=== PATIENT | female | born 1935 | race Caucasian/White ===

== ENCOUNTER 2016-07-30 04:28 | Inpatient (IN) | payer MEDICARE ==
[~2016-07-30] VITALS: Ht 154.9 cm; Wt 104.3 kg
[2016-07-30] VITALS (12 sets, daily range): BP systolic 95–149; BP diastolic 56–92; PULSE 100–133; RESP 18–22; O2SAT 91–99
[~2016-07-30 04:28] MED LIST: AMLO-39 PO; Aspirin PO; CITA40TA PO; CLOP75TA3 PO; COMBIVENTA INH; DOCU100C PO; FERR325C PO; FLUT1DIS5 IH; FURO80TA83 PO; Isosorbide Mononitrate PO; LEVO112T4 PO; LOSA50TA37 PO; NAPR220C11 PO; NITR0.4T SL; PRAV40TA PO; TRAM50TA2 PO; TRAZ-118 PO; VITA1TAB26 PO; ZAFI20TA13 PO
--- NOTE | 2016-07-30 04:48 | ED.REPORT ---
HPI-General Illness Date of Service Jul 30, 2016 ED Provider: Pipe Tony MD An 80 year old female with a medical history including hypertension, sciatica, CHF, RI, chronic anemia, asthma, and renal cancer s/p right nephrectomy presents to the ED via EMS with bilateral buttocks pain (R>L) onset just prior to arrival, upon awakening. The pain radiates down her legs bilaterally, to her knees. The patient also reports recent cough. She denies other symptoms or injury/trauma to the area. Two days ago the patient was diagnosed with atrial fibrillation and placed on Coumadin and Cardizem. EMS found the patient with a BP of 113 systolic, in atrial fibrillation with RVR rate 110-140. Nursing Notes Stated Complaint: BUTTOCK PAIN Chief Complaint: Dysrhythmia/Cardiac Nursing Notes Reviewed: Yes Allergies: Coded Allergies: morphine (Verified Allergy, Severe, hallucinations/parinoid, 10/23/12) iodine (Verified Allergy, Mild, swelling and redness, 10/23/12) neomycin (Verified Allergy, Unknown, 01/16/14) Uncoded Allergies: TAPE (Allergy, Severe, BLISTERS, 10/23/12) Scheduled ([Isosorbide Mononitrate]) 30 MG TABLET.ER 30 MG PO HS ([Aspirin]) 81 MG TAB.CHEW 81 MG PO DAILY Amlodipine (Norvasc) 5 Mg Tablet 10 MG PO DAILY Citalopram Hydrobromide (Celexa) 40 Mg Tablet 40 MG PO DAILY Clopidogrel Bisulfate (Plavix) 75 Mg Tablet 75 MG PO DAILY Docusate Sodium (Stool Softener) 100 Mg Capsule 100 MG PO DAILY Ferrous Sulfate (Iron) 325 Mg Capsule.er 325 MG PO BID Fluticasone/Salmeterol (Advair 500-50 Diskus) 1 Each Disk.w.dev 1 PUFF IH BID Furosemide (Lasix) 80 Mg Tablet 80 MG PO DAILY Levothyroxine (Levothyroxine) 112 Mcg Tablet 112 MCG PO DAILY Losartan Potassium (Losartan Potassium) 50 Mg Tablet 50 MG PO DAILY Pravastatin (Pravastatin) 40 Mg Tablet 40 MG PO DAILY Trazodone (Trazodone) 100 Mg Tablet 100 MG PO HS Vitamin B Complex (Stress B) 1 Each Tablet 1 EACH PO DAILY Zafirlukast (Accolate) 20 Mg Tablet 20 MG PO BID Scheduled PRN Albuterol/Ipratropium (Combivent Inhaler) 14.7 Gm Aero 2 PUFFS INH PRN For Shortness of Breath Naproxen Sodium (Aleve) 220 Mg Capsule 220 MG PO PRN For Pain Nitroglycerin SL (Nitrostat) 0.4 Mg Tab.subl 0.4 MG SL Q5MIN PRN PRN For Chest Pain Tramadol (Tramadol) 50 Mg Tablet 100 MG PO BID PRN PRN For Pain General Time Seen by MD: 04:41 Chief Complaint Other (Bilateral Buttocks Pain) Hx Obtained From: Patient, EMS Arrived By: Ambulance Sudden in Onset?: Yes Onset Occurred: 1 day ago Symptom Duration: Since onset Location: : Back (Bilateral buttocks): Leg left: Leg right Quality: Painful Severity: Current: Moderate Severity: Maximum: Moderate Associated with: Reports: Cough, Denies: Fever Pertinent Negative: Relieved by nothing Context Related History: Reports Asthma, Reports Cancer, Reports GERD Recent Healthcare: Recent doctor visit Past Medical History Past Medical History RI Hypertension Renal cancer Sciatica CHF Asthma Chronic normocytic anemia GERD Reports: Thyroid disease Past Surgical History Right nephrectomy Hand x5 Reports: Appendectomy, , Hysterectomy Reports: Knee replacement Smoking History Former Smoker Ambulatory Status Independent Review of Systems + Bilateral buttocks pain (R>L) Full Review of Systems Constitutional: Denies: Fever Respiratory: Reports: Non-productive cough, Denies: Shortness of breath GI: Denies: Constipation, Diarrhea, Vomiting Musculoskeletal: Reports: Extremity pain (Bilateral upper legs) Complete sys rev & neg: except as marked. Physical Exam Vital Signs Vital Signs Date Time Temp Pulse Resp B/P Pulse Ox O2 Delivery O2 Flow Rate FiO2 07/30/16 04:36 37.8 128 18 149/92 91 Nasal Cannula 2 Initial VS: Reviewed Head / Eyes: Atraumatic, Normocephalic ENT: Conjunctiva normal, No scleral icterus Neck: Supple, Full range of motion Respiratory: Breath sounds normal, Clear to auscultation, No respiratory distress Skin: Warm, Dry, No cyanosis Psychiatric: Mood/affect normal, Behavior normal, Normal thought content General/Constitutional: Awake, Alert Cardiovascular: Heart sounds NL, No gallop, No murmurs Heart Rate / Rhythm: Positive: Irreg irregular rhythm, Tachycardia Back: Atraumatic, Straight leg raise neg Flank / Spine / Paraspinal: Positive: Lumbar spine tender... Lower Extremity / Pelvis / MS: Inspection NL, Neurologic intact, Vascular intact Neurologic: Oriented X3, Speech NL, No motor deficits, No sensory deficits Interpretation & Diagnostics CT LUMBAR SPINE: CONCLUSION: No acute findings in the lumbar spine. DJD of the spine. Lower lobe consolidations. Report transmitted to ED by Radiologist Tin Howell M.D. at 07/30/2016 - 5:36: 50 AM PST Lab Results Interpretation Result Diagram: 07/30/16 0510 07/30/16 0510 Test 07/30/16 05:10 White Blood Count 7.7th/mm3 (3.8-10.1) Red Blood Count 4.04mil/mm3 (3.90-5.20) Hemoglobin 11.2g/dL (12.0-15.6) Hematocrit 36.6% (35.0-46.0) Mean Corpuscular Volume 90.6fL (81-100) Mean Corpuscular Hemoglobin 27.7pg (27.0-35.0) Mean Corpuscular Hemoglobin Concent 30.6% (32.0-37.0) Red Cell Distribution Width 14.4% (12.3-15.4) Platelet Count 234bil/L (150-400) Neutrophils (%) (Auto) 91.4% (40-74) Lymphocytes (%) (Auto) 4.3% (14-46) Monocytes (%) (Auto) 3.0% (4-12) Eosinophils (%) (Auto) 0.9% (0-5) Basophils (%) (Auto) 0.3% (0-3) Prothrombin Time 15.0sec (8.1-12.5) Prothromb Time International Ratio 1.39ratio Activated Partial Thromboplast Time 31.9sec (22.8-33.0) Sodium Level 140mEq/L (134-144) Potassium Level 3.5mEq/L (3.5-5.2) Chloride Level 101mEq/L (97-108) Carbon Dioxide Level 25mmol/L (18-29) Blood Urea Nitrogen 24mg/dL (8-27) Creatinine 1.41mg/dL (0.57-1.00) Estimat Glomerular Filtration Rate 51mL/min (>59) Glucose Level 122mg/dL (60-99) Calcium Level 8.4mg/dL (8.5-10.1) Magnesium Level 1.8mg/dL (1.6-2.6) Total Bilirubin 0.5mg/dL (0.0-1.2) Aspartate Amino Transf (AST/SGOT) 28U/L (0-50) Alanine Aminotransferase (ALT/SGPT) 9U/L (0-32) Alkaline Phosphatase 69U/L (25-165) Troponin T 0.010ug/L (0.0-0.011) Pro-B-Type Natriuretic Peptide 714.4pg/mL (0-738) Total Protein 7.2g/dL (6.4-8.4) Albumin 3.8g/dL (3.4-5.0) Hold Smith Top Tube Received (Received) ECG Interpretation ECG Interpretation: Atrial fibrillation rate 130 Repolarization abnormality, prob rate related Prolonged QT interval Time: 16:41 Interpreted by: ED physician X-Ray Chest Interpretation Chest Xray Interpretation: Patchy consolidation in bilateral bases View: Portable, 1 view Interpretation / Wet Read by: Wet read ED physician Re-Eval/Medical Decision Med Decision/Clinical Course 80-year-old female presents with sciatic pain, with recent history of rapid A. fib started on Coumadin just two days ago. She has additional background of asthma, coronary artery disease, status post RI, prior back pain, but no recent evaluation, and history of remote renal cell carcinoma, post nephrectomy. She proves to be in continued rapid A. fib with rates between 110 140 initially. She has responded to diltiazem IV and small repetitive doses. We obtained a CT of her lumbar spine given her recent coumadinize and her relative immobility and find no evidence of hematoma or metastatic disease or other immediate issue. She is much improved after a small dose of Toradol. However incidental to her lumbar CT, consolidations of lower lobes of both lungs are seen. Review of her x-ray shows some small patchy densities bilaterally, more than low-grade atelectasis. She is coughing, but does so chronically. Begun with Rocephin and azithromycin for presumptive pneumonia. Source of Hx: Old records Counseled Regarding: Diagnosis, Lab results, Need for admission Discharge & Departure Primary Impression: Rapid atrial fibrillation Additional Impressions: Pneumonia Pneumonia type: due to unspecified organism Laterality: bilateral Lung location: lower lobe of lung Qualified Code: J18.9 - Pneumonia, unspecified organism Asthma Asthma severity: moderate persistent Asthma complication type: uncomplicated Qualified Code: J45.40 - Moderate persistent asthma, uncomplicated Sciatica Laterality: unspecified laterality Qualified Code: M54.30 - Sciatica, unspecified side Disposition: ADMITTED TO HOSPITAL Discharge Condition All VS Reviewed: Yes Condition: Improved Referrals: Hill Lucio MD (PCP) Scribjuan alberto Attestation Portions of this note were transcribed by Pia Mayfield. I, Dr. Tony, personally performed the history, physical exam, and medical decision-making; I reviewed and confirmed the accuracy of the information in the transcribed note. Signed by: Hiram Allen, 07/30/2016, 06:10 copies to: Hill Lucio MD, Christopher W MD Jul 30, 2016 04:48 PIA MAYFIELD Jul 30, 2016 05:10
[2016-07-30] MEDS ORDERED: Ketorolac 15 mg/mL Inj IVPUSH ONE (05:00)
[2016-07-30 05:22] LABS: BASOPHILS % (AUTO) 0.3 % (0-3); EOSINOPHILS % (AUTO) 0.9 % (0-5); Mean Corpuscular Hemoglobin 27.7 pg (27.0-35.0); Mean Corpuscular Volume 90.6 fL (81-100); NEUTROPHILS % (AUTO) 91.4 % (40-74); Platelet Count 234 bil/L (150-400)
[2016-07-30] MEDS: Diltiazem 5 mg/mL 5 mL Inj IVPUSH PRN ×7 (05:33→15:07)
[2016-07-30 05:43] LABS: INR 1.39 ratio
[2016-07-30 05:50] LABS: TROPONIN T 0.01 ug/L (0.0-0.011)
[2016-07-30 06:02] LABS: Magnesium 1.8 mg/dL (1.6-2.6)
[2016-07-30] MEDS ORDERED: Polyethylene Glycol (PEG) 17 Gm Powder PO PRN ×2 (06:30→10:35)
[2016-07-30] MEDS ORDERED: Alum-Mag Hydrox-Simeth 30 mL Suspension PO PRN ×3 (06:30→10:35)
[2016-07-30] MEDS ORDERED: Ondansetron 2 mg/mL 2 mL Inj IVPUSH PRN ×2 (06:30→07:00)
[2016-07-30] MEDS ORDERED: Albuterol HFA 60 Puff 8 Gm Inhaler INHALATION PRN (07:00)
[2016-07-30] MEDS ORDERED: Azithromycin Inj 500 MG in Dextrose 5% w/Vial Mate 250 ML IV ONE (07:10)
[2016-07-30] MEDS ORDERED: cefTRIAXone Inj 2,000 MG in Dextrose 5% Minibag Plus 50 ML IV ONE (07:10)
--- NOTE | 2016-07-30 07:50 | DRSVH ---
PROCEDURE: X-RAY CHEST ONE VIEW, PORTABLE ([id number]) INDICATIONS: afib TECHNIQUE: One view of the chest was acquired. COMPARISON: [facility], CR, CHEST 1 VIEW, 07/27/2016, 14:51. [facility], CR, XR CHAY ST 1VW (PORTABLE), 01/12/2016, 16:07. [facility], CR, CHEST 1VW (PORTABLE), 01/16/2014, 10 :20. FINDINGS: Surgical changes and devices: None. Lungs and pleura: No pleural effusions or pneumothorax. Mild patchy opacity at the right lung base. Mediastinum: Mediastinal contours appear normal. Heart size is enlarged. Bones and chest wall: No suspicious bony lesions. Overlying soft tissues appear unremarkable. IMPRESSION: 1. Mild right lung base atelectasis versus pneumonia. 2. Cardiomegaly. Dictated by: Rosenda Black M.D. on 07/30/2016 at 7:43 Approved by: Rosenda Black M.D. on 07/30/2016 at 7:44
--- NOTE | 2016-07-30 08:45 | DRSVH ---
PROCEDURE: CT LUMBAR SPINE WITHOUT CONTRAST ([id number]) INDICATIONS: sciatica after recent fall TECHNIQUE: Noncontrast 3 mm thick sections acquired from the T12 level to the sacrum. Sagittal and coronal refo rmats were constructed. For radiation dose reduction, the following was used: automated exposure co ntrol. COMPARISON: None. FINDINGS: Image quality: Excellent. Bones: Diffuse osteopenia, which limits evaluation. Multilevel endplate osteophytes and disc space n arrowing, indicating degenerative disc disease. There is mild grade 1 retrolisthesis of L1 on L2. The re is otherwise normal bony alignment. Moderate chronic L4 compression fracture. Multilevel facet hy pertrophy, worst at L4-L5 and L5-S1, indicating facet osteoarthritis. No acute vertebral body yecenia sue fractures. No suspicious lytic or blastic bony lesions. Central spinal caliber is of normal ov erall caliber. No pars defects. Soft tissues: There is moderate left and mild right patchy posterior basilar pulmonary airspace opac ity. No retroperitoneal masses or hematomas. Visualized aorta is normal in caliber. IMPRESSION: 1. Multilevel degenerative disc and facet disease, which could be further assessed with MRI, if clini froy indicated. 2. No fracture. 3. Bilateral lower lobe pneumonia. Dictated by: Rosenda Black M.D. on 07/30/2016 at 8:37 Approved by: Rosenda Black M.D. on 07/30/2016 at 8:39
--- NOTE | 2016-07-30 09:03 | NUR ---
Admission Patient arrived to floor from ED at approx 0900 with family member at bedside. Oriented to room and hospital policies. Admit RN at bedside to do admit.
[2016-07-30] MEDS ORDERED: ATOR80TA77 PO (09:19)
[2016-07-30] MEDS ORDERED: DILT240C89 PO (09:26)
[2016-07-30] MEDS ORDERED: WARF5TAB7 PO (09:26)
[2016-07-30] MEDS ORDERED: Albuterol 2.5 mg/3 mL Inhalation Solution NEB PRN ×2 (10:35→15:05)
[2016-07-30] MEDS: ZAFIRLUKAST 20 MG PO SCH ×2 (11:38→20:30)
--- NOTE | 2016-07-30 11:59 | PCM.PHAPRO ---
Progress Warfarin Management by Pharmacy: -Indication: afib -Inr Goal: 2-3 -[id number] Score: 5 -concurrent anticoagulation: none -H/H 11.2/36.6, Plt 234 -Inr on admit today: 1.39 -Plan: pt was started on warfarin therapy 2 days ago. external med rec indicates 5mg tablets were dispensed. will continue with warfarin 5mg this evening and monitor. serial inr's have been ordered. Anita Diaz [facility] Jul 30, 2016 11:59
--- NOTE | 2016-07-30 12:56 | PCM.HPMED ---
Subjective Date of Service Jul 30, 2016 Primary Provider: Admitting Physician: Marie Barker DO Primary Care Physician: Hill Lucio MD Attending Physician: Marie Barker DO Admit Status: From the Emergency Department Chief Complaint: B/L back and posterior leg pain to her knees History of Present Illness: An 80 year-old female with a medical history including hypertension, sciatica, CHF, AL, chronic anemia, asthma, and renal cancer s/p right nephrectomy who presented to the ED via EMS with bilateral buttocks pain (R>L) onset just prior to arrival, upon awakening. The pain radiates down the back of her legs bilaterally to her knees. The patient also reports a recent cough. She denies other symptoms or injury/trauma to the area. Two days ago the patient was diagnosed with atrial fibrillation and placed on Coumadin and Cardizem at [facility]. EMS found the patient with a BP of 113 systolic, in atrial fibrillation with RVR rate 110-140. In the ED, X-ray revealed small patchy densities B/L. Lumbar spine CT found no evidence of hematoma or metastatic disease but did find consolidations of both lower lobes of her lungs. She was given IV ceftriaxone and Azithromycin. Review of Systems: Positive per HPI, otherwise negative. Allergies Coded Allergies: morphine (Verified Allergy, Severe, hallucinations/parinoid, 10/23/12) iodine (Verified Allergy, Mild, swelling and redness, 10/23/12) neomycin (Verified Allergy, Unknown, 01/16/14) Uncoded Allergies: TAPE (Allergy, Severe, BLISTERS, 10/23/12) Home Medications From medication reconciliation: Citalopram 40mg daily Clopidogrel 75 mg daily Diltiazem ER 240mg daily Levothyroxine 112 mcg daily Warfarin Aspirin 81mg daily Ferrous sulfate 325 mg BID Advair 500-50 BID Naproxen 220mg PRN Zafirlukast 20mg PO BID Tramadol 100mg BID pRN trazodone 100mg PO HS vitamin B complex syed Combivent inhaler PRN Docusate 100mg daily PMH Afib with RVR AL Hypertension Renal cancer Sciatica CHF Asthma Chronic normocytic anemia GERD Thyroid disease Surgical History Right nephrectomy Hand x5 Appendectomy, , Hysterectomy Knee replacement Family History Non-contributory Social History Hx Alcohol Use: No Hx Substance Use: No Hx Tobacco Use: Yes Smoking Status: Former Smoker Living Arrangement: with Family (son lives in apartment above hers) Exam Vital Signs Vital Sign - Last Date Time Temp Pulse Resp B/P Pulse Ox O2 Delivery O2 Flow Rate FiO2 07/30/16 12:05 109 20 95 Nasal Cannula 1.00 07/30/16 09:00 38.3 123/67 Exam General/Constitutional: Awake, Alert x3 Head / Eyes: Atraumatic, Normocephalic ENT: Conjunctiva normal, No scleral icterus Neck: Supple, Full range of motion Respiratory: Crackles in B/L bases, no respiratory distress. Upon recheck 3 hours later and after her lasix, her lungs had improved to only a mild expiratory wheezing Cardiovascular: Irregularly irregular, tachycardic, No gallop, No murmurs Skin: Warm, Dry, No cyanosis Psychiatric: Mood/affect normal, Behavior normal, Normal thought content Neuro: speech normal, CN II-XII normal Lab and Diagnostics Result Diagram: 07/30/16 0510 07/30/16 0510 X-Rays, CTs and MRIs 07/30/16 X-RAY CHEST ONE VIEW, PORTABLE INDICATIONS: afib TECHNIQUE: One view of the chest was acquired. COMPARISON: [facility], , CHEST 1 VIEW, 07/27/2016, 14:51. [facility], , XR CHEST 1VW (PORTABLE), 01/12/2016, 16:07. [facility], , CHEST 1VW (PORTABLE), 01/16/2014, 10:20. FINDINGS: Surgical changes and devices: None. Lungs and pleura: No pleural effusions or pneumothorax. Mild patchy opacity at the right lung base. Mediastinum: Mediastinal contours appear normal. Heart size is enlarged. Bones and chest wall: No suspicious bony lesions. Overlying soft tissues appear unremarkable. IMPRESSION: 1. Mild right lung base atelectasis versus pneumonia. 2. Cardiomegaly. Dictated by: Rosenda Black M.D. on 07/30/2016 at 7:43 Approved by: Rosenda Black M.D. on 07/30/2016 at 7:44 07/30/16 CT LUMBAR SPINE WITHOUT CONTRAST INDICATIONS: sciatica after recent fall TECHNIQUE: Noncontrast 3 mm thick sections acquired from the T12 level to the sacrum. Sagittal and coronal reformats were constructed. For radiation dose reduction, the following was used: automated exposure control. COMPARISON: None. FINDINGS: Image quality: Excellent. Bones: Diffuse osteopenia, which limits evaluation. Multilevel endplate osteophytes and disc space narrowing, indicating degenerative disc disease. There is mild grade 1 retrolisthesis of L1 on L2. There is otherwise normal bony alignment. Moderate chronic L4 compression fracture. Multilevel facet hypertrophy, worst at L4-L5 and L5-S1, indicating facet osteoarthritis. No acute vertebral body compression fractures. No suspicious lytic or blastic bony lesions. Central spinal caliber is of normal overall caliber. No pars defects. Soft tissues: There is moderate left and mild right patchy posterior basilar pulmonary airspace opacity. No retroperitoneal masses or hematomas. Visualized aorta is normal in caliber. IMPRESSION: 1. Multilevel degenerative disc and facet disease, which could be further assessed with MRI, if clinically indicated. 2. No fracture. 3. Bilateral lower lobe pneumonia. Dictated by: Rosenda Black M.D. on 07/30/2016 at 8:37 Approved by: Rosenda Black M.D. on 07/30/2016 at 8:39 . 12-lead ECG ECG Interpretation: Atrial fibrillation rate 130 Repolarization abnormality, prob rate related Prolonged QT interval Time: 16:41 Interpreted by: ED physician Reviewed, Resident Mathew Assessment & Plan Patient is an 80 year-old female with a medical history that includes hypertension, sciatica, CHF, AL, atrial fibrillation, chronic anemia, asthma, and renal cancer s/p right nephrectomy who presented to the ED via EMS with bilateral buttocks pain (R>L) that radiated down her legs to her knees. 1. Community acquired pneumonia, present on admission, acute - Seen on x-ray and CT - Is not septic - blood cultures, legionella, strep pneumo, viral PCR, MRSA pending - Ceftriaxone and azithromycin stared in the ED, will continue but will consider prolonged QTc. Azithromycin: possibly reduce dosage to 250 depending upon repeat EKG 2. Atrial fibrillation with RVR, present on admission, just began warfarin for anticoagulation 2 days ago and subtherapeutic - newly diagnosed 07/27/16 in [place] - HR 130s when came in. - Diltiazem injections given for a total of 25mg. Started her on oral diltiazem 120mg daily with parameters for diltiazem 5mg injections. She reportedly was started on 240mg two days ago. Will monitor and discharge on appropriate dose. - Telemetry - Continue Clopidogrel 75 mg daily - warfarin per pharmacy - Consult cardiology 3. Heart failure with preserved ejection fraction, present on admission, chronic last echo: december/2013. LV size upper limits of normal. LV systolic function is normal. EF 60-65%. Apical septal wall mild hypokinesis. Diastolic parameters suggests a pseudonormalization pattern, consistent with elevated filling pressures. RV normal size and function. L atrium is severely dilated. No significant valvular heart disease and aortic root is normal size. 4. Hypothyroid, present on admission, chronic - Continue Levothyroxine 112 mcg daily - TSH pending 5. Chronic anemia, present on admission - Continue Ferrous sulfate 325 mg BID 6. Chronic kidney failure, present on admission, chronic - Unknown if BINU because last creatinine was 1.2, two years ago - Careful with nephrotoxic medications - labs again tomorrow 7. Hypertension, present on admission, chronic - continue Amlodipine 10mg daily, Losartan 50mg daily, Isosorbide mononitrate 30mg HS 8. Dyslipidemia, present on admission, chronic - continue Atorvastatin 80 mg daily 9. COPD, present on admission, chronic - DuoNebs Q6hrs; albuterol inhalers Q4hrs PRN 10. Depression, present on admission, chronic - Continue Citalopram 40mg daily 11. CAD with history of AL, present on admission - Note that QTc was 555 on admission 12. Allergies, present on admission, chronic - continued Zafirlukast 13. Acute on chronic pain, present on admission - continued home tramadol PRN - consider another ketorolac injection (patient states worked well in the ED) - osteopathic manipulative treatment PRN - Acetaminophen as needed for mild pain/fever/headache - Bowel regimen as needed & continued home dose of docusate - Antiemetic as needed Patient admitted under inpatient status with expected length of stay > 2 midnights for severity of present symptoms, complexities of treatment plan and risk for adverse events CODE STATUS: DNR/DNI confirmed with patient 07/30/16 VTE Prophylaxis: Other (on warfarin) VTE Mechanical Devices: Intermittant Pneumatic CD Resuscitation Status: DNR/DNI:Do Not Resuscitate/Intubate Attending Statement The patient was seen and examined together with Dr. Carmona on 07/30/16 and I agree with the history, exam and plan as outlined in the note above. Kaylyn Carmona DO Jul 30, 2016 12:55 Ruth Gold DO Aug 01, 2016 13:24
[2016-07-30] MEDS: Fluticasone-Salmeterol 500-50 Inhaler INHALATION SCH ×2 (13:02→20:36)
[2016-07-30] MEDS ORDERED: Glucose 40% Oral Gel 15 Gm Tube PO PRN (13:25)
[2016-07-30] MEDS: Diltiazem CD 120 mg ER24 Capsule PO SCH (13:43)
[2016-07-30] MEDS ORDERED: Diltiazem CD 120 mg ER24 Capsule PO ONE (15:30)
--- NOTE | 2016-07-30 16:19 | NUR ---
Social Work: Initial Assessment Data: Pt is an 80 y/o female admitted for rapid AFIB, sciatia. Pt's PCP is Dr Lucio, pt's insurance is Medicare with [employer] opt supp. EMR reviewed. [employer] AGENT met with pt at bedside, role explained. Pt states that she lives in a single story home with her family where she uses a walker when out and about. Pt drives, has no hx of HH or SNF, no LTC or VA benefits and is not a caregiver. No d/c planning needs identified at this time. [employer] AGENT will continue to follow if needs arise. Assessment: Pt who is independent at baseline. Plan: Pt will d/c home via POV when medically stable. No d/c planning needs identified at this time. [employer] AGENT will continue to follow if needs arise. BRE Jackson Addendum: 07/30/16 at 1621 by SACHI LIVINGSTON Amended: Links added.
[2016-07-30] MEDS ORDERED: Insulin LISPRO 300 Unit/3 mL Inj SUBQ SCH (17:30)
--- NOTE | 2016-07-30 17:34 | NUR ---
Cardiac Patient continues to have HR A-fib 120-130's. C/o "pressure" in sternum. C/o of nausea with no emesis. Slightly diaphoretic. Denies dizziness or numbness/tingling in arms. MD notified. Due to BP no nitro given. EKG initiated. Orders to bolus. Continue frequent monitoring.
[2016-07-30] MEDS ORDERED: 0.9% Sodium Chloride 500 ML IV ONE (17:45)
[2016-07-30] MEDS: Albuterol-Ipratropium 3 mL Inhalation Solution NEB SCH ×2 (19:49→19:50)
[2016-07-30] MEDS: Isosorbide Mononitrate 30 mg ER24 Tablet PO SCH (20:35)
[2016-07-31] VITALS (12 sets, daily range): BP systolic 104–136; BP diastolic 55–82; PULSE 83–129; RESP 16–20; O2SAT 91–98
[2016-07-31] MEDS: Diltiazem 5 mg/mL 5 mL Inj IVPUSH PRN (01:10)
--- NOTE | 2016-07-31 05:59 | NUR ---
Cardizem Administered Cardizem 5mg IV push during the night x 1. For sustained HR greater than 110. Pt HR continues to jump unsustained from 90's - 130's. No complaints of chest pain or discomfort at this time. Denies n/v. Pt reports, "feeling better." Call light within reach, using appropriately. Pleasant and cooperative with care.
--- NOTE | 2016-07-31 06:03 | NUR ---
Temp Pt temp 38.0. Administered Tylenol PO, effective. Fever resolved. Will continue to monitor. Bed locked, low position. Call light within reach, using appropriately.
[2016-07-31 06:24] LABS: INR 2.76 ratio
[2016-07-31] MEDS: Albuterol-Ipratropium 3 mL Inhalation Solution NEB SCH ×4 (07:41→19:26)
[2016-07-31 07:59] LABS: INR 2.85 ratio
--- NOTE | 2016-07-31 08:23 | PCM.PHAPRO ---
Progress Warfarin Management by Pharmacy: -Indication: afib -Inr Goal: 2-3 -[id number] Score: 5 -concurrent anticoagulation: none -Coagulation Trends: -Jul 31-Jul 1.39 2.76 1.37 5MG HOLD -Plan: significant rise in Inr overnight. will hold dose this evening and follow Anita Diaz rock Jul 31, 2016 08:23
[2016-07-31] MEDS: ZAFIRLUKAST 20 MG PO SCH ×2 (08:30→20:30)
[2016-07-31] MEDS ORDERED: Magnesium Sulf 2 Gm/50mL Water 2 GM in IV Premix 1 EACH IV ONE (08:30)
[2016-07-31 08:50] LABS: BASOPHILS % (AUTO) 0.2 % (0-3); EOSINOPHILS % (AUTO) 0.5 % (0-5); MONOCYTES % (AUTO) 6.8 % (4-12); Mean Corpuscular Hemoglobin 27.5 pg (27.0-35.0); Mean Corpuscular Volume 91.9 fL (81-100); NEUTROPHILS % (AUTO) 83.7 % (40-74); Platelet Count 173 bil/L (150-400)
[2016-07-31] MEDS: Diltiazem CD 120 mg ER24 Capsule PO SCH (09:12)
[2016-07-31] MEDS: Fluticasone-Salmeterol 500-50 Inhaler INHALATION SCH ×2 (09:13→21:07)
[2016-07-31] MEDS: cefTRIAXone Inj 2,000 MG in Dextrose 5% Minibag Plus 50 ML IV SCH (09:14)
[2016-07-31] MEDS ORDERED: Diltiazem CD 240 mg ER24 Capsule PO ONE (10:00)
[2016-07-31] MEDS ORDERED: Potassium Chloride 20 mEq SR Tablet PO ONE (11:00)
--- NOTE | 2016-07-31 11:13 | NUR ---
Evaluation completed. Please go to "Notes" then click on "Assessments and Notes" (bottom left corner of screen). Then select appropriate discipline tab on top of screen.
--- NOTE | 2016-07-31 16:32 | CONS ---
[address] [address] CONSULTATION REPORT PATIENT: DANITZA PUTNAM : 1935 MR#: [id number] ADMIT: 07/30/2016 JOB ID: [id number] DATE OF SERVICE: 07/31/2016 CHIEF COMPLAINT: Atrial fibrillation with rapid ventricular response. HISTORY OF PRESENT ILLNESS: The patient is an 80-year-old woman with history of hypertension, sciatica, history of non-ST- elevation MN and asthma. She says that she was just recently treated at [facility] for atrial fibrillation with rapid ventricular response. 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, she went to have her blood pressure checked. There was concern about her heart rate and she was admitted for treatment of atrial fibrillation with rapid ventricular response. She was placed on an oral diltiazem dose. She was also placed on Coumadin. She said she felt quite well upon discharge from [facility], but on the day of admission, she woke up and felt just awful, just very nauseated and with some vomiting. She went to the ED and was found to have atrial fibrillation with rapid ventricular response. She had a chest x-ray that showed mild right lung base atelectasis versus pneumonia. Since she has been admitted, she has now been put on her correct doses of her oral diltiazem. Her heart rates yesterday and through the night were in the one-teens to 120s but they have come down after she just recently got an increased dose of diltiazem. She is also being treated with warfarin. She has also had findings consistent with a pneumonia with an elevated procalcitonin. She has been started on antibiotics for this. She said she feels fairly well. She denies any chest pressure, chest heaviness. She denies palpitations but reports some coughing some of which has been productive. Sputum is being sent for microbiology. She does not report orthopnea, PND. She has some chronic swelling of her legs which may related to venous issues. She has tried to use compression stockings but they have been too uncomfortable and too difficult to put on. Currently, she says she is doing fairly well. PAST MEDICAL HISTORY/PROBLEM LIST: 1. History of hypertension. 2. Recent diagnosis of atrial fibrillation at [facility]. 3. Asthma. 4. History of non-STEMI. HOME MEDICATIONS: Include: 1. Citalopram. 2. Plavix 75. 3. Diltiazem maybe 200 or 300 mg daily. 4. Levothyroxine 112 mcg daily. 5. Warfarin. 6. Aspirin. 7. Ferrous sulfate. 8. Advair. 9. Tramadol. 10. Trazodone. 11. Combivent inhaler. SOCIAL HISTORY: No tobacco. No significant alcohol. FAMILY HISTORY: No early coronary disease. REVIEW OF SYSTEMS: Overall health: No fevers, chills, or night sweats. GI: She had some nausea and vomiting preceding her admission, none at this time. : No dysuria, no hematuria. Pulmonary: Increased cough. No profound increase of shortness of breath. Cardiac: No chest pressure, chest heaviness. Some tightness with breathing likely related to pneumonia. She is in atrial fibrillation but is not aware of significant palpitations. ENT: No sore throat, difficulty swallowing. Derm: No rash or skin breakdown. Heme: No easy bruising or bleeding. Endocrine: She is treated for hypothyroid. Her free T4 is within normal limits, although the TSH is somewhat low. No heat or cold intolerance. Musculoskeletal: She actually had some sciatica type pain that also brought her to the ED. Psych: No acute issues. Neuro: No headache, no history of stroke. All other review of systems on a 12 point review of systems are negative. PHYSICAL EXAMINATION: Blood pressure is in the range of 104-120/55-74. Heart rate is in the range of 90s to low 100s. General: In no acute distress. Speaking in full sentences without apparent shortness of breath. Head and neck exam: Normocephalic, atraumatic. Neck: Do not appreciate obvious JV distention. Heart exam: Tachycardic, irregular without obvious murmurs, gallops, rubs appreciated. Lungs with crackles at the bases. Abdomen: Soft nondistended, nontender. Extremities: Mild edema (chronic). One to 2+ DP pulses appreciated. Skin without breakdown appreciated. Neurologic: Alert, oriented x3. Gait is not tested. Psych: Appropriate mood and affect. ENT: Mucous membranes moist. No oropharyngeal erythema. Ophtho: Vision is grossly intact. CURRENT MEDICATIONS: Include: 1. Ceftriaxone. 2. Ferrous sulfate. 3. Advair inhaler. 4. Plavix 75. 5. Amlodipine 10 daily. 6. Celexa. 7. Levothyroxine. 8. Diltiazem is now 300 daily just recently adjusted up. 9. Tramadol. LABORATORIES: Show a sodium 139, potassium 2.5, chloride and bicarb 101 and 19 respectively. BUN and creatinine 21 and 1.33. Troponins not elevated. Hematology shows white count 10.2, H and H 9.5, 31.8, platelets 173,000. She also had lumbar spine imaging performed which showed multilevel degenerative disease and facet disease with no fractures. Evidence for bilateral lower lobe pneumonia. IMPRESSION: The patient has no history of atrial fibrillation but was recently diagnosed at [facility]. This may have been the preceding symptom prior to the development of her pneumonia. She felt very, very ill with some nausea and vomiting prior to admission. Also reported some back pain. She does report a productive cough, but no chest heaviness or pressure. Her troponins have been negative and her rates are getting better controlled with adjustments of her diltiazem dose. PLAN/RECOMMENDATIONS: 1. I would continue with diltiazem and warfarin as I doubt she would go out of atrial fibrillation while she is being treated for an infection. 2. Will keep an eye on her. I have checked her heart rates on telemetry. They are still averaging in the low 100s and goal would be to get her average heart rates below 100 if possible, so we will check on her and adjust her medications as tolerated. 3. Since she is being treated with amlodipine, if we need blood pressure to work with, which we may need, I would stop the amlodipine and go to one calcium channel ludin, that being diltiazem. I spent 40 minutes speaking with the patient, reviewing her chart, and examining the patient. REYNA
--- NOTE | 2016-07-31 17:11 | PCM.PNMED ---
Subjective Date of Service Jul 31, 2016 Remedios Han is an 80-year-old with a past medical history significant for hypertension, sciatica, CHF, IA, atrial fibrillation, chronic anemia, asthma, and renal cancer s/p right nephrectomy who presented to the ED via EMS with bilateral buttocks pain (R>L) that radiated down her legs to her knees before community acquired pneumonia and atrial fibrillation with RVR. Hospital day #2. Overnight: There were no acute events. Telemetry overnight was atrial fibrillation, heart rate 100-120's, with runs up to 140's and no other ectopy. The patient is resting in bed comfortably and in no acute distress. She denies headache, palpitations, chest pain, shortness of breath, abdominal pain, nausea , vomiting, fever, chills, dysuria, diarrhea or constipation. She endorses productive cough. She is voiding and eliminating without difficulty. She is up ambulating with assistance. . Exam Vital Signs Vital Sign - Last Date Time Temp Pulse Resp B/P Pulse Ox O2 Delivery O2 Flow Rate FiO2 07/31/16 13:36 36.8 86 16 110/62 95 Room Air 07/31/16 05:04 2.00 Intake and Output 07/30/16 07/30/16 07/31/16 Cumulative From/Thru 15:00 23:00 07:00 07/30/16 04:36 - 07/31/16 06:37 Intake Total 800 ml 870 ml 1670 ml Output Total 450 ml 1000 ml 1450 ml Balance 350 ml -130 ml 220 ml Intake Oral 800 ml 350 ml 1150 ml IV Total 520 ml 520 ml Output Urine Total 450 ml 1000 ml 1450 ml # Bowel Movements 1 1 Exam General: Elderly female lying in bed and in no acute distress, well-developed, well-nourished, appropriately interactive HEENT: Normocephalic, atraumatic. External ears without defect. Pupils equal, round, and reactive to light. Anicteric sclerae, moist conjunctivae, and no lid lag. Mild blepharitis of the left eye. Oropharynx free of erythema and cobble stoning with moist mucosa. Neck: Supple with full range of motion. No jugular venous distension. No bruits. No lymphadenopathy or thyromegaly. Cardiovascular: Irregularly irregular rhythm without murmurs, rubs, or gallops appreciated Pulmonary: Clear to auscultation bilaterally with no crackles, wheezes, or rhonchi. Normal respiratory effort with no use of accessory muscles. Abdomen: Bowel tones present. Soft, nontender, nondistended. No hepatosplenomegaly or masses appreciated. Extremities: No clubbing, cyanosis, or edema. Skin: Normal temperature, turgor, and texture; no rash, ulcers, or subcutaneous nodules appreciated. Neurological: Cranial nerves grossly intact. Normal muscle strength, tone, and bulk. Reflexes, coordination, and sensory function within normal limits. No known gait impairment. Psychiatric: Normal mood and affect. Alert and oriented to person, place, and time. . IVs and Medications Medications Reviewed: Medications were reviewed in detail Lab and Diagnostics Item Value Date Time Magnesium Level 2.0 mg/dL 07/31/16 0736 Procalcitonin 1.82 ng/mL H 07/31/16 0540 Thyroid Stimulating Hormone (TSH) 0.381 uIU/mL L 07/31/16 0540 Free Thyroxine 1.56 ng/dL 07/31/16 0736 Result Diagram: 07/31/16 0500 07/31/16 0736 Microbiology Respiratory viral PCR negative. Blood culture 2 shows no growth after 24 hours. MRSA screen pending. Sputum culture pending. Strep pneumoniae and legionella urine antigens negative. . X-Rays, CTs and MRIs X-RAY CHEST ONE VIEW, PORTABLE IMPRESSION: 1. Mild right lung base atelectasis versus pneumonia. 2. Cardiomegaly. Dictated by: Rosenda Black M.D. on 07/30/2016 at 7:43 Approved by: Rosenda Black M.D. on 07/30/2016 at 7:44 CT LUMBAR SPINE WITHOUT CONTRAST IMPRESSION: 1. Multilevel degenerative disc and facet disease, which could be further assessed with MRI, if clinically indicated. 2. No fracture. 3. Bilateral lower lobe pneumonia. Dictated by: Rosenda Black M.D. on 07/30/2016 at 8:37 Approved by: Rosenda Black M.D. on 07/30/2016 at 8:39 . Assessment & Plan Mayi Han is an 80-year-old with a past medical history significant for hypertension, sciatica, CHF, IA, atrial fibrillation, chronic anemia, asthma, and renal cancer s/p right nephrectomy who presented to the ED via EMS with bilateral buttocks pain (R>L) that radiated down her legs to her knees before community acquired pneumonia and atrial fibrillation with RVR. Hospital day #2. 1. Acute community-acquired pneumonia, present on admission. Active. - Chest x-ray shows right lung base consolidation, as above. - Respiratory viral PCR negative, as above. - Blood culture 2 shows no growth after 24 hours, as above. - MRSA screen and sputum culture pending. - Strep pneumoniae and legionella urine antigens negative, as above. - Continue ceftriaxone and azithromycin, day #2. 2. Acute on chronic kidney disease, present on admission. Resolving. - Unclear baseline creatinine. Last creatinine on file 1.2 in 2013. - Avoid nephrotoxic agents. - Continue to monitor renal function and urine output daily. - Received gentle IV fluid hydration now discontinued. Encourage PO intake. 3. Atrial fibrillation with RVR, present on admission, just began warfarin for anticoagulation 2 days ago and subtherapeutic - Newly diagnosed 07/27/[address] [facility] HR 130s on admission. - Patient reportedly was started on diltiazem CD 240 mg two days ago. Continue diltiazem CD 300 mg daily. - Continue to monitor on telemetry. - Continue warfarin with dosing per pharmacy. 4. Heart failure with preserved ejection fraction, chronic. Presumed stable. last echo: december/2013. LV size upper limits of normal. LV systolic function is normal. EF 60-65%. Apical septal wall mild hypokinesis. Diastolic parameters suggests a pseudonormalization pattern, consistent with elevated filling pressures. RV normal size and function. L atrium is severely dilated. No significant valvular heart disease and aortic root is normal size. 5. Hypothyroid, present on admission, chronic - TSH borderline low but normal T4, therefore, lowered levothyroxine 100 g daily. 6. Chronic anemia, present on admission - Continue Ferrous sulfate 325 mg BID. 8. Hypertension, chronic. Presumed stable. - Discontinued amlodipine 10 mg daily per cardiology's recommendations. - Continue Losartan 50mg daily and Isosorbide mononitrate 30mg HS. 9. Hyperlipidemia,chronic. Presumed stable. - Continue Atorvastatin 80 mg daily 10. COPD, present on admission, chronic - DuoNebs Q6hrs; albuterol inhalers Q4hrs PRN. 11. Depression, chronic. Presumed stable. - Continue Citalopram 40mg daily. 12. CAD with history of IA, chronic. Presumed stable. - Continue clopidogrel 75 mg daily atorvastatin 80 mg daily at bedtime. 13. Allergies, chronic. Presumed stable. - Continue Zafirlukast. 14. Chronic pain. Presumed stable. - Continue home tramadol PRN. - Osteopathic manipulative treatment PRN. PRN antiemetics: Zofran and Maalox. PRN bowel regimen: Senna and MiraLAX. PRN analgesics: Tylenol. Patient admitted under inpatient status with expected length of stay > 2 midnights for severity of present symptoms, complexities of treatment plan and risk for adverse events . VTE Prophylaxis: Other (on warfarin) VTE Mechanical Devices: Intermittant Pneumatic CD Resuscitation Status: DNR/DNI:Do Not Resuscitate/Intubate Attending Statement The patient was seen and examined together with Dr. Hester on 07/31/16 and I agree with the history, exam and plan as outlined in the note above. Magda Hester DO Jul 31, 2016 17:11 Ruth Gold DO Aug 01, 2016 13:21
--- NOTE | 2016-07-31 18:21 | NUR ---
BP/HR Pt's BP 104/55 this am prior to medication administration, Pt on multiple BP lower agents including lasix, spoke with MD, am lasix and losartan doses withheld. Pt's BP 110/62 when checked later in the shift. Pt in a fib with rates in the 100s-120s this am, spoke with MD and Pt's cardizem dose increased from 120mg daily to 300mg daily and a one time dose of 240mg cardizem given in addition to this am's 240mg dose. Pt's HR upper 90s - 110s by end of shift.
[2016-07-31] MEDS: Isosorbide Mononitrate 30 mg ER24 Tablet PO SCH (21:08)
[2016-07-31] MEDS: Fluticasone 0.05% 15 Spray/2 Gm 16 Gm Nasal Spray NASAL SCH (22:40)
[2016-08-01] VITALS (11 sets, daily range): BP systolic 105–130; BP diastolic 43–73; PULSE 72–121; RESP 18–20; O2SAT 92–94
--- NOTE | 2016-08-01 05:57 | NUR ---
Pain/NOC shift: Pt c/o back pain, medication administered; effective. C/o GRACE, stated that she's used to drinking a pot of coffee daily and hadn't had any, and c/o sinus pain/pressure; RN provided caffeine and a new order for Flonase; effective. Continues to have a productive cough, febrile during the night. HR low 100's while in bed, 140-150 with activity. Pt slept on/off throughout the night, pleasant and cooperative with care.
[2016-08-01] MEDS: Albuterol-Ipratropium 3 mL Inhalation Solution NEB SCH ×4 (07:18→20:03)
[2016-08-01 07:24] LABS: BASOPHILS % (AUTO) 0.2 % (0-3); EOSINOPHILS % (AUTO) 0.6 % (0-5); MONOCYTES % (AUTO) 8.5 % (4-12); Mean Corpuscular Hemoglobin 27.5 pg (27.0-35.0); Mean Corpuscular Volume 90.1 fL (81-100); NEUTROPHILS % (AUTO) 82.7 % (40-74); Platelet Count 163 bil/L (150-400)
[2016-08-01 07:37] LABS: INR 3.07 ratio
[2016-08-01] MEDS: cefTRIAXone Inj 2,000 MG in Dextrose 5% Minibag Plus 50 ML IV SCH (07:37)
[2016-08-01] MEDS ORDERED: 0.9% Sodium Chloride 250 ML ONE (07:42)
[2016-08-01] MEDS ORDERED: Azithromycin Inj 500 MG in Dextrose 5% w/Vial Mate 250 ML IV SCH (08:30)
[2016-08-01] MEDS ORDERED: Diltiazem CD 300 mg ER24 Capsule PO SCH (08:30)
[2016-08-01] MEDS: ZAFIRLUKAST 20 MG PO SCH ×2 (08:30→20:30)
[2016-08-01] MEDS: Fluticasone-Salmeterol 500-50 Inhaler INHALATION SCH ×2 (08:38→21:35)
[2016-08-01] MEDS: Fluticasone 0.05% 15 Spray/2 Gm 16 Gm Nasal Spray NASAL SCH ×2 (08:39→21:35)
--- NOTE | 2016-08-01 11:08 | PROG NOTE ---
[address] [address] PROGRESS NOTE PATIENT: DANITZA PUTNAM : 1935 MR#: [id number] ADMIT: 07/30/2016 JOB ID: [id number] DATE: 08/01/2016 SUBJECTIVE: The patient came in with pneumonia and atrial fibrillation with rapid ventricular response. She has had her diltiazem dose increased. She is on warfarin. She feels much better in regards to her breathing. She has had some problems with back pain overnight which may need to be dealt with pain medications. PHYSICAL EXAMINATION: Blood pressure is 130/60. Heart rate in the low 100s-110s. Sats are 92% on room air. General: In no acute distress. Speaking in full sentences without apparent shortness of breath. Head and neck exam: Normocephalic, atraumatic. Neck: I do not appreciate obvious JV distention. Heart exam: Somewhat distant sounds. Irregular. Lungs have improved aeration on exam today. Abdomen is soft. Extremities with a similar degree of edema. No increase. CURRENT MEDICATIONS: Include: 1. Colace. 2. Diltiazem 300 daily. 3. Furosemide 80 mg daily. 4. Celexa. 5. Losartan 50 daily. 6. Plavix 75 daily. 7. Levothyroxine. 8. Ceftriaxone. 9. Isosorbide mononitrate. LABORATORIES: Show white count 8.7, H and H 9.2 and 30.2, platelets 163,000. Chemistry shows sodium 138, potassium 3.6, chloride and bicarb 102 and 21, respectively. BUN and creatinine 18 and 1.12. This is improved. Procalcitonin is still elevated, but has decreased. INR is in the therapeutic range. IMPRESSION: The patient has being treated for pneumonia. Heart rates have improved with the increase of diltiazem. Per my note yesterday, amlodipine was discontinued, and this will give us some room to increase her diltiazem dose. She is at 300 mg daily of long-acting diltiazem. Options are to try to go up to the next dose, which would be 360 mg daily, or to add another dose in the evening of a lower value to get better control. I will leave that to the hospital team. The patient says she is awaiting results of the swallowing study to see if she is able to take oral meds and normal food intake. She has not heard much about that. Ultimately, when we get her reasonably rate controlled, I will be happy to see her in follow up with Cardiology. REYNA
--- NOTE | 2016-08-01 11:55 | NUR ---
Evaluation completed. Please go to "Notes" then click on "Assessments and Notes" (bottom left corner of screen). Then select appropriate discipline tab on top of screen.
--- NOTE | 2016-08-01 13:21 | NUR ---
Social Work-readiness for discharge: Data:EMR reviewed. Pt is on day 2 of hospitalization for rapid afib per H&P. Per MD, pt is not medically stable today anticipate 1-2 days. PT worked with pt today and pt ambulated 250 ft recommending home no needs. ST continues to be involved. Pt to have barium swallow today. SW followed up with pt at bedside to confirm discharge plan. Pt confirms that she will be returning home. Pt declining the need for HH services. Pt states her son will be providing transport home at discharge. SW will continue to follow. Assessment:Pt who is independent at baseline. Plan:Pt to discharge home when medically stable via POV. Pt declining HH services at this time. PT has cleared pt for home no needs. ST remains involved. SW will continue to follow. BRE Pena
--- NOTE | 2016-08-01 14:29 | PCM.PHAPRO ---
Progress Date of Service: Aug 01, 2016 INR = 3.07, hgb/hct = 9.2/30.2. Pt continues on warfarin therapy for rapid afib. Goal INR 2-3. INR today is supratherapeutic at 3.07. Last warfarin dose on 07/30 was 5mg. Possible drug interactions with azithromycin and levothyroxine. Patient has a barium swallow pending; therefore, PO intake is questionable. Will hold warfarin one more day. INR ordered. Pharmacy will follow this patient's warfarin therapy. Phylicia Montes S PharmD Aug 01, 2016 14:29
--- NOTE | 2016-08-01 14:43 | DRSVH ---
PROCEDURE: X-RAY BARIUM SWALLOW WITH FOOD & VIDEOGRAPHY ([id number]) INDICATIONS: swallowing difficulties TECHNIQUE: Examination was conducted in conjunction with speech pathology per standard protocol. In the lateral projection, filming was performed of the patient swallowing. AP projection filming may also be performed with patient swallowing. COMPARISON: None. FINDINGS: Function: The oral preparatory phase appears normal, with proper containment. The subsequent oral pr opulsive phase, pharyngeal phase, and esophageal phase of swallowing also appear normal with all prof fered substances. Silent tracheobronchial aspiration. No pathologic vallecular pooling. The attend ing physician was personally present in the room during the examination. Morphology: No cricopharyngeal bar is identified. No cervical esophageal webs. No Zenker's diverti culum. No strictures. IMPRESSION: Silent tracheobronchial aspiration. Dictated by: Quincy Cantor [facility] Interpreted: Caity Bingham MD on 08/01/2016 at 14:42 Transcribed by: STEPHAN on 08/01/2016 at 14:42 Approved by: Caity Bingham MD, PhD on 08/01/2016 at 16:37
--- NOTE | 2016-08-01 14:56 | PCM.PNMED ---
Subjective Date of Service Aug 01, 2016 Remedios Han is an 80-year-old with a past medical history significant for hypertension, sciatica, CHF, [place], atrial fibrillation, chronic anemia, asthma, and renal cancer s/p right nephrectomy who presented to the ED via EMS with bilateral buttocks pain (R>L) that radiated down her legs to her knees before community acquired pneumonia and atrial fibrillation with RVR. Overnight: There were no acute events. Telemetry overnight was atrial fibrillation, heart rate 100's, with runs up to 150's during activity. This morning, she reports that she continues to feel pieces of food, mostly bread, get stuck in her throat on the right side. She has noticed a lump on her right side underneath her chin. She will cough and the pieces of food will come up. She does not have chest pain, dyspnea, fever, chills, abdominal pain, or diarrhea. Exam Vital Signs Vital Sign - Last Date Time Temp Pulse Resp B/P Pulse Ox O2 Delivery O2 Flow Rate FiO2 08/01/16 12:35 76 20 94 Room Air 08/01/16 09:56 37.5 121/ 07/31/16 05:04 2.00 Intake and Output 07/31/16 07/31/16 08/01/16 Cumulative From/Thru 15:00 23:00 07:00 07/30/16 04:36 - 08/01/16 05:29 Intake Total 900 ml 2570 ml Output Total 1450 ml Balance 900 ml 1120 ml Intake Oral 900 ml 2050 ml IV Total 520 ml Output Urine Total 1450 ml # Voids 3 3 # Bowel Movements 1 Exam General: Elderly female lying in bed and in no acute distress, well-developed, well-nourished, appropriately interactive HEENT: Normocephalic, atraumatic. External ears without defect. Pupils equal, round, and reactive to light. Anicteric sclerae, moist conjunctivae, and no lid lag. Mild blepharitis of the left eye. Oropharynx free of erythema and cobble stoning with moist mucosa. Neck: Palpable submandibular mass 3-4 cm in length. Supple with full range of motion. No jugular venous distension. No bruits. No lymphadenopathy or thyromegaly. Cardiovascular: Irregularly irregular rhythm without murmurs, rubs, or gallops appreciated Pulmonary: Clear to auscultation bilaterally with no crackles, wheezes, or rhonchi. Normal respiratory effort with no use of accessory muscles. Abdomen: Bowel tones present. Soft, nontender, nondistended. No hepatosplenomegaly or masses appreciated. Extremities: No clubbing, cyanosis, or edema. Skin: Normal temperature, turgor, and texture; no rash, ulcers, or subcutaneous nodules appreciated. Neurological: Cranial nerves grossly intact. Normal muscle strength, tone, and bulk. Reflexes, coordination, and sensory function within normal limits. No known gait impairment. Psychiatric: Normal mood and affect. Alert and oriented to person, place, and time. IVs and Medications Medications Reviewed: Medications were reviewed in detail Lab and Diagnostics Result Diagram: 08/01/1670408/01/16704 Microbiology Respiratory viral PCR negative. Blood culture 2 shows no growth after 24 hours. MRSA screen pending. Sputum culture pending. Strep pneumoniae and legionella urine antigens negative. . X-Rays, CTs and MRIs X-RAY CHEST ONE VIEW, PORTABLE IMPRESSION: 1. Mild right lung base atelectasis versus pneumonia. 2. Cardiomegaly. Dictated by: Rosenda Black M.D. on 07/30/2016 at 7:43 Approved by: Rosenda Black M.D. on 07/30/2016 at 7:44 CT LUMBAR SPINE WITHOUT CONTRAST IMPRESSION: 1. Multilevel degenerative disc and facet disease, which could be further assessed with MRI, if clinically indicated. 2. No fracture. 3. Bilateral lower lobe pneumonia. Dictated by: Rosenda Black M.D. on 07/30/2016 at 8:37 Approved by: Rosenda Black M.D. on 07/30/2016 at 8:39 . Assessment & Plan Patient is an 80 year-old female with a medical history that includes hypertension, sciatica, CHF, OH, atrial fibrillation, chronic anemia, asthma, and renal cancer s/p right nephrectomy who presented to the ED via EMS with bilateral buttocks pain (R>L) that radiated down her legs to her knees. 1. Community acquired pneumonia possible aspiration pneumonia, present on admission, acute - Seen on x-ray and CT - Is not septic - blood cultures, legionella, strep pneumo, viral PCR, MRSA pending - Ceftriaxone and azithromycin stopped and switched to Zosyn for aspiration pneumonia coverage - Barium swallow today shows trace aspiration 2. Dysphagia, chronic, present on admission. Active - Patient reports difficultly swallowing solids and has a palpable submandibular neck mass - Prior modified barium swallow imaging showed severe spontaneous gastroesophageal reflux - US neck tomorrow and consider further esophageal evaluation with esophageal manometry to repeat esophagram 3. Atrial fibrillation with RVR, present on admission, just began warfarin for anticoagulation 2 days ago and subtherapeutic - newly diagnosed 07/27/16 in [place] - HR 130s when came in. - Diltiazem injections given for a total of 25mg. Started her on oral diltiazem 120mg daily with parameters for diltiazem 5mg injections. She reportedly was started on 240mg two days ago. Will monitor and discharge on appropriate dose. - Telemetry - Continue Clopidogrel 75 mg daily - warfarin per pharmacy - Consulted cardiology. Their time and recommendations are appreciated. - Increased diltiazem to 360 mg once daily in the morning. Patient given an additional diltiazem 60 mg today to give her a total of 360 mg for the day. 4. Heart failure with preserved ejection fraction, present on admission, chronic last echo: december/2013. LV size upper limits of normal. LV systolic function is normal. EF 60-65%. Apical septal wall mild hypokinesis. Diastolic parameters suggests a pseudonormalization pattern, consistent with elevated filling pressures. RV normal size and function. L atrium is severely dilated. No significant valvular heart disease and aortic root is normal size. 5. Hypothyroid, present on admission, chronic - Continue Levothyroxine 112 mcg daily - TSH 0.381, mildly low and consider increasing levothyroxine tomorrow 6. Chronic anemia, present on admission - Continue Ferrous sulfate 325 mg BID 7. Chronic kidney failure, present on admission, chronic - Unknown if BINU because last creatinine was 1.2, two years ago - Careful with nephrotoxic medications - labs again tomorrow 8. Hypertension, present on admission, chronic - continue Amlodipine 10mg daily, Losartan 50mg daily, Isosorbide mononitrate 30mg HS 9. Dyslipidemia, present on admission, chronic - continue Atorvastatin 80 mg daily 10. COPD, present on admission, chronic - DuoNebs Q6hrs; albuterol inhalers Q4hrs PRN 11. Depression, present on admission, chronic - Continue Citalopram 40mg daily 12. CAD with history of [place], present on admission - Note that QTc was 555 on admission 13. Allergies, present on admission, chronic - continued Zafirlukast 14. Acute on chronic pain, present on admission - continued home tramadol PRN - consider another ketorolac injection (patient states worked well in the ED) - osteopathic manipulative treatment PRN - Acetaminophen as needed for mild pain/fever/headache - Bowel regimen as needed & continued home dose of docusate - Antiemetic as needed Patient admitted under inpatient status with expected length of stay > 2 midnights for severity of present symptoms, complexities of treatment plan and risk for adverse events CODE STATUS: DNR/DNI confirmed with patient 07/30/16 VTE Prophylaxis: Other (on warfarin) VTE Mechanical Devices: Intermittant Pneumatic CD Resuscitation Status: DNR/DNI:Do Not Resuscitate/Intubate Time spent 30 minutes Attending Statement I have seen and evaluated patient at bedside in addition to directly supervising care provided by resident physician. I agree with above documentation. Luz Stockton DO Aug 01, 2016 14:56 Valdo Lee DO Aug 02, 2016 08:41
--- NOTE | 2016-08-01 18:41 | ST BAR ---
[address] [address] SPEECH BARIUM SWALLOW STUDY PATIENT: DANITZA PUTNAM : 1935 MR#: [id number] ADMIT: 07/30/2016 JOB ID: [id number] DATE OF SERVICE: 08/01/2016 THERAPIST: Mary Duarte MA CCC-CENTRIFUGAL SCREEN TENDER. REFERRING PHYSICIAN: Dr. Gold. PRIMARY CARE PHYSICIAN: Hill Lucio MD. [id number] G CODES AND MODIFIERS: 8996 CI, 8997 CI, 8998 CI. PRIMARY DIAGNOSIS: Pneumonia. TREATMENT DIAGNOSIS: Dysphagia. VISITS FROM START OF CARE: One. Further treatment is recommended to continue at 1-2 times a week while the patient is admitted at [facility]. One to four followup visits are recommended on an outpatient basis once the patient is discharged from [facility]. SHORT-TERM GOALS: 1. The patient will demonstrate mastery of compensatory strategy of swallow/cough/swallow in order to clear laryngeal vestibule of residue. 2. The patient will independently complete a laryngeal strengthening program to increase the strength and timing of her swallowing mechanism. LONG-TERM GOAL: Least restrictive diet at time of discharge. CURRENT RELEVANT HISTORY: This is a very pleasant, 80-year-old female with a past medical history significant for hypertension, , CHF, RI, AFib, chronic anemia, asthma, and renal cancer, status post right nephrectomy, who presents with bilateral radiating pain, pneumonia, and AFib with RVR. The patient was evaluated by Speech Therapy at bedside and there was concern for silent aspiration at the time of that evaluation. Chest x-ray shows right lung base consolidation and has been labeled as acute community-acquired pneumonia. The current study is being completed today to fully assess the swallowing mechanism and determine if silent aspiration is contributing to this patient's medical problems at this time. MEDICAL NECESSITY: Aspiration risk. CURRENT LEVEL OF FUNCTION: Independent. 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 PREVIOUS TREATMENT: None. RELEVANT HOSPITALIZATIONS: None. BASELINE TEST MEASURES: The patient stood for the modified barium swallow study and was viewed laterally. P.o. trials of barium in the following consistencies were given: Thin liquid, nectar thick liquid, puree, dysphagia mechanical, mechanical soft, general, and a barium tablet. Oral [facility] evaluation indicated a question of pharyngitis with red spots on the soft palate and posterior pharyngeal wall. Palatal elevation was symmetrical. All other structures were within functional limits for evaluation. ORAL PHASE: Labial seal was complete. Mastication was complete. Bolus prep and AP transit was all within functional limits. PHARYNGEAL PHASE: Premature spillage of liquids occurred to the level of the vallecula. Swallow reflex was mildly delayed and laryngeal excursion appeared to be within functional limits. Laryngeal penetration occurred on both thin and nectar thick trials. Laryngeal penetration occurred to the level of the vocal folds and remained at the level of the vocal folds following each swallow. Silent tracheobronchial aspiration occurred after the swallow on one of the trials of thin liquids. Aspiration was silent and minimal in volume. ESOPHAGEAL PHASE: Cricopharyngeal relaxation appeared to be within functional limits. Barium tablet passed through the oral cavity, pharynx, and esophagus without difficulty. There was mild hesitation of the barium tablet in the distal esophagus. However, two followup swallows cleared that area. COMPENSATORY STRATEGIES: The patient demonstrated a cough that was adequate in clearing penetrated material from the laryngeal vestibule. EVALUATION RESULTS: This is a very pleasant, 80-year-old female who was seen for an initial inpatient modified barium swallow study due to concerns for silent aspiration. The patient is currently admitted for community-acquired pneumonia with a right lung base consolidation acute on chronic kidney disease, and AFib with RVR. The patient presented today with mild moderate pharyngeal dysphagia characterized by penetration on both thin and thickened liquid trials and silent tracheobronchial aspiration of some of that laryngeal residue after the swallow. Compensatory strategies appeared to be successful to decrease patient's aspiration risk and remove residue from the laryngeal vestibule. These strategies were discussed with the patient in great detail, and Speech Pathology will continue to follow this patient to discuss those recommendations and to complete laryngeal strengthening program. Of note, the patient demonstrated signs of GERD during and after the evaluation, and medical record review indicated that a barium esophagram completed in 2015 indicated severe spontaneous GERD, as well as a small hiatal hernia. The patient began coughing after eructation at the conclusion of the evaluation. Severe spontaneous GERD may explain her decreased sensation in the laryngeal vestibule as well as the possibility for aspiration, given that aspiration of liquid during the study was very minimal and cleared quickly with a cough. The results and the additional recommendation of possibility of a barium esophagram were discussed with the physician and the RN at the conclusion of the study. Thank you very much for this consult. REYNA
[2016-08-01] MEDS: Isosorbide Mononitrate 30 mg ER24 Tablet PO SCH (21:35)
[2016-08-02] VITALS (8 sets, daily range): BP systolic 109–121; BP diastolic 53–66; PULSE 68–126; RESP 16–18; O2SAT 91–95
--- NOTE | 2016-08-02 05:22 | NUR ---
Febrile: Pt febrile x1 during the night, Tylenol administered for back pain; effective for pain and fever. Pt HR low 100's, with bump into 140's with activity. Pt slept most of the night, pleasant and cooperative with care.
[2016-08-02 07:14] LABS: BASOPHILS % (AUTO) 0.3 % (0-3); EOSINOPHILS % (AUTO) 1.8 % (0-5); Mean Corpuscular Hemoglobin 27.3 pg (27.0-35.0); Mean Corpuscular Volume 90.6 fL (81-100); NEUTROPHILS % (AUTO) 78.7 % (40-74); Platelet Count 184 bil/L (150-400)
[2016-08-02] MEDS: Albuterol-Ipratropium 3 mL Inhalation Solution NEB SCH (07:27)
[2016-08-02 07:29] LABS: INR 2.46 ratio
[2016-08-02] MEDS: Fluticasone 0.05% 15 Spray/2 Gm 16 Gm Nasal Spray NASAL SCH ×2 (08:10→20:34)
[2016-08-02] MEDS: Fluticasone-Salmeterol 500-50 Inhaler INHALATION SCH ×2 (08:10→20:34)
[2016-08-02] MEDS: ZAFIRLUKAST 20 MG PO SCH ×2 (08:13→20:30)
[2016-08-02] MEDS ORDERED: Diltiazem CD 300 mg ER24 Capsule PO SCH ×2 (08:30)
[2016-08-02] MEDS: Piperacillin-Tazo 3.375 Gm Inj 3.375 GM in Dextrose 5% Minibag Plus 50 ML IV SCH ×2 (09:57→16:40)
--- NOTE | 2016-08-02 14:14 | PCM.PHAPRO ---
Progress Date of Service: Aug 02, 2016 INR = 2.46, hgb/hct = 9.3/30.9. Pt continues on warfarin therapy for afib. INR therapeutic today. Warfarin was held the past 2 days for rapid increase in INR. Will give warfarin 2.5 mg PO today. INR ordered. Pharmacy will continue to follow patient for warfarin therapy. Date -Jul 31-Aug 01-Aug 02-Jul INR 1.39 2.76 3.07 2.46 INR change 1.37 0.31 -0.61 Warf Dose 5MG HOLD HOLD 2.5 MG Phylicia Montes S PharmD Aug 02, 2016 14:13
--- NOTE | 2016-08-02 14:49 | NUR ---
NUTRITION ASSESSMENT: ASSESS: 80 YO female admitted for rapid a-fib and sciatica pain. Pt with modified barium swallow yesterday which showed some silent aspiration per MD. Pt with po intake of 25-50%. PMHx: A-fib with RVR, bilateral leg pain, SC, rectal cancer, HTN, sciatica, asthma, CHF, GERD, anemia. LABS: Reviewed. K+ 3.3, C 1.09, Glu 135, Alb 2.8. MEDS: Reviewed. GI: BM x 1 (08/01) CURRENT WT: 102.8 kg. Adj BW: 61.5 kg. DIET: Soft. PO 25-50% of meals. EST. NEEDS: 2598-4716 kcals (25-30 kcals/kg Adj BW), 75-95 g protein (1.2-1.5 g/kg Adj BW) NUTRITION DIAGNOSIS: 1.) Inadequate oral intake related to chewing / swallowing difficulties as evidenced by PO intake of 25-50% of meals x 3 days. NUTRITION INTERVENTION: 1.) Will add ensure supplements BID. 2.) Continue to advance diet as able per ST recommendations. MONITOR / EVAL: PO intake, labs, nutritional status. Follow per moderate nutritional risk guidelines.
--- NOTE | 2016-08-02 15:58 | PCM.PNMED ---
Subjective Date of Service Aug 02, 2016 Subjective Mayi Han is an 80-year-old with a past medical history significant for hypertension, sciatica, CHF, [place], atrial fibrillation, chronic anemia, asthma, and renal cancer s/p right nephrectomy who presented to the ED via EMS with bilateral buttocks pain (R>L) that radiated down her legs to her knees before community acquired pneumonia and atrial fibrillation with RVR. This morning, her cough is now productive of a clear sputum. She does not have chest pain, dyspnea, fever, chills, or issues with bowel or bladder function. Exam Vital Signs Vital Sign - Last Date Time Temp Pulse Resp B/P Pulse Ox O2 Delivery O2 Flow Rate FiO2 08/02/16 13:28 37.2 126 16 121/66 91 Room Air 07/31/16 05:04 2.00 Intake and Output 08/01/16 08/01/16 08/02/16 Cumulative From/Thru 15:00 23:00 07:00 07/30/16 04:36 - 08/02/16 04:37 Intake Total 825 ml 1500 ml 4895 ml Output Total 250 ml 1400 ml 3100 ml Balance 575 ml 100 ml 1795 ml Intake Oral 500 ml 1500 ml 4050 ml IV Total 325 ml 845 ml Output Urine Total 250 ml 1400 ml 3100 ml # Voids 3 # Bowel Movements 1 2 Exam General: Elderly female lying in bed and in no acute distress, well-developed, well-nourished, appropriately interactive HEENT: Normocephalic, atraumatic. External ears without defect. Pupils equal, round, and reactive to light. Anicteric sclerae, moist conjunctivae, and no lid lag. Mild blepharitis of the left eye. Oropharynx free of erythema and cobble stoning with moist mucosa. Neck: Palpable right submandibular mass 3-4 cm in length. Supple with full range of motion. No jugular venous distension. No bruits. No lymphadenopathy or thyromegaly. Cardiovascular: Irregularly irregular rhythm without murmurs, rubs, or gallops appreciated Pulmonary: Clear to auscultation bilaterally with no crackles, wheezes, or rhonchi. Normal respiratory effort with no use of accessory muscles. Abdomen: Bowel tones present. Soft, nontender, nondistended. No hepatosplenomegaly or masses appreciated. Extremities: No clubbing, cyanosis, or edema. Skin: Normal temperature, turgor, and texture; no rash, ulcers, or subcutaneous nodules appreciated. Neurological: Cranial nerves grossly intact. Normal muscle strength, tone, and bulk. Reflexes, coordination, and sensory function within normal limits. No known gait impairment. Psychiatric: Normal mood and affect. Alert and oriented to person, place, and time. IVs and Medications Medications Reviewed: Medications were reviewed in detail Lab and Diagnostics Result Diagram: 08/02/16 0700 08/02/16 0700 Microbiology Respiratory viral PCR negative. Blood culture 2 shows no growth after 24 hours. MRSA screen pending. Sputum culture pending. Strep pneumoniae and legionella urine antigens negative. . X-Rays, CTs and MRIs X-RAY CHEST ONE VIEW, PORTABLE IMPRESSION: 1. Mild right lung base atelectasis versus pneumonia. 2. Cardiomegaly. Dictated by: Rosenda Black M.D. on 07/30/2016 at 7:43 Approved by: Rosenda Black M.D. on 07/30/2016 at 7:44 CT LUMBAR SPINE WITHOUT CONTRAST IMPRESSION: 1. Multilevel degenerative disc and facet disease, which could be further assessed with MRI, if clinically indicated. 2. No fracture. 3. Bilateral lower lobe pneumonia. Dictated by: Rosenda Black M.D. on 07/30/2016 at 8:37 Approved by: Rosenda Black M.D. on 07/30/2016 at 8:39 . Assessment & Plan Patient is an 80 year-old female with a medical history that includes hypertension, sciatica, CHF, IL, atrial fibrillation, chronic anemia, asthma, and renal cancer s/p right nephrectomy who presented to the ED via EMS with bilateral buttocks pain (R>L) that radiated down her legs to her knees. 1. Community acquired pneumonia possible aspiration pneumonia, present on admission, acute - Seen on x-ray and CT - Is not septic - blood cultures, legionella, strep pneumo, viral PCR, MRSA pending - Ceftriaxone and azithromycin stopped and switched to Zosyn for aspiration pneumonia coverage on 08/01/16 - Barium swallow showed trace aspiration 2. Dysphagia, chronic, present on admission. Active - Patient reports difficultly swallowing solids and has a palpable submandibular neck mass - Prior modified barium swallow imaging showed severe spontaneous gastroesophageal reflux - US neck today and results pending 3. Atrial fibrillation with RVR, present on admission, just began warfarin for anticoagulation 2 days ago and subtherapeutic - newly diagnosed 07/27/16 in [place] - HR 130s when came in. - Diltiazem injections given for a total of 25mg. Started her on oral diltiazem 120mg daily with parameters for diltiazem 5mg injections. She reportedly was started on 240mg two days ago. Will monitor and discharge on appropriate dose. - Telemetry - Continue Clopidogrel 75 mg daily - warfarin per pharmacy - Consulted cardiology. Their time and recommendations are appreciated. - Increased diltiazem to 360 mg once daily in the morning. - Decreased nebulizer treatments to as needed rather than scheduled. 4. Heart failure with preserved ejection fraction, present on admission, chronic last echo: december/2013. LV size upper limits of normal. LV systolic function is normal. EF 60-65%. Apical septal wall mild hypokinesis. Diastolic parameters suggests a pseudonormalization pattern, consistent with elevated filling pressures. RV normal size and function. L atrium is severely dilated. No significant valvular heart disease and aortic root is normal size. 5. Hypothyroid, present on admission, chronic - Continue Levothyroxine 112 mcg daily - TSH 0.381, mildly low and consider decreasing levothyroxine 6. Chronic anemia, present on admission - Continue Ferrous sulfate 325 mg BID 7. Chronic kidney failure, present on admission, chronic - Unknown if BINU because last creatinine was 1.2, two years ago - Careful with nephrotoxic medications - labs again tomorrow 8. Hypertension, present on admission, chronic - continue Amlodipine 10mg daily, Losartan 50mg daily, Isosorbide mononitrate 30mg HS 9. Dyslipidemia, present on admission, chronic - continue Atorvastatin 80 mg daily 10. COPD, present on admission, chronic - DuoNebs Q6hrs PRN; albuterol inhalers Q4hrs PRN 11. Depression, present on admission, chronic - Continue Citalopram 40mg daily 12. CAD with history of [place], present on admission - Note that QTc was 555 on admission 13. Allergies, present on admission, chronic - continued Zafirlukast 14. Acute on chronic pain, present on admission - continued home tramadol PRN - consider another ketorolac injection (patient states worked well in the ED) - osteopathic manipulative treatment PRN - Acetaminophen as needed for mild pain/fever/headache - Bowel regimen as needed & continued home dose of docusate - Antiemetic as needed Patient admitted under inpatient status with expected length of stay > 2 midnights for severity of present symptoms, complexities of treatment plan and risk for adverse events CODE STATUS: DNR/DNI confirmed with patient 07/30/16 VTE Prophylaxis: Other (on warfarin) VTE Mechanical Devices: Intermittant Pneumatic CD Resuscitation Status: DNR/DNI:Do Not Resuscitate/Intubate Time spent 30 minutes Attending Statement I have seen and evaluated patient at bedside in addition to directly supervising care provided by resident physician. I agree with above documentation. Luz Stockton DO Aug 02, 2016 15:58 Valdo Lee DO Aug 03, 2016 08:25
[2016-08-02] MEDS ORDERED: Potassium Chloride 20 mEq SR Tablet PO ONE (19:50)
[2016-08-02] MEDS: Isosorbide Mononitrate 30 mg ER24 Tablet PO SCH (20:35)
[2016-08-03] VITALS (11 sets, daily range): BP systolic 106–124; BP diastolic 56–75; PULSE 96–127; RESP 16–22; O2SAT 91–95
[2016-08-03] MEDS: Piperacillin-Tazo 3.375 Gm Inj 3.375 GM in Dextrose 5% Minibag Plus 50 ML IV SCH ×3 (00:36→21:37)
[2016-08-03] MEDS: Albuterol-Ipratropium 3 mL Inhalation Solution NEB PRN (06:13)
--- NOTE | 2016-08-03 06:30 | NUR ---
pain/sob: Pt c/o generalized/back pain at HS, medication administered; effective. Pt requested NEB treatment this am for SOB; effective. Pt slept off/on throughout the night, pleasant and cooperative with care.
[2016-08-03 07:13] LABS: BASOPHILS % (AUTO) 0.6 % (0-3); EOSINOPHILS % (AUTO) 3.6 % (0-5); MONOCYTES % (AUTO) 10.3 % (4-12); Mean Corpuscular Hemoglobin 27.3 pg (27.0-35.0); Mean Corpuscular Volume 90.1 fL (81-100); NEUTROPHILS % (AUTO) 69.9 % (40-74); Platelet Count 226 bil/L (150-400)
[2016-08-03 07:18] LABS: INR 2.09 ratio
[2016-08-03] MEDS: Fluticasone-Salmeterol 500-50 Inhaler INHALATION SCH ×2 (07:55→21:37)
[2016-08-03] MEDS: Fluticasone 0.05% 15 Spray/2 Gm 16 Gm Nasal Spray NASAL SCH ×2 (07:55→21:37)
[2016-08-03] MEDS: ZAFIRLUKAST 20 MG PO SCH ×2 (08:17→20:30)
--- NOTE | 2016-08-03 10:02 | DRSVH ---
PROCEDURE: US SOFT TISSUE OF HEAD OR NECK SONOGRAM INDICATIONS: palpable right submandibular mass, dysphagia TECHNIQUE: Real-time scanning was performed of the neck region of interest, with image documentation. COMPARISON: None. FINDINGS: Solid, heterogeneous and ill-defined soft tissue mass present within the right neck corresp onding to the palpable abnormality measuring roughly 8 mm. IMPRESSION: Nonspecific soft tissue heterogeneous solid mass with mild vascularity. Findings are non specific and neoplasm cannot be excluded. Recommend clinical correlation and if indicated sonographi fryo directed fine needle aspiration could be performed for pathologic diagnosis. Dictated by: Quincy CALLOWAY Interpreted: Linda Seth MD on 08/03/2016 at 10:01 Transcribed by: MARC on 08/03/2016 at 10:02 Approved by: Linda Seth M.D. on 08/03/2016 at 11:49
--- NOTE | 2016-08-03 11:00 | NUR ---
HR Call recd from tele re pts HR in 150s. RN rounded on pt, pt was in the bathroom, ambulating back to the chair. Pt did c/o feeling winded and a GRACE after sitting down. RN reported findings to Dr Stockton. Pt is SBA d/t tachycardia. steady gait observed. Now sitting in chair waiting for lunch to arrive, call light in reach. Will continue with frequent rounding.
--- NOTE | 2016-08-03 15:26 | PCM.PNMED ---
Subjective Date of Service Aug 03, 2016 Remedios Han is an 80-year-old with a past medical history significant for hypertension, sciatica, CHF, NV, atrial fibrillation, chronic anemia, asthma, and renal cancer s/p right nephrectomy who presented to the ED via EMS with bilateral buttocks pain (R>L) that radiated down her legs to her knees before community acquired pneumonia and atrial fibrillation with RVR. Overnight: Telemetry showed continued atrial fibrillation with her heart rate in the 120s and up to the 140s with activity. Today, she reports that her cough has resolved. She does not have fever, chills , chest pain, or dyspnea. Exam Vital Signs Vital Sign - Last Date Time Temp Pulse Resp B/P Pulse Ox O2 Delivery O2 Flow Rate FiO2 08/03/16 12:46 125 08/03/16 10:00 37.6 18 124/64 93 Room Air 07/31/16 05:04 2.00 Intake and Output 08/02/16 08/02/16 08/03/16 Cumulative From/Thru 15:00 23:00 07:00 07/30/16 04:36 - 08/03/16 07:00 Intake Total 560 ml 1000 ml 350 ml 6805 ml Output Total 525 ml 850 ml 800 ml 5275 ml Balance 35 ml 150 ml -450 ml 1530 ml Intake Oral 500 ml 1000 ml 350 ml 5900 ml IV Total 60 ml 905 ml Output Urine Total 525 ml 850 ml 800 ml 5275 ml # Voids 3 # Bowel Movements 2 Exam General: Elderly female sitting in bedside chair and in no acute distress, well- developed, well-nourished, appropriately interactive HEENT: Normocephalic, atraumatic. External ears without defect. Pupils equal, round, and reactive to light. Anicteric sclerae, moist conjunctivae, and no lid lag. Mild blepharitis of the left eye. Oropharynx free of erythema and cobble stoning with moist mucosa. Neck: Palpable right submandibular mass 3-4 cm in length. Supple with full range of motion. No jugular venous distension. No bruits. No lymphadenopathy or thyromegaly. Cardiovascular: Irregularly irregular rhythm without murmurs, rubs, or gallops appreciated Pulmonary: Clear to auscultation bilaterally with no crackles, wheezes, or rhonchi. Normal respiratory effort with no use of accessory muscles. Abdomen: Bowel tones present. Soft, nontender, nondistended. No hepatosplenomegaly or masses appreciated. Extremities: No clubbing, cyanosis, or edema. Skin: Normal temperature, turgor, and texture; no rash, ulcers, or subcutaneous nodules appreciated. Neurological: Cranial nerves grossly intact. Normal muscle strength, tone, and bulk Psychiatric: Normal mood and affect. Alert and oriented to person, place, and time. IVs and Medications Medications Reviewed: Medications were reviewed in detail Lab and Diagnostics Result Diagram: 08/03/1664408/03/16644 Microbiology Respiratory viral PCR negative. Blood culture 2 shows no growth after 24 hours. MRSA screen negative. Sputum culture light normal krista. Strep pneumoniae and legionella urine antigens negative. . X-Rays, CTs and MRIs X-RAY CHEST ONE VIEW, PORTABLE IMPRESSION: 1. Mild right lung base atelectasis versus pneumonia. 2. Cardiomegaly. Dictated by: Rosenda Black M.D. on 07/30/2016 at 7:43 Approved by: Rosenda Black M.D. on 07/30/2016 at 7:44 CT LUMBAR SPINE WITHOUT CONTRAST IMPRESSION: 1. Multilevel degenerative disc and facet disease, which could be further assessed with MRI, if clinically indicated. 2. No fracture. 3. Bilateral lower lobe pneumonia. Dictated by: Rosenda Black M.D. on 07/30/2016 at 8:37 Approved by: Rosenda Black M.D. on 07/30/2016 at 8:39 PROCEDURE: US SOFT TISSUE OF HEAD OR NECK SONOGRAM IMPRESSION: Nonspecific soft tissue heterogeneous solid mass with mild vascularity. Findings are nonspecific and neoplasm cannot be excluded. Recommend clinical correlation and if indicated sonographically directed fine needle aspiration could be performed for pathologic diagnosis. Approved by: Linda Seth M.D. on 08/03/2016 at 11:49 Assessment & Plan Patient is an 80 year-old female with a medical history that includes hypertension, sciatica, CHF, NV, atrial fibrillation, chronic anemia, asthma, and renal cancer s/p right nephrectomy who presented to the ED via EMS with bilateral buttocks pain (R>L) that radiated down her legs to her knees. 1. Community acquired pneumonia possible aspiration pneumonia, present on admission, acute - Seen on x-ray and CT - Is not septic - blood cultures, legionella, strep pneumo, viral PCR, MRSA pending - Ceftriaxone and azithromycin stopped and switched to Zosyn for aspiration pneumonia coverage on 08/01/16 - Barium swallow showed trace aspiration 2. Dysphagia, chronic, present on admission. Active - Patient reports difficultly swallowing solids and has a palpable submandibular neck mass - Prior modified barium swallow imaging showed severe spontaneous gastroesophageal reflux - US neck showed heterogeneous solid mass with mild vascularity - Recommend follow up as an outpatient with fine needle biopsy of the mass 3. Atrial fibrillation with RVR, present on admission, just began warfarin for anticoagulation 2 days prior to admission - newly diagnosed 07/27/16 in [place] - HR 130s when came in. - Diltiazem injections given for a total of 25mg. Started her on oral diltiazem 120mg daily with parameters for diltiazem 5mg injections. She reportedly was started on 240mg two days ago. Will monitor and discharge on appropriate dose. - Telemetry - Continue Clopidogrel 75 mg daily - warfarin per pharmacy - Consulted cardiology. Their time and recommendations are appreciated. - Increased diltiazem extended release to 360 mg once daily in the morning. - Decreased nebulizer treatments to as needed rather than scheduled. - Added metoprolol tartrate 12.5 mg twice per day 4. Heart failure with preserved ejection fraction, present on admission, chronic last echo: december/2013. LV size upper limits of normal. LV systolic function is normal. EF 60-65%. Apical septal wall mild hypokinesis. Diastolic parameters suggests a pseudonormalization pattern, consistent with elevated filling pressures. RV normal size and function. L atrium is severely dilated. No significant valvular heart disease and aortic root is normal size. 5. Hypothyroid, present on admission, chronic - Continue Levothyroxine 100 mcg daily - TSH 0.381, mildly low but free T4 within normal limits 6. Chronic anemia, present on admission - Continue Ferrous sulfate 325 mg BID 7. Chronic kidney failure, present on admission, chronic - Unknown if BINU because last creatinine was 1.2, two years ago - Careful with nephrotoxic medications - labs again tomorrow 8. Hypertension, present on admission, chronic - continue Amlodipine 10mg daily, Losartan 50mg daily, Isosorbide mononitrate 30mg HS 9. Dyslipidemia, present on admission, chronic - continue Atorvastatin 80 mg daily 10. COPD, present on admission, chronic - DuoNebs Q6hrs PRN; albuterol inhalers Q4hrs PRN 11. Depression, present on admission, chronic - Continue Citalopram 40mg daily 12. CAD with history of NV, present on admission - Note that QTc was 555 on admission 13. Allergies, present on admission, chronic - continued Zafirlukast 14. Acute on chronic pain, present on admission - continued home tramadol PRN - consider another ketorolac injection (patient states worked well in the ED) - osteopathic manipulative treatment PRN - Acetaminophen as needed for mild pain/fever/headache - Bowel regimen as needed & continued home dose of docusate - Antiemetic as needed Patient admitted under inpatient status with expected length of stay > 2 midnights for severity of present symptoms, complexities of treatment plan and risk for adverse events CODE STATUS: DNR/DNI confirmed with patient 07/30/16 VTE Prophylaxis: Other (on warfarin) VTE Mechanical Devices: Intermittant Pneumatic CD Resuscitation Status: DNR/DNI:Do Not Resuscitate/Intubate Time spent 30 minutes Attending Statement I have seen and evaluated patient at bedside in addition to directly supervising care provided by resident physician. I agree with above documentation. Luz Stockton DO Aug 03, 2016 15:26 Valdo Lee DO Aug 04, 2016 07:57
[2016-08-03 20:53] LABS: APPEARANCE,URINE HAZY (CLEAR,HAZY); COLOR,URINE YELLOW (YELLOW); OCCULT BLOOD,URINE SMALL (NEGATIVE); UROBILINOGEN,URINE NORMAL (NORMAL)
[2016-08-03] MEDS: Isosorbide Mononitrate 30 mg ER24 Tablet PO SCH (21:38)
[2016-08-04] VITALS (12 sets, daily range): BP systolic 101–137; BP diastolic 68–79; PULSE 89–142; RESP 18–27; O2SAT 94–99
--- NOTE | 2016-08-04 06:05 | NUR ---
HR/fever Pt's HR afib in 120s-130s in the beginning of shift while sitting up one a chair. noted SBO with little activity. Dr. Yan was notified and ordered to given HS Metoprolol now and monitor HR. HR down to 100s-120s after Metoprolol Pt had a temp of 38.3; went down to 37.5 after tylenol administration.
[2016-08-04 06:40] LABS: BASOPHILS % (AUTO) 0.6 % (0-3); EOSINOPHILS % (AUTO) 2.7 % (0-5); MONOCYTES % (AUTO) 9.7 % (4-12); Mean Corpuscular Hemoglobin 27.1 pg (27.0-35.0); Mean Corpuscular Volume 89.7 fL (81-100); NEUTROPHILS % (AUTO) 72.5 % (40-74); Platelet Count 256 bil/L (150-400)
[2016-08-04 07:03] LABS: INR 2.56 ratio
[2016-08-04] MEDS: Fluticasone 0.05% 15 Spray/2 Gm 16 Gm Nasal Spray NASAL SCH ×2 (07:52→22:02)
[2016-08-04] MEDS: Fluticasone-Salmeterol 500-50 Inhaler INHALATION SCH ×2 (07:52→21:59)
[2016-08-04] MEDS: Piperacillin-Tazo 3.375 Gm Inj 3.375 GM in Dextrose 5% Minibag Plus 50 ML IV SCH ×2 (07:53→22:01)
[2016-08-04] MEDS: Diltiazem CD 180 mg ER24 Capsule PO SCH (07:56)
[2016-08-04] MEDS: ZAFIRLUKAST 20 MG PO SCH ×2 (07:58→20:30)
--- NOTE | 2016-08-04 09:14 | PCM.PHAPRO ---
Progress Date of Service: Aug 04, 2016 Pt continues on warfarin therapy for rapid afib. Goal INR 2-3. 6-Jul 7-Jul 8-Aug 04-Jul 3.07 2.46 2.09 2.56 0.31 -0.61 -0.37 0.47 HOLD 2.5 MG 5 MG 3 Will give a ot dose tonight of 3 mg to keep patient in goal range Pharmacy will continue to follow daily. Thank you for consulting pharmacy in the care of this patient. Melida Truong PharmD Aug 04, 2016 09:14
[2016-08-04] MEDS: Albuterol-Ipratropium 3 mL Inhalation Solution NEB PRN (09:25)
[2016-08-04] MEDS ORDERED: Amiodarone 150 mg/100 mL D5W 150 MG in IV Premix 1 EACH IV ONE ×2 (13:20→16:40)
--- NOTE | 2016-08-04 15:36 | PCM.PNCARD ---
Subjective Date of service Aug 04, 2016 Chief Complaint Atrial fibrillation with RVR History of Present Illness Mrs Han is an 80 yr old with hx of Nontransmural ME / 2014, CHF, HTN, CKD ( stageIII), hypothyroidism, anemia, sleep apnea and more recently atrial fibrillation. Past medical history is also significant for asthma and renal cell carcinoma. Patient apparently volunteers at [facility] and went for a blood pressure check and was noted to have an elevated heart rate. There are centered to the emergency room where she was subsequently diagnosed with atrial fibrillation. She was anticoagulated with Coumadin and started on diltiazem for rate control. Patient woke the morning of July 30 feeling ill with significant nausea and vomited while in bed. She went emergency room was found to be in rapid atrial fibrillation. Chest x-ray admission suggested possible pneumonia or atelectasis in the right lower lung base. Calcitonin was elevated mildly elevated white count. Patient treated with antibiotics for infection with improving labs. Dr. Gilmore initially consulted on the patient and adjusted diltiazem upwards to improve rate control. She does state she has been feeling a little more depressed and a lower energy state/fatigue over the last month or 2. She has had occasional bouts of feeling suddenly wobbly or unstable. She denies specific palpitations. She has not been having chest pains. Since her weight has been relatively stable and she is not noticed any significant edema. She had not noticed any significant cold symptoms, sore throat and nasal congestion cough over the last week or two. He does have a history of asthma that bothers her off and on. She admits she has had some dyspnea when laying on her left side that she generally sleeps flat bed. She uses a CPAP for many years claims she is very compliant. Subjective: Review of systems is negative other than listed above. Exam Vital Signs Vital Sign - Last Date Time Temp Pulse Resp B/P Pulse Ox O2 Delivery O2 Flow Rate FiO2 08/04/16 12:13 36.9 109 21 126/68 95 Room Air 07/31/16 05:04 2.00 Intake and Output 08/03/16 08/03/16 08/04/16 Cumulative From/Thru 15:00 23:00 07:00 07/30/16 04:36 - 08/04/16 06:22 Intake Total 308 ml 800 ml 7913 ml Output Total 620 ml 5895 ml Balance 308 ml 180 ml 2018 ml Intake Oral 800 ml 6700 ml IV Total 308 ml 1213 ml Output Urine Total 620 ml 5895 ml # Voids 3 # Bowel Movements 0 2 Additional Information: # GEN-no apparent distress sitting up in bed # HEENT- minor postnasal drip, pharynx moist and otherwise benign, eyes clear and pearly # NECK-supple without adenopathy or significant thyromegaly. #CHEST-get it slight wheeze, mild basilar crackles. #CV-irregularly irregular heart rate, no significant murmur. No carotid bruits , no abdominal bruits. No peripheral edema. JVP difficult to assess secondary to body habitus. #GI-soft nontender #INT-nonfocal, benign #NEURO- nonfocal, alert and oriented 4. Lab and Diagnostics Result Diagram: 08/04/1661408/04/1615 X-Rays, CTs and MRIs Echocardiogram 08/04/2016 A cardiogram 2014 he had 6065%, no focal wall motion abnormalities. Stage II diastolic dysfunction. No significant valvular disease. Severe left atrial enlargement. Apical hypokinesis previously noted has resolved. Cardiac cath 2013 50-60% first OM, LAD was tortuous. Possible distal infarct. Diagonal with 50% plaquing RCA- ectatic disease proximally 30-40%. Diffuse mid vessel disease no greater than moderate. 12-lead ECG Laboratory overnight patient with persistent elevated rates in the @120. Assessment & Plan Assessment Pt was recently diagnosed atrial fibrillation and started on warfarin for anticoagulation and diltiazem for rate control which is thus far suboptimal. Past medical history significant for hypertension, nontransmural ME, CHF, hypothyroidism, anemia, chronic kidney disease. Rates over night have generally been in the 110-120 b/m range. She is still feeling fatigued. Currently denies any significant orthopnea or significant chest pain. #Atrial fibrillation with RVR-diltiazem is not controlling her rate to goal ideally should be below 100 bpm. Need to continue with anticoagulation and diltiazem. Amiodarone was initiated and metoprolol was uptitrated. #Hypertension- continue with increased dose metoprolol and diltiazem. #CAD with history of non-STEMI- troponins have been negative, echocardiogram not reviewed for new wall motion abnormalities prior to this dictation. Imdur is stopped #Pneumonia being treated per service Please refer to Dr Quarles's note for plan specifics . Problems: VTE Prophylaxis: Other (on warfarin) VTE Mechanical Devices: Intermittant Pneumatic CD Resuscitation Status: DNR/DNI:Do Not Resuscitate/Intubate Patel Olmstead PA-C Aug 04, 2016 15:36
--- NOTE | 2016-08-04 16:19 | PCM.PNMED ---
Subjective Date of Service Aug 04, 2016 Remedios Han is an 80-year-old with a past medical history significant for hypertension, sciatica, CHF, CO, atrial fibrillation, chronic anemia, asthma, and renal cancer s/p right nephrectomy who presented to the ED via EMS with bilateral buttocks pain (R>L) that radiated down her legs to her knees before community acquired pneumonia and atrial fibrillation with RVR. This morning, Ms. Han reports that she feels worse than yesterday. Her cough has returned and she has chills. She had dark stools this morning. She does not have chest pain or abdominal pain. She does not have a history of GI bleeds and she has had routine colonoscopies. Exam Vital Signs Vital Sign - Last Date Time Temp Pulse Resp B/P Pulse Ox O2 Delivery O2 Flow Rate FiO2 08/04/16 12:13 36.9 109 21 126/68 95 Room Air 07/31/16 05:04 2.00 Intake and Output 08/03/16 08/03/16 08/04/16 Cumulative From/Thru 15:00 23:00 07:00 07/30/16 04:36 - 08/04/16 06:22 Intake Total 308 ml 800 ml 7913 ml Output Total 620 ml 5895 ml Balance 308 ml 180 ml 2018 ml Intake Oral 800 ml 6700 ml IV Total 308 ml 1213 ml Output Urine Total 620 ml 5895 ml # Voids 3 # Bowel Movements 0 2 Exam General: Elderly female sitting in bedside chair and in no acute distress, well- developed, well-nourished, appropriately interactive HEENT: Normocephalic, atraumatic. External ears without defect. Pupils equal, round, and reactive to light. Anicteric sclerae, moist conjunctivae, and no lid lag. Mild blepharitis of the left eye. Oropharynx free of erythema and cobble stoning with moist mucosa. Neck: Palpable right submandibular mass 3-4 cm in length. Supple with full range of motion. No lymphadenopathy or thyromegaly. Cardiovascular: Irregularly irregular rhythm without murmurs, rubs, or gallops appreciated Pulmonary: Clear to auscultation bilaterally with no crackles, wheezes, or rhonchi. Normal respiratory effort with no use of accessory muscles. Abdomen: Bowel tones present. Soft, nontender, nondistended. No hepatosplenomegaly or masses appreciated. Extremities: No clubbing, cyanosis, or edema. Skin: Normal temperature, turgor, and texture; no rash, ulcers, or subcutaneous nodules appreciated. Neurological: Cranial nerves grossly intact. Normal muscle strength, tone, and bulk Psychiatric: Normal mood and affect. Alert and oriented to person, place, and time. IVs and Medications Medications Reviewed: Medications were reviewed in detail Lab and Diagnostics Result Diagram: 08/04/1661408/04/16614 Microbiology Respiratory viral PCR negative. Blood culture 2 shows no growth after 24 hours. MRSA screen negative. Sputum culture light normal krista. Strep pneumoniae and legionella urine antigens negative. . X-Rays, CTs and MRIs X-RAY CHEST ONE VIEW, PORTABLE IMPRESSION: 1. Mild right lung base atelectasis versus pneumonia. 2. Cardiomegaly. Dictated by: Rosenda Black M.D. on 07/30/2016 at 7:43 Approved by: Rosenda Black M.D. on 07/30/2016 at 7:44 CT LUMBAR SPINE WITHOUT CONTRAST IMPRESSION: 1. Multilevel degenerative disc and facet disease, which could be further assessed with MRI, if clinically indicated. 2. No fracture. 3. Bilateral lower lobe pneumonia. Dictated by: Rosenda Black M.D. on 07/30/2016 at 8:37 Approved by: Rosenda Black M.D. on 07/30/2016 at 8:39 PROCEDURE: US SOFT TISSUE OF HEAD OR NECK SONOGRAM IMPRESSION: Nonspecific soft tissue heterogeneous solid mass with mild vascularity. Findings are nonspecific and neoplasm cannot be excluded. Recommend clinical correlation and if indicated sonographically directed fine needle aspiration could be performed for pathologic diagnosis. Approved by: Linda Seth M.D. on 08/03/2016 at 11:49 Assessment & Plan Patient is an 80 year-old female with a medical history that includes hypertension, sciatica, CHF, CO, atrial fibrillation, chronic anemia, asthma, and renal cancer s/p right nephrectomy who presented to the ED via EMS with bilateral buttocks pain (R>L) that radiated down her legs to her knees. 1. Community acquired pneumonia possible aspiration pneumonia, present on admission, acute - Seen on x-ray and CT - Is not septic - blood cultures, legionella, strep pneumo, viral PCR, MRSA pending - Ceftriaxone and azithromycin stopped and switched to Zosyn for aspiration pneumonia coverage on 08/01/16 - Barium swallow showed trace aspiration 2. Dysphagia, chronic, present on admission. Active - Patient reports difficultly swallowing solids and has a palpable submandibular neck mass - Prior modified barium swallow imaging showed severe spontaneous gastroesophageal reflux - US neck showed heterogeneous solid mass with mild vascularity - Recommend follow up as an outpatient with fine needle biopsy of the mass 3. Atrial fibrillation with RVR, present on admission, just began warfarin for anticoagulation 2 days prior to admission - newly diagnosed 07/27/16 in [place] - HR 130s when came in. - Diltiazem injections given for a total of 25mg. Started her on oral diltiazem 120mg daily with parameters for diltiazem 5mg injections. She reportedly was started on 240mg two days prior to admission. Will monitor and discharge on appropriate dose. - Telemetry - Continue Clopidogrel 75 mg daily - warfarin per pharmacy - Consulted cardiology. Their time and recommendations are appreciated. - Increased diltiazem extended release to 360 mg once daily in the morning. - Decreased nebulizer treatments to as needed rather than scheduled. - Added metoprolol tartrate 12.5 mg twice per day - Consulted cardiology again for recommendations. Their time and recommendations are appreciated. - Echocardiogram repeated today 4. Heart failure with preserved ejection fraction, present on admission, chronic last echo: december/2013. LV size upper limits of normal. LV systolic function is normal. EF 60-65%. Apical septal wall mild hypokinesis. Diastolic parameters suggests a pseudonormalization pattern, consistent with elevated filling pressures. RV normal size and function. L atrium is severely dilated. No significant valvular heart disease and aortic root is normal size. -Echocardiogram ordered for today 5. Hypothyroid, present on admission, chronic - Continue Levothyroxine 100 mcg daily - TSH 0.381, mildly low but free T4 within normal limits 6. Chronic anemia, present on admission - Continue Ferrous sulfate 325 mg BID 7. Chronic kidney failure, present on admission, chronic - Unknown if BINU because last creatinine was 1.2, two years ago - Careful with nephrotoxic medications - labs again tomorrow 8. Hypertension, present on admission, chronic - continue Losartan 50mg daily, Isosorbide mononitrate 30mg HS -Held morning furosemide and losartan as patient's blood pressure was 107 systolic -Resume losartan and furosemide if blood pressure stable tomorrow morning 9. Dyslipidemia, present on admission, chronic - continue Atorvastatin 80 mg daily 10. COPD, present on admission, chronic - DuoNebs Q6hrs PRN; albuterol inhalers Q4hrs PRN 11. Depression, present on admission, chronic - Continue Citalopram 40mg daily 12. CAD with history of CO, present on admission - Note that QTc was 555 on admission 13. Allergies, present on admission, chronic - continued Zafirlukast 14. Acute on chronic pain, present on admission - continued home tramadol PRN - consider another ketorolac injection (patient states worked well in the ED) - osteopathic manipulative treatment PRN - Acetaminophen as needed for mild pain/fever/headache - Bowel regimen as needed & continued home dose of docusate - Antiemetic as needed Patient admitted under inpatient status with expected length of stay > 2 midnights for severity of present symptoms, complexities of treatment plan and risk for adverse events CODE STATUS: DNR/DNI confirmed with patient 07/30/16 VTE Prophylaxis: Other (on warfarin) VTE Mechanical Devices: Intermittant Pneumatic CD Resuscitation Status: DNR/DNI:Do Not Resuscitate/Intubate Time spent 25 minutes Attending Statement I have seen and evaluated patient at bedside in addition to directly supervising care provided by resident physician. I agree with above documentation. Based on recommendation of cardiology regarding her persistent tachycardia refractory to intial medication intervention, pt was initiated on Amiodarone requiring transfer to higher level of care. Luz Stockton DO Aug 04, 2016 16:19 Valdo Lee DO Aug 05, 2016 08:02
[2016-08-04] MEDS ORDERED: Amiodarone 360 mg/200 mL D5W 360 MG, Filter, Taxol 14256-28 1 EACH in IV Premix 1 EACH IV SCH (16:45)
--- NOTE | 2016-08-04 17:19 | DRSVH ---
[facility] [address] [place] [address] Echocardiogram Report Name: DANITZA PUTNAM Date: 08/04/2016 Height: 61 in Hospital Exam Location: [facility] Weight: 225 lb Gender: Female BSA: 2.0 m2 : 1935 Age: 80 yrs BP: 105/71 mmHg Reason For Study: TACHYCARDIA Ordering Physician: HOSPITALIST NAELerformed By: Ye Varela Referring Physician: Gissel VICTOR Interpretation Summary The left ventricle is normal in size. There is normal left ventricular wall thickness. The ejection fraction is estimated to be 35-40%. There are no focal wall motion abnormalities. The right ventricle is normal in size and function. There is mild mitral annular calcification. There is mild mitral regurgitation. The aortic valve is normal in structure and function. The left atrium is severely dilated. The right ventricular systolic pressure is estimated at 34 mmHg assuming a right atrial pressure of 3 mm Hg. There is no pericardial effusion. Compared to the previous study, the patient is now in atrial fibrillation and LV systolic function is worse. Procedure: A two-dimensional transthoracic echocardiogram with color flow and Doppler was performed. The study quality was technically adequate. Comparison is made with the echocardiogram of 10/15/14. A contrast injection of Definity was performed to improve assessment of LV function. The patient was in atrial fibrillation with rapid ventricular response during the exam with a heart rate exceeding 100 bpm. The patient had a heart rate of 100-135 beats per minute. Left Ventricle: The left ventricle is normal in size. There is normal left ventricular wall thickness. The ejection fraction is estimated to be 35-40%. There are no focal wall motion abnormalities. Right Ventricle: The right ventricle is normal in size and function. Atria: The left atrium is severely dilated. The right atrium is mildly dilated. The interatrial septum is intact with no evidence for an atrial septal defect. Mitral Valve: The mitral valve is normal in structure and function. There is mild mitral annular calcification. There is mild mitral regurgitation. Aortic Valve: The aortic valve is normal in structure and function. The aortic valve is trileaflet. The aortic valve opens well. No aortic regurgitation is present. Tricuspid Valve: The tricuspid valve is normal in structure and function. There is mild tricuspid regurgitation. The right ventricular systolic pressure is estimated at 34 mmHg assuming a right atrial pressure of 3 mm Hg. Pulmonic Valve: The pulmonic valve is normal in structure and function. There is trace pulmonic regurgitation. Great Vessels: The aortic root is normal size. The dimensions of the ascending aorta are normal. The pulmonary artery is normal size. The IVC is of normal diameter and collapses greater than 50% with a sniff. This suggests a low right atrial pressure of 3 mm Hg. Pericardium/ Pleura There is no pericardial effusion. There is no pleural effusion. MMode/2D Measurements & Calculations LVIDd: 5.4 cm LA dimension: 4.8 cm RA long axis: 5.9 cm AoV Opening LVIDs: 3.2 cm FS: 41.3 % LA A2 area: 31.3 cm RA area: 23.3 cm Ao root diam EPSS: 0.29 cm LA A4 area: 29.6 cm RA vol: 77.9 ml IVSd: 0.93 cm LA length (vol): 6.6 cm RA : 39.2 ml/m2 Aortic Jxn LVPWd: 0.90 cmLA vol: 119.7 ml asc Aorta Diam LA vol index: 60.3 ml/m IVC diam: 2.1 cm EDV(MOD-sp2) LV talamantes. diameter/BSA LV sys. diameter/BSA RVD1 (basal) (cm/m^2): 2.7 (cm/m^2): 1.6 : 3.8 cm RVD2 (mid) : 3.5 cm Doppler Measurements & Calculations Ao V2 max MV E max deon MV E/A: 97.0 TR max deon : 154.3 cm/sec : 125.6 cm/sec Med Peak E' Deon : 277.3 cm/sec Ao max PG MV A max deon TR max PG : 9.6 mmHg : 1.3 cm/sec E/E' med: 15.8 : 30.8 mmHg Ao mean PG Lat Peak E' Deon PA V2 max : 5.3 mmHg : 97.2 cm/sec E/E' lat: 12.9 PA mean PG E/e' average: 14.3 PA Accel Time : 0.10 sec MV dec time Ao V2 mean PA V2 mean : 0.11 sec : 108.7 cm/sec : 66.7 cm/sec Ao V2 VTI: 26.6 cm PA pr(Accel) : 34.1 mmHg Reading Physician:05:13 PM
[2016-08-04] MEDS ORDERED: Amiodarone 360 mg/200 mL D5W Premix IV ONE ×2 (17:55)
[2016-08-04] MEDS ORDERED: IV Premix 1 EACH IV ONE ×2 (17:55)
--- NOTE | 2016-08-04 17:57 | NUR ---
Cardiac HR continues to run 100-110 bpm. HR does increase as high as 150's with activity and sustain. Patient reports increased SOB when episodes occur. Denies chest pain. Orders received for Amiodarone gtt. Report given to Jeimy Marcos RN. Transferred to 2nd floor.
--- NOTE | 2016-08-04 19:19 | NUR ---
Transfer MPC/Amiodarone gtt Patient transferred to 2006 with belongings via wheelchair. Resp paged to set up c pap. Patient VSS, tele A fib 100-140's. Amiodarone bolus given and gtt started at 33.3 ml/hr. Cardiology in to assess patient. Report given to Hollie WERNER. [facility] called regarding 1700 meds and no meds available. Noc RN will follow up with pharmacy.
--- NOTE | 2016-08-04 20:15 | PROG NOTE ---
[address] [address] PROGRESS NOTE PATIENT: DANITZA PUTNAM : 1935 MR#: [id number] ADMIT: 07/30/2016 JOB ID: [id number] DATE: 08/04/2016 HISTORY OF PRESENT ILLNESS: I saw and examined the patient. Please see the notes by Patel Olmstead PA-C for details. IMPRESSION: 1. Atrial fibrillation with rapid ventricular response of unknown duration. 2. Nonischemic cardiomyopathy with ejection fraction 35%-40%. 3. Aspiration pneumonia. 4. Obstructive sleep apnea on CPAP. 5. Status post right nephrectomy. 6. Hypothyroidism on levothyroxine 100 mcg daily. PLAN: Her atrial fibrillation rate has not been controlled for the past five days since admission. I suspect that this could be multifactorial. I would like to decrease her levothyroxine supplement from 100 mcg daily to 88 mcg once daily as her TSH level is only 0.381. Her target TSH range should be between 0.5-3.0 milliinternational units per L. She is currently receiving diltiazem 360 mg p.o. daily, metoprolol 12.5 mg p.o. b.i.d., and intravenous amiodarone. I will increase metoprolol from 12.5 to 25 mg b.i.d. for rate control. Isosorbide mononitrate will be discontinued, as she does not have ischemic heart disease by cardiac catheterization on January 18, 2014. She does not have any fever or hypovolemia that could explain uncontrolled atrial fibrillation. I will order a venous ultrasound to rule out deep venous thrombosis.
[2016-08-04] MEDS ORDERED: 0.9% Sodium Chloride 250 ML ONE (21:54)
[2016-08-05] VITALS (8 sets, daily range): BP systolic 100–141; BP diastolic 63–98; PULSE 94–120; RESP 16–22; O2SAT 96–99
[2016-08-05] MEDS ORDERED: IV Premix 1 EACH IV ONE ×2 (01:01→13:32)
[2016-08-05] MEDS ORDERED: Amiodarone 360 mg/200 mL D5W Premix IV ONE ×2 (01:01→13:32)
[2016-08-05 03:05] LABS: BASOPHILS % (AUTO) 0.8 % (0-3); EOSINOPHILS % (AUTO) 2.4 % (0-5); MONOCYTES % (AUTO) 9.8 % (4-12); Mean Corpuscular Volume 88.5 fL (81-100); NEUTROPHILS % (AUTO) 70.4 % (40-74); Platelet Count 232 bil/L (150-400)
[2016-08-05 03:19] LABS: INR 3.65 ratio
--- NOTE | 2016-08-05 04:49 | NUR ---
Telemetry/Amiodarone Pt denies any chest pain/discomfort or palpitations. Telemetry Afib HR 80s-low 100s. Dsypnea with exertion noted. HR up to 120s with activity. Pt c/o mild sob at rest. 02sat in mid 90s on 2-3L. Pt wearing CPAP last night but 02sat noted 90-91%. Desat to high 80s while pt sleeping and wearing CPAP. RT not able to bleed 02 through pt's machine. RT switched pt back to 3L at this time. Addendum: 08/05/16 at 0712 by ERICA STEWART RN made aware of am lab value 3.3.
[2016-08-05] MEDS ORDERED: Potassium Chloride 20 mEq SR Tablet PO ONE (07:50)
--- NOTE | 2016-08-05 08:10 | NUR ---
NUTRITION ASSESSMENT: ASSESS: 80 YO female admitted for recently diagnosed rapid a-fib, aspiration pneumonia, and sciatica pain. Modified barium swallow 08/01 showing trace silent aspiration. Atrial fibrillation rate has not been controlled for the past five days since admission. Cardiology suspects this could be multifactorial; Synthroid dose decreased. Pt. reporting dark stools. Code status: DNR / DNI. PMHx: A-fib with RVR, bilateral leg pain, TN, renal cancer status post nephrectomy, HTN, sciatica, asthma, CHF, GERD, anemia. LABS: K+ 3.3, Cr 1.01, Glu 123, Ca 7.7, Alb 2.6. MEDS: Reviewed. Synthroid, Coumadin, Lopressor, MVI. GI: BM x 1 today. WT: 102.0 kg, BMI 42.0 kg/mg2. Admit weight: 102.8 kg. Adj BW: 61.5 kg. DIET: General. PO intake 50% - 100% trays, significantly improved. EST. NEEDS: 2891-8748 kcals (25-30 kcals/kg Adj BW), 75-95 g protein (1.2-1.5 g/kg Adj BW) NUTRITION DIAGNOSIS: 1) Inadequate oral intake related to chewing / swallowing difficulties as evidenced by PO intake of 25-50% of meals x 3 days - IMPROVED. NUTRITION INTERVENTION: 1) Will discontinue supplements BID. MONITOR / EVAL: PO intake, labs, nutritional status. Follow up per moderate nutritional risk guidelines.
[2016-08-05] MEDS: Diltiazem CD 180 mg ER24 Capsule PO SCH (08:30)
[2016-08-05] MEDS: ZAFIRLUKAST 20 MG PO SCH ×2 (08:30→20:30)
--- NOTE | 2016-08-05 09:33 | DRSVH ---
PROCEDURE: US VENOUS LEG DUPLEX BILATERAL INDICATIONS: DVT?? TECHNIQUE: Real-time imaging, as well as color and pulse Doppler interrogation, were performed of the deep veins of both legs from the inguinal ligament to the popliteal fossa. COMPARISON: None. FINDINGS: The deep veins are normally compressible, and free of intraluminal thrombus. Color and pu lse Doppler demonstrate normal phasic intravascular flow. There is normal augmentation response to d istal compression maneuver. IMPRESSION: No deep venous thrombosis in the left or right lower extremity. Dictated by: Cindy Rodriges M.D. on 08/05/2016 at 9:29 Approved by: Cindy Rodriges M.D. on 08/05/2016 at 9:32
[2016-08-05] MEDS: Piperacillin-Tazo 3.375 Gm Inj 3.375 GM in Dextrose 5% Minibag Plus 50 ML IV SCH ×2 (10:00→20:42)
--- NOTE | 2016-08-05 10:21 | NUR ---
Social Work: Readiness for Discharge D: Pt was transferred to PCC overnight to increased HR. Cardiology is aware and pt placed on Amiodarone gtt. Pt continues to be SBA for ambulation. Pt currently on 2L 02. Pt uses a walker at baseline. BUSINESS SUPERVISOR met with pt and family at bedside to provide floor BUSINESS SUPERVISOR contact information. Pt states she has no concerns about discharge home and continues to be I with ambulation. Pt uses a walker and lives with her family. A: Pt who is I at baseline. P: Anticipate pt to discharge home via POV (son) once medically stable; BUSINESS SUPERVISOR to continue to follow. BRE [place]
--- NOTE | 2016-08-05 10:35 | NUR ---
[facility] Signed
--- NOTE | 2016-08-05 11:27 | PCM.PHAPRO ---
Progress Date of Service: Aug 05, 2016 Atrial fibrillation with RVR INR = 3.65, hgb/hct = 9.6/31.5, plts 232. Pt continues on warfarin for afib. Large increase in INR today. Will hold warfarin tonight. INR ordered for am. Pharmacy will continue to follow this pt 's warfarin therapy. Phylicia Montes PharmD Aug 05, 2016 11:27
[2016-08-05] MEDS: Fluticasone-Salmeterol 500-50 Inhaler INHALATION SCH ×2 (12:36→20:39)
[2016-08-05] MEDS: Fluticasone 0.05% 15 Spray/2 Gm 16 Gm Nasal Spray NASAL SCH ×2 (12:36→20:40)
[2016-08-05 14:31] LABS: Magnesium 2.3 mg/dL (1.6-2.6)
--- NOTE | 2016-08-05 17:18 | PCM.PNMED ---
Subjective Date of Service Aug 05, 2016 Subjective Overnight: Nursing noted dyspnea with exertion and HR increased to 120s with activities. 02 sat in mid 90s on 2-3L. CPAP at night and desat to high 80s while pt sleeping, and was switched back to 3L at this time. No other acute event. Telemetry Afib HR 80s-low 100s. Today: Patient reports to feel better and has no complaint. She still has the persistent intermittent nonproductive cough, but denies CP or SOB. She has not been up and moving much due to all the IV lines. Per PT, patient is at baseline for mobility. No further PT needs at this time. She's voiding and stooling normally. Exam Vital Signs Vital Sign - Last Date Time Temp Pulse Resp B/P Pulse Ox O2 Delivery O2 Flow Rate FiO2 08/05/16 16:22 36.8 106 22 141/98 96 Nasal Cannula 2.00 Intake and Output 08/04/16 08/04/16 08/05/16 Cumulative From/Thru 15:00 23:00 07:00 07/30/16 04:36 - 08/05/16 06:03 Intake Total 300 ml 436 ml 568 ml 9217 ml Output Total 650 ml 700 ml 650 ml 7895 ml Balance -350 ml -264 ml -82 ml 1322 ml Intake Oral 300 ml 436 ml 300 ml 7736 ml IV Total 268 ml 1481 ml Output Urine Total 650 ml 700 ml 300 ml 7545 ml Urine/Stool Mix 350 ml 350 ml # Voids 3 6 # Bowel Movements 0 2 1 5 Exam General: Elderly female sitting in bedside chair and in no acute distress, well- developed, well-nourished, appropriately interactive HEENT: Normocephalic, atraumatic. Anicteric sclerae, moist conjunctivae, and no lid lag. Mild blepharitis of the left eye. Moist oral mucosa. Neck: Palpable right submandibular mass 3-4 cm in length. Supple with full range of motion. No lymphadenopathy or thyromegaly. Cardiovascular: Irregularly irregular rhythm without murmurs, rubs, or gallops appreciated Pulmonary: Intermittent dry cough. Clear to auscultation bilaterally with no crackles, wheezes, or rhonchi. Normal respiratory effort with no use of accessory muscles. On nasal cannula at 2L. Abdomen: Bowel tones present. Soft, nontender, nondistended. No hepatosplenomegaly or masses appreciated. Extremities: No clubbing, cyanosis, or edema. Skin: Normal temperature, turgor, and texture; no rash, ulcers, or subcutaneous nodules appreciated. Neurological: Normal speech. Moving all extremities spontaneously. Psychiatric: Normal mood and affect. Alert and oriented to person, place, and time. IVs and Medications Medications Reviewed: Medications were reviewed in detail Lab and Diagnostics Result Diagram: 08/05/16 0256 08/05/16 1350 Microbiology Respiratory viral PCR negative. Blood culture 2 shows no growth after 24 hours. MRSA screen negative. Sputum culture light normal krista. Strep pneumoniae and legionella urine antigens negative. . X-Rays, CTs and MRIs X-RAY CHEST ONE VIEW, PORTABLE IMPRESSION: 1. Mild right lung base atelectasis versus pneumonia. 2. Cardiomegaly. Dictated by: Rosenda Black M.D. on 07/30/2016 at 7:43 Approved by: Rosenda Black M.D. on 07/30/2016 at 7:44 CT LUMBAR SPINE WITHOUT CONTRAST IMPRESSION: 1. Multilevel degenerative disc and facet disease, which could be further assessed with MRI, if clinically indicated. 2. No fracture. 3. Bilateral lower lobe pneumonia. Dictated by: Rosenda Black M.D. on 07/30/2016 at 8:37 Approved by: Rosenda Black M.D. on 07/30/2016 at 8:39 PROCEDURE: US SOFT TISSUE OF HEAD OR NECK SONOGRAM IMPRESSION: Nonspecific soft tissue heterogeneous solid mass with mild vascularity. Findings are nonspecific and neoplasm cannot be excluded. Recommend clinical correlation and if indicated sonographically directed fine needle aspiration could be performed for pathologic diagnosis. Approved by: Linda Seth M.D. on 08/03/2016 at 11:49 PROCEDURE: US VENOUS LEG DUPLEX BILATERAL IMPRESSION: No deep venous thrombosis in the left or right lower extremity. Dictated by: Cindy Rodriges M.D. on 08/05/2016 at 9:29 Approved by: Cindy Rodriges M.D. on 08/05/2016 at 9:32 Cardiac Echo Impressions Echo Interpretation Summary by Dr. Ryan Ahumada on 08/04/2016: The left ventricle is normal in size. There is normal left ventricular wall thickness. The ejection fraction is estimated to be 35-40%. There are no focal wall motion abnormalities. The right ventricle is normal in size and function. There is mild mitral annular calcification. There is mild mitral regurgitation. The aortic valve is normal in structure and function. The left atrium is severely dilated. The right ventricular systolic pressure is estimated at 34 mmHg assuming a right atrial pressure of 3 mm Hg. There is no pericardial effusion. Compared to the previous study, the patient is now in atrial fibrillation and LV systolic function is worse. Assessment & Plan Patient is an 80 year-old female with a medical history that includes hypertension, sciatica, CHF, CO, atrial fibrillation, chronic anemia, asthma, and renal cancer s/p right nephrectomy who presented to the ED via EMS with bilateral buttocks pain (R>L) that radiated down her legs to her knees. 1. Atrial fibrillation with RVR, present on admission, just began warfarin for anticoagulation 2 days prior to admission. Active. - newly diagnosed 07/27/16 in [place] - HR 130s when came in. - Diltiazem injections given for a total of 25mg. Started her on oral diltiazem 120mg daily with parameters for diltiazem 5mg injections. She reportedly was started on 240mg two days prior to admission. Diltiazem was further increased to 360 mg daily. Metoprolol 12.5mg was also added for rate control. -However, HR remained elevated in the 100s-140s. Cardiology was consulted and started the patient on Amiodarone drip starting on 08/04. - Metoprolol increased to 25mg daily and continue Diltiazem 360mg daily per Cardiology. - Continue Clopidogrel 75 mg daily - warfarin per pharmacy. INR is 3.65 today. - Continue Telemetry 2. Community acquired pneumonia possible aspiration pneumonia, present on admission, improved. - Seen on x-ray and CT, which showed bilateral lobe pneumonia. - blood cultures, legionella, strep pneumo, viral PCR, MRSA all negative. - Procalcitonin was 1.82, trending down to 0.3 today. - Ceftriaxone and azithromycin stopped and switched to Zosyn for aspiration pneumonia coverage on 08/01/16. - Barium swallow showed trace aspiration. - Continue to monitor vital signs. 3. Systolic congestive heart failure, present on admission, chronic. - Repeat echo shows worsened LV sytolic function compared to the previous Echo in 12/2013. The ejection fraction is estimated to be 35-40% (60-65% before). - Followed by cardiology. Their time and recommendations are greatly appreciated. - Patient does not appear to be fluid overloaded. 4. Bilateral lower extremity pain, present on admission, chronic. - Venous U/S ruled out DVT. - Low Calcium and Potassium. Will continue to follow lytes and replenish as needed. 5. Dysphagia, chronic, present on admission. Active - Patient reports difficultly swallowing solids and has a palpable submandibular neck mass - Prior modified barium swallow imaging showed severe spontaneous gastroesophageal reflux - US neck showed heterogeneous solid mass with mild vascularity - Recommend follow up as an outpatient with fine needle biopsy of the mass 6. Hypothyroid, present on admission, chronic - TSH 0.381, mildly low but free T4 within normal limits - Given uncontrolled Afib, Levothyroxine was decreased from 100mcg to 88 mcg daily 7. Chronic anemia, present on admission, stable. - Continue Ferrous sulfate 325 mg BID 8. Acute on chronic kidney failure, present on admission, improved. - S/p right nephrectomy - BUN and Cr trending down - Avoid nephrotoxic medications 9. Hypertension, present on admission, chronic - Stop Isosorbide mononitrate 30mg per Cardiology's recommendation. Patient does not have ischemic heart disease by cardiac cath on 01/18/2014. - Furosemide and losartan were held yesterday as patient's blood pressure was low. - Will consult with Cardiology before resuming losartan and furosemide. 10. Dyslipidemia, present on admission, chronic - continue Atorvastatin 80 mg daily 11. COPD, present on admission, chronic - DuoNebs Q6hrs PRN; albuterol inhalers Q4hrs PRN 12. Depression, present on admission, chronic - Continue Citalopram 40mg daily 13. History of CO, chronic, stable. - Note that QTc was 555 on admission 14. Allergies, present on admission, chronic - continued Zafirlukast 15. Acute on chronic pain, present on admission - continued home tramadol PRN - Acetaminophen as needed for mild pain/fever/headache - Bowel regimen as needed & continued home dose of docusate - Antiemetic as needed Patient admitted under inpatient status with expected length of stay > 2 midnights for severity of present symptoms, complexities of treatment plan and risk for adverse events CODE STATUS: DNR/DNI confirmed with patient 07/30/16 Pain Evaluation: Adequate Pain Control VTE Prophylaxis: Theraputic Anticoag with Warfarin VTE Mechanical Devices: Intermittant Pneumatic CD Resuscitation Status: DNR/DNI:Do Not Resuscitate/Intubate Attending Statement The patient was seen and examined together with Dr. Alvarez on 08/05/2016 and I agree with the history, exam and plan as outlined in the note above. . Jasmyne Alvarez DO Aug 05, 2016 17:18 Patel Oneill MD Aug 06, 2016 14:02
--- NOTE | 2016-08-05 18:42 | NUR ---
Tele/Amiodarone gtt/Stool/0830 meds Patient alert and oriented x3, GRAY, up SBA for line management to BSC, up to chair this afternoon-- tolerating well. SPO2 on 2LNC mid to high 90s, reports no SOB at rest and "some" with exertion. Tele AFIB 80s-110s at rest, up to 130s with activity. BP within normal limits (checked Q1 hour). No reports of n/v or abdominal pain, patient does report intermittent diarrhea (x1 today) -- stool softeners withheld. Amiodarone gtt currently infusing at maintenance rate of 16.7mls/hour (0.5mg/minute). 0830 meds not in drawer or at either unit station-- pharmacy notified x2, meds not delivered/administered until approx 1230--MD aware.
--- NOTE | 2016-08-05 19:59 | PROG NOTE ---
[address] [address] CARDIOLOGY PROGRESS NOTE PATIENT: DANITZA PUTNAM : 1935 MR#: [id number] ADMIT: 07/30/2016 JOB ID: [id number] DATE OF SERVICE: 08/05/2016 08/05/2016 CARDIOLOGY PROGRESS NOTE: SUBJECTIVE: Ms Putnam is a very pleasant 80-year-old lady with recently diagnosed atrial fibrillation with RVR, anticoagulated with warfarin; diagnosed with pneumonia on this admission. For better control of Afib heart rate on this admission she was started on amiodarone drip; she is also on Diltiazem p.o., and metoprolol p.o. Her heart rate is better controlled, per telemetry it has been mainly in the 90s. She has been feeling much better. She tells me that she has a good appetite. She gets up and moves around in the room, denies having any chest discomfort or dyspnea on exertion. She is able to lay down flat without shortness of breath, denies palpitations; sometimes feels lightheaded. Yesterday night she had a fever to 38.3 C, but not anymore. Labs from today show normal kidney function, slight hypokalemia with a potassium 3.4. Her chronic anemia is stable. Her INR is supratherapeutic at 3.65, which could be secondary to interaction of warfarin with amiodarone. Her white blood cells are normal. OBJECTIVE: Vital signs: Temperature 36.8, blood pressure 141/98, pulse oximetry 96% on room air, pulse rate 90 beats per minute, respiration rate 22 per minute. General: she is in the bed, lying comfortably, not in acute distress, appropriately interactive. HEENT: Sclerae anicteric. Mucous membranes moist. Neck supple. No lymphadenopathy, no thyromegaly. Cardiovascular: Irregularly irregular rhythm. No murmur appreciated, no rubs or gallops appreciated. JVP is not elevated at 45 degree; Pulmonary: Breathing effort normal, normal breathing sounds to bilaterally, no crackles, no wheezing. Abdomen: Nontender with palpation. Extremities: Lower extremity edema trace. Skin: No rash. Cleve: Alert and oriented x3. No gross abnormalities. ASSESSMENT AND PLAN: A-fib could be infection/pneumonia related. Her atrial fibrillation heart rate has been better controlled. Her echo from August 04, 2016 showed decreased cardiac function with LV EF 35% to 40%. Left and right ventricles are normal size; no significant valvular abnormalities. Her right ventricular systolic pressures is slightly elevated with normal central venous pressure. Comparing to her echo from January 16, 2014, her ejection fraction is decreased from 60-65% back to that time. On exam the patient does not look fluid overloaded. This decrease of cardiac function could be secondary to atrial fibrillation with RVR. It should be noted that the patient had cardiac catheterization done in 2013 which showed nonobstructive coronary artery disease. Also, on this admission she had low TSH and levothyroxine dose was adjusted. Taking in mind that her ejection fraction is decreased, in the long run it would be beneficial for her to come out from the Diltiazem and keep her on beta-ludin metoprolol. Our recommendation would be to stop amiodarone drip today, decrease the dose of Diltiazem today to 240 mg daily, and switch her from metoprolol tartrate to metoprolol succinate and up-titrate the dose to 50 mg twice a day. Eventually Diltiazem can be discontinued and Metoprolol succinate can be uptitrated further. For her mild hypokalemia would recommend Potassium chloride 10 mEq daily. Her warfarin is on hold for her supratherapeutic INR. Taking in mind that the patient had a fever yesterday night, will also recommend to order chest x-ray. I explained all of this in details to the patient and her son today. The case was discussed with Dr. Jocelyn ORELLANA
--- NOTE | 2016-08-05 20:01 | DRSVH ---
PROCEDURE: X-RAY CHEST ONE VIEW, PORTABLE ([id number]) INDICATIONS: pneumonia TECHNIQUE: One view of the chest was acquired. COMPARISON: [facility], CR, XR CHEST 1VW (PORTABLE), 07/30/2016, 4:50. FINDINGS: Surgical changes and devices: None. Lungs and pleura: Focal pulmonary opacities are present at the inferior right upper lobe and within t he right midlung. These have increased in conspicuity when compared with the study dated 07/30/16. Mediastinum: Mediastinal contours appear normal. Heart size is normal. Bones and chest wall: No suspicious bony lesions. Overlying soft tissues appear unremarkable. IMPRESSION: Increased pulmonary radiopacities when compared with the prior CT dated 07/30/16 suggestin g worsening pneumonia. Dictated by: Linda Seth M.D. on 08/05/2016 at 19:58 Approved by: Linda Seth M.D. on 08/05/2016 at 20:00
[2016-08-05] MEDS: MeTOProlol XL 50 mg ER24 Tablet PO SCH (20:40)
[2016-08-06] VITALS (9 sets, daily range): BP systolic 105–129; BP diastolic 52–85; PULSE 76–123; RESP 16–26; O2SAT 95–98
[2016-08-06 04:37] LABS: BASOPHILS % (AUTO) 0.9 % (0-3); EOSINOPHILS % (AUTO) 4.6 % (0-5); MONOCYTES % (AUTO) 6.9 % (4-12); NEUTROPHILS % (AUTO) 64.9 % (40-74); Platelet Count 270 bil/L (150-400)
[2016-08-06 04:53] LABS: INR 3.03 ratio
--- NOTE | 2016-08-06 06:46 | PCM.CONPHA ---
Subjective Atrial fibrillation with RVR Objective Vital Signs Date Time Temp Pulse Resp B/P Pulse Ox O2 Delivery O2 Flow Rate FiO2 08/06/16 06:08 97 08/06/16 03:39 36.8 107 26 128/82 98 CPAP 08/05/16 23:56 36.8 106 17 103/76 98 Nasal Cannula 2.00 08/05/16 21:54 Supplement Oxygen CPAP/BIPAP 08/05/16 21:52 37.2 08/05/16 20:43 96 20 121/63 98 Room Air 08/05/16 18:00 Supplement Oxygen CPAP/BIPAP 08/05/16 16:22 36.8 106 22 141/98 96 Nasal Cannula 2.00 08/05/16 11:40 37.5 104 16 100/65 96 Nasal Cannula 2.00 08/05/16 09:30 37.0 113 18 97 Nasal Cannula 2.00 08/05/16 09:30 Supplement Oxygen CPAP/BIPAP 08/05/16 07:49 96 Intake and Output 08/03/16 08/04/16 08/05/16 23:59 23:59 23:59 Intake Total 1458 ml 736 ml 1385 ml Output Total 1420 ml 1350 ml 850 ml Balance 38 ml -614 ml 535 ml Weight (Kilograms): 102.500 Height (Feet): 5 Height (Inches): 1.00 Test 07/30/16 05:10 07/30/16 12:36 07/31/16 02:25 07/31/16 05:40 Activated Partial Thromboplast Time 31.9sec (22.8-33.0) Hemoglobin A1c 5.6% (4.8-5.6) Pro-B-Type Natriuretic Peptide 714.4pg/mL (0-738) Hold Smith Top Tube Received (Received) Urine Legionella pneumophilia Ag Negative (Negative) Troponin T 0.010ug/L (0.0-0.011) Thyroid Stimulating Hormone (TSH) 0.381uIU/mL (0.450-4.500) Test 07/31/16 07:36 08/03/16 20:30 08/05/16 02:56 08/05/16 13:50 Free Thyroxine 1.56ng/dL (0.82-1.77) Urine Color Yellow (YELLOW) Urine Appearance Hazy (CLEAR,HAZY) Urine pH 6.0 (5.0-8.0) Urine Specific [place] 1.015 (1.003-1.035) Urine Protein Tracemg/dL (NEG,TRACE) Urine Glucose (UA) Negativemg/dL (NEGATIVE) Urine Ketones Negativemg/dL (NEGATIVE) Urine Occult Blood Small (NEGATIVE) Urine Nitrite Negative (NEGATIVE) Urine Bilirubin Negative (NEGATIVE) Urine Urobilinogen Normalmg/dL (NORMAL) Urine Leukocyte Esterase Trace (NEGATIVE) Urine RBC 3-10/hpf (0-2) Urine WBC 6-10/hpf (0-5) Urine Epithelial Cells Moderate/hpf (NONE-MOD) Urine Crystals None seen (NONE SEEN) Urine Bacteria Few/hpf (NONE-FEW) Urine Hyaline Casts Rare/lpf (NONE) Urine Granular Casts None seen (NONE SEEN) Urine Waxy Casts None seen (NONE SEEN) Urine Red Blood Cell Casts None seen (NONE SEEN) Urine White Blood Cell Casts None seen (NONE SEEN) Urine Mucus None seen (None Seen) Urine Trichomonas None seen (NONE SEEN) Urine Yeast None (NONE SEEN) Urinalysis Comment None Procalcitonin 0.30ng/mL (0.00-0.08) Magnesium Level 2.3mg/dL (1.6-2.6) Test 08/06/16 04:17 White Blood Count 4.4th/mm3 (3.8-10.1) Red Blood Count 3.56mil/mm3 (3.90-5.20) Hemoglobin 9.6g/dL (12.0-15.6) Hematocrit 31.7% (35.0-46.0) Mean Corpuscular Volume 89.0fL (81-100) Mean Corpuscular Hemoglobin 27.0pg (27.0-35.0) Mean Corpuscular Hemoglobin Concent 30.3% (32.0-37.0) Red Cell Distribution Width 14.3% (12.3-15.4) Platelet Count 270bil/L (150-400) Neutrophils (%) (Auto) 64.9% (40-74) Lymphocytes (%) (Auto) 22.5% (14-46) Monocytes (%) (Auto) 6.9% (4-12) Eosinophils (%) (Auto) 4.6% (0-5) Basophils (%) (Auto) 0.9% (0-3) Prothrombin Time 33.2sec (8.1-12.5) Prothromb Time International Ratio 3.03ratio Sodium Level 140mEq/L (134-144) Potassium Level 4.3mEq/L (3.5-5.2) Chloride Level 106mEq/L (97-108) Carbon Dioxide Level 25mmol/L (18-29) Blood Urea Nitrogen 10mg/dL (8-27) Creatinine 0.95mg/dL (0.57-1.00) Estimat Glomerular Filtration Rate 81mL/min (>59) Glucose Level 97mg/dL (60-99) Calcium Level 7.7mg/dL (8.5-10.1) Total Bilirubin 0.2mg/dL (0.0-1.2) Aspartate Amino Transf (AST/SGOT) 35U/L (0-50) Alanine Aminotransferase (ALT/SGPT) 16U/L (0-32) Alkaline Phosphatase 80U/L (25-165) Total Protein 5.7g/dL (6.4-8.4) Albumin 2.6g/dL (3.4-5.0) Assessment/Plan Assessment/Plan -Aug 05-Aug 06-Jul 2.56 3.65 3.03 0.47 1.09 -0.62 3 HOLD 0.5 Elmer Hassan Aug 06, 2016 06:46
[2016-08-06] MEDS ORDERED: Diltiazem CD 240 mg ER24 Capsule PO SCH (08:30)
[2016-08-06] MEDS: ZAFIRLUKAST 20 MG PO SCH ×2 (08:30→19:33)
[2016-08-06] MEDS: Fluticasone 0.05% 15 Spray/2 Gm 16 Gm Nasal Spray NASAL SCH ×2 (08:38→19:33)
[2016-08-06] MEDS: Piperacillin-Tazo 3.375 Gm Inj 3.375 GM in Dextrose 5% Minibag Plus 50 ML IV SCH ×2 (08:38→20:30)
[2016-08-06] MEDS: Fluticasone-Salmeterol 500-50 Inhaler INHALATION SCH ×2 (08:38→19:33)
[2016-08-06] MEDS: MeTOProlol XL 50 mg ER24 Tablet PO SCH ×2 (09:46→19:33)
--- NOTE | 2016-08-06 15:57 | PROG NOTE ---
[address] [address] PROGRESS NOTE PATIENT: DANITZA PUTNAM : 1935 MR#: [id number] ADMIT: 07/30/2016 JOB ID: [id number] DATE: 08/06/2016 CARDIOLOGY FOLLOWUP NOTE: The patient feels well today. She states that her breathing is improved and her cough is somewhat less, although she is still producing whitish sputum. She reports that when it 1st started, she was coughing up brownish sputum and some degree of hemoptysis. She is not aware of the atrial fibrillation. She is sleeping well and has had a good appetite for the past couple of days. OBJECTIVE: On exam, her heart rate is still ranging between 90 and 115 beats per minute in atrial fibrillation. Blood pressures are ranging in the 105-130 range. O2 saturation on room air is 96%. Her last temperature was two days ago at 38.3. She has been afebrile since. On exam, I do not detect any evidence of significant jugular venous distention. Her lungs show evidence of consolidation at the right mid and lower lung jorge. I do not hear any wheezing. Heart tones are distant with a moderately rapid and irregular rate without a significant cardiac murmur. She has diffuse upper extremity ecchymoses as expected. She is alert, oriented, pleasant. LABORATORY DATA: Shows stable hemoglobin at 9.5. White count is normal. Platelet count is normal. Chemistries show a normal set of electrolytes, normal renal function. Telemetry again demonstrates fairly stable rhythm with atrial fibrillation and heart rates in the 90 to 110 to 115 range. I continue to recommend transitioning her from diltiazem to metoprolol. I am going to increase her metoprolol to 100 mg twice a day and discontinue her diltiazem today starting with this evening's dose. Attention may need to be paid to her progressive pulmonary infiltrate and evidence of consolidation and I will leave that to the hospital doctors.
--- NOTE | 2016-08-06 16:57 | PCM.PNMED ---
Subjective Date of Service Aug 06, 2016 Subjective Overnight: Patient had intermittent loose stool (x1 today) so stool softeners were withheld. No other acute event. Tele Afib 80-100s, up to 120s with activities. Today: Patient reports to feel well today. She admits that her breathing and cough have improved. She has ambulated to the wires around her. The patient feels well today. She had a good night sleep and has had a good appetite. No issue with voiding and stooling. Exam Vital Signs Vital Sign - Last Date Time Temp Pulse Resp B/P Pulse Ox O2 Delivery O2 Flow Rate FiO2 08/06/16 06:08 97 08/06/16 03:39 36.8 26 128/82 98 CPAP 08/05/16 23:56 2.00 Intake and Output 08/05/16 08/05/16 08/06/16 Cumulative From/Thru 15:00 23:00 07:00 07/30/16 04:36 - 08/06/16 06:08 Intake Total 817 ml 420 ml 94659 ml Output Total 200 ml 350 ml 8445 ml Balance 617 ml 70 ml 2009 ml Intake Oral 500 ml 300 ml 8536 ml IV Total 317 ml 120 ml 1918 ml Output Urine Total 350 ml 7895 ml Urine/Stool Mix 200 ml 550 ml # Voids 3 9 # Bowel Movements 1 1 7 Exam General: Elderly female sitting in bedside chair and in no acute distress, well- developed, well-nourished, appropriately interactive HEENT: Normocephalic, atraumatic. Anicteric sclerae, moist conjunctivae, and no lid lag. Mild blepharitis of the left eye. Moist oral mucosa. Neck: Palpable right submandibular mass. Supple with full range of motion. No lymphadenopathy or thyromegaly. Cardiovascular: Irregularly irregular rhythm without murmurs, rubs, or gallops appreciated Pulmonary: Decreased breath sound at the bases with mild crackles. Normal respiratory effort with no use of accessory muscles. Abdomen: Bowel tones present. Soft, nontender, nondistended. No hepatosplenomegaly or masses appreciated. Extremities: No clubbing, cyanosis, or edema. Bilateral calves and arms are tender to palpation. Skin: Normal temperature, turgor, and texture; no rash, ulcers, or subcutaneous nodules appreciated. Neurological: Normal speech. Moving all extremities spontaneously. Psychiatric: Normal mood and affect. Alert and oriented to person, place, and time. IVs and Medications Medications Reviewed: Medications were reviewed in detail Lab and Diagnostics Result Diagram: 08/06/1641608/06/16416 Microbiology Respiratory viral PCR negative. Blood culture 2 shows no growth after 24 hours. MRSA screen negative. Sputum culture light normal krista. Strep pneumoniae and legionella urine antigens negative. . X-Rays, CTs and MRIs X-RAY CHEST ONE VIEW, PORTABLE IMPRESSION: 1. Mild right lung base atelectasis versus pneumonia. 2. Cardiomegaly. Dictated by: Rosenda Black M.D. on 07/30/2016 at 7:43 Approved by: Rosenda Black M.D. on 07/30/2016 at 7:44 CT LUMBAR SPINE WITHOUT CONTRAST IMPRESSION: 1. Multilevel degenerative disc and facet disease, which could be further assessed with MRI, if clinically indicated. 2. No fracture. 3. Bilateral lower lobe pneumonia. Dictated by: Rosenda Black M.D. on 07/30/2016 at 8:37 Approved by: Rosenda Black M.D. on 07/30/2016 at 8:39 PROCEDURE: US SOFT TISSUE OF HEAD OR NECK SONOGRAM IMPRESSION: Nonspecific soft tissue heterogeneous solid mass with mild vascularity. Findings are nonspecific and neoplasm cannot be excluded. Recommend clinical correlation and if indicated sonographically directed fine needle aspiration could be performed for pathologic diagnosis. Approved by: Linda Seth M.D. on 08/03/2016 at 11:49 PROCEDURE: US VENOUS LEG DUPLEX BILATERAL IMPRESSION: No deep venous thrombosis in the left or right lower extremity. Dictated by: Cindy Rodriges M.D. on 08/05/2016 at 9:29 Approved by: Cindy Rodriges M.D. on 08/05/2016 at 9:32 Cardiac Echo Impressions Echo Interpretation Summary by Dr. Ryan Ahumada on 08/04/2016: The left ventricle is normal in size. There is normal left ventricular wall thickness. The ejection fraction is estimated to be 35-40%. There are no focal wall motion abnormalities. The right ventricle is normal in size and function. There is mild mitral annular calcification. There is mild mitral regurgitation. The aortic valve is normal in structure and function. The left atrium is severely dilated. The right ventricular systolic pressure is estimated at 34 mmHg assuming a right atrial pressure of 3 mm Hg. There is no pericardial effusion. Compared to the previous study, the patient is now in atrial fibrillation and LV systolic function is worse. Assessment & Plan Patient is an 80 year-old female with a medical history that includes hypertension, sciatica, CHF, VA, atrial fibrillation, chronic anemia, asthma, and renal cancer s/p right nephrectomy who presented to the ED via EMS with bilateral buttocks pain (R>L) that radiated down her legs to her knees. 1. Atrial fibrillation with RVR, present on admission, just began warfarin for anticoagulation 2 days prior to admission. Active. - newly diagnosed 07/27/16 in [place] - HR 130s when came in. - Diltiazem injections given for a total of 25mg. Started her on oral diltiazem 120mg daily with parameters for diltiazem 5mg injections. She reportedly was started on 240mg two days prior to admission. Diltiazem was further increased to 360 mg daily. Metoprolol 12.5mg was also added for rate control. -However, HR remained elevated in the 100s-140s. Cardiology was consulted and started the patient on Amiodarone drip on 08/04, which then discontinued in the evening. - Cardiology further increased Metoprolol 100mg BID and d/c Diltiazem 240mg. - Continue Clopidogrel 75 mg daily - warfarin per pharmacy. INR is 3.03 today. - Continue Telemetry 2. Community acquired pneumonia possible aspiration pneumonia, present on admission, active. - Seen on x-ray and lumbar CT, which showed bilateral lobe pneumonia. - blood cultures, legionella, strep pneumo, viral PCR, MRSA all negative. - Procalcitonin was 1.82, trending down to 0.3 yesterday. - Ceftriaxone and azithromycin stopped and switched to Zosyn for aspiration pneumonia coverage on 08/01/16. - Barium swallow showed trace aspiration. - Patient's symptoms are improving, yet the repeated CXR on 08/05 showed worsening pneumonia that does not correlate with her clinical symptoms. She might need a CT chest to evaluate the pulmonary infiltrate, especially given the ambiguous neck mass concerning for malignancy. Consider Pulmonology consult tomorrow. - Continue to monitor vital signs. 3. Systolic congestive heart failure, present on admission, chronic. - Repeat echo shows worsened LV sytolic function compared to the previous Echo in 12/2013. The ejection fraction is estimated to be 35-40% (60-65% before). - Followed by cardiology. Their time and recommendations are greatly appreciated. - Patient does not appear to be fluid overloaded. 4. Bilateral lower extremity pain, present on admission, chronic. - Venous U/S ruled out DVT. - Low Calcium and Potassium that improved today. Will continue to follow lytes and replenish as needed. 5. Dysphagia, chronic, present on admission. Active - Patient reports difficultly swallowing solids and has a palpable submandibular neck mass - Prior modified barium swallow imaging showed severe spontaneous gastroesophageal reflux - US neck showed heterogeneous solid mass with mild vascularity - Recommend follow up as an outpatient with fine needle biopsy of the mass 6. Hypothyroid, present on admission, chronic - TSH 0.381, mildly low but free T4 within normal limits - Given uncontrolled Afib, Levothyroxine was decreased from 100mcg to 88 mcg daily per card. 7. Chronic anemia, present on admission, stable. - Continue Ferrous sulfate 325 mg BID 8. Acute on chronic kidney failure, present on admission, improved. - S/p right nephrectomy - BUN and Cr trending down - Avoid nephrotoxic medications 9. Hypertension, chronic, stable. - Stop Isosorbide mononitrate 30mg per Cardiology's recommendation. Patient does not have ischemic heart disease by cardiac cath on 01/18/2014. - Furosemide and losartan were held since 08/04 as patient's blood pressure was low. - Will consult with Cardiology before resuming losartan and furosemide. 10. Dyslipidemia, present on admission, chronic - continue Atorvastatin 80 mg daily 11. COPD, present on admission, chronic - DuoNebs Q6hrs PRN; albuterol inhalers Q4hrs PRN 12. Depression, present on admission, chronic - Continue Citalopram 40mg daily 13. 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 - Note that QTc was 555 on admission. - Avoid QT prolongation drugs. 14. Allergies, present on admission, chronic - continued Zafirlukast 15. Acute on chronic pain, present on admission - continued home tramadol PRN - Acetaminophen as needed for mild pain/fever/headache - Bowel regimen as needed & continued home dose of docusate - Antiemetic as needed Patient admitted under inpatient status with expected length of stay > 2 midnights for severity of present symptoms, complexities of treatment plan and risk for adverse events CODE STATUS: DNR/DNI confirmed with patient 07/30/16 Pain Evaluation: Adequate Pain Control VTE Prophylaxis: Theraputic Anticoag with Warfarin VTE Mechanical Devices: Intermittant Pneumatic CD Resuscitation Status: DNR/DNI:Do Not Resuscitate/Intubate Attending Statement The patient was seen and examined together with Dr. Sebastian on 08/06/2016 and I agree with the history, exam and plan as outlined in the note above. . Jasmyne Alvarez DO Aug 06, 2016 07:19 Patel Oneill MD Aug 06, 2016 17:19
[2016-08-07] VITALS (8 sets, daily range): BP systolic 113–150; BP diastolic 58–95; PULSE 59–114; RESP 16–18; O2SAT 94–98
[2016-08-07 04:50] LABS: INR 2.01 ratio
[2016-08-07 04:53] LABS: BASOPHILS % (AUTO) 1.5 % (0-3); EOSINOPHILS % (AUTO) 5.7 % (0-5); Mean Corpuscular Hemoglobin 26.6 pg (27.0-35.0); Mean Corpuscular Volume 89.8 fL (81-100); NEUTROPHILS % (AUTO) 65.7 % (40-74); Platelet Count 313 bil/L (150-400)
--- NOTE | 2016-08-07 06:16 | NUR ---
Sleep Pt awake most of the night but is content. Pt put on Cpap and asleep at 0430 this am. Care clustered to allow for minimal interruption after this point.
--- NOTE | 2016-08-07 07:21 | PCM.PHAPRO ---
Progress Atrial fibrillation with RVR Aug 06-Aug 07-Jul 3.65 3.03 2.01 1.09 -0.62 -1.02 HOLD 0.5 3 Elmer Hassan Aug 07, 2016 07:21
[2016-08-07] MEDS: ZAFIRLUKAST 20 MG PO SCH ×2 (08:30→19:27)
[2016-08-07] MEDS: MeTOProlol XL 50 mg ER24 Tablet PO SCH ×2 (09:17→19:27)
[2016-08-07] MEDS: Fluticasone-Salmeterol 500-50 Inhaler INHALATION SCH ×2 (09:17→19:23)
[2016-08-07] MEDS: Fluticasone 0.05% 15 Spray/2 Gm 16 Gm Nasal Spray NASAL SCH ×2 (09:18→19:24)
[2016-08-07] MEDS: Piperacillin-Tazo 3.375 Gm Inj 3.375 GM in Dextrose 5% Minibag Plus 50 ML IV SCH ×2 (09:18→19:31)
--- NOTE | 2016-08-07 10:50 | NUR ---
[facility]
--- NOTE | 2016-08-07 11:04 | DRSVH ---
PROCEDURE: X-RAY CHEST, TWO VIEWS ([id number]) INDICATIONS: Right sided infiltrate, O2 need TECHNIQUE: 2 views of the chest were acquired. COMPARISON: [facility], CR, XR CHEST 1VW (PORTABLE), 08/05/2016, 19:34. FINDINGS: Surgical changes and devices: None. Lungs and pleura: Right focal pulmonary radiopacities are similar in appearance when compared to stud y dated 08/05/16. No new pulmonary radiopacities. No pleural effusion or pneumothorax. Mediastinum: Mediastinal contours are normal. Heart size is enlarged as before. Bones and chest wall: No suspicious bony abnormalities. Soft tissues appear unremarkable. IMPRESSION: 1. Unchanged right pulmonary radiopacities suspicious for multifocal pneumonia. Short interval follow up is recommended to ensure resolution of this finding and exclude underlying pulmonary pathology. Dictated by: Linda Seth M.D. on 08/07/2016 at 11:02 Approved by: Linda Seth M.D. on 08/07/2016 at 11:03
--- NOTE | 2016-08-07 12:09 | PCM.PNMED ---
Subjective Date of Service Aug 07, 2016 Subjective Patient reports that she is doing quite well today. She continues to need supplemental O23 so as not to feel short of breath. At home she does not use O2 only has CPAP. Generally, her asthma has been well controlled with Advair alone. She does not need to use rescue inhaler and they often without her having taken a puff. She has to walk up 19 stairs at home and this winds her but a brief rest and she is recovered. Overnight, the patient was able to sleep. She used her CPAP. Exam Vital Signs Vital Sign - Last Date Time Temp Pulse Resp B/P Pulse Ox O2 Delivery O2 Flow Rate FiO2 08/07/16 09:21 Supplement Oxygen 08/07/16 09:21 36.6 70 134/58 98 1.50 08/07/16 04:02 16 Intake and Output 08/06/16 08/06/16 08/07/16 Cumulative From/Thru 15:00 23:00 07:00 07/30/16 04:36 - 08/07/16 04:04 Intake Total 915 ml 60094 ml Output Total 700 ml 9145 ml Balance 215 ml 2224 ml Intake Oral 600 ml 9136 ml IV Total 315 ml 2233 ml Output Urine Total 700 ml 8595 ml Urine/Stool Mix 550 ml # Voids 9 # Bowel Movements 7 Exam General: Elderly female sitting in bedside chair and in no acute distress, well- developed, well-nourished, appropriately interactive HEENT: Normocephalic, atraumatic. Anicteric sclerae, moist conjunctivae, and no lid lag. Moist oral mucosa without thrush. Cardiovascular: Irregularly irregular rhythm without murmurs, rubs, or gallops appreciated Pulmonary: Expiratory wheeze noted, L>R. Normal respiratory effort with no use of accessory muscles. Abdomen: Bowel tones present. Soft, nontender, nondistended. No hepatosplenomegaly or masses appreciated. Extremities: No clubbing, cyanosis, or edema. Skin: Normal temperature, turgor, and texture; no rash, ulcers, or subcutaneous nodules appreciated. Neurological: Normal speech. Moving all extremities spontaneously. Psychiatric: Normal mood and affect. Alert and oriented to person, place, and time. IVs and Medications Medications Reviewed: Medications were reviewed in detail Lab and Diagnostics Result Diagram: 08/07/1641008/07/16410 X-Rays, CTs and MRIs X-RAY CHEST ONE VIEW, PORTABLE IMPRESSION: 1. Mild right lung base atelectasis versus pneumonia. 2. Cardiomegaly. Dictated by: Rosenda Black M.D. on 07/30/2016 at 7:43 CT LUMBAR SPINE WITHOUT CONTRAST IMPRESSION: 1. Multilevel degenerative disc and facet disease, which could be further assessed with MRI, if clinically indicated. 2. No fracture. 3. Bilateral lower lobe pneumonia. Dictated by: Rosenda Black M.D. on 07/30/2016 at 8:37 PROCEDURE: US SOFT TISSUE OF HEAD OR NECK SONOGRAM IMPRESSION: Nonspecific soft tissue heterogeneous solid mass with mild vascularity. Findings are nonspecific and neoplasm cannot be excluded. Recommend clinical correlation and if indicated sonographically directed fine needle aspiration could be performed for pathologic diagnosis. Approved by: Linda Seth M.D. on 08/03/2016 at 11:49 PROCEDURE: US VENOUS LEG DUPLEX BILATERAL IMPRESSION: No deep venous thrombosis in the left or right lower extremity. Dictated by: Cindy Rodriges M.D. on 08/05/2016 at 9:29 Cardiac Echo Impressions Echo Interpretation Summary by Dr. Ryan Ahumada on 08/04/2016: The left ventricle is normal in size. There is normal left ventricular wall thickness. The ejection fraction is estimated to be 35-40%. There are no focal wall motion abnormalities. The right ventricle is normal in size and function. There is mild mitral annular calcification. There is mild mitral regurgitation. The aortic valve is normal in structure and function. The left atrium is severely dilated. The right ventricular systolic pressure is estimated at 34 mmHg assuming a right atrial pressure of 3 mm Hg. There is no pericardial effusion. Compared to the previous study, the patient is now in atrial fibrillation and LV systolic function is worse. Assessment & Plan Patient is an 80 year-old female with a medical history that includes hypertension, sciatica, CHF, [place], atrial fibrillation, chronic anemia, asthma, and renal cancer s/p right nephrectomy who presented to the ED via EMS with bilateral buttocks pain (R>L) that radiated down her legs to her knees. Hospital day # 9 1. Atrial fibrillation with RVR, present on admission, just began warfarin for anticoagulation 2 days prior to admission. Active. - Amiodarone drip used for better control of heart rate. Discontinued 3/17. - Dr. Banks of cardiology was consulted and we appreciate his input. - Diltiazem discontinued 08/06/16. - Continue metoprolol succinate 100 mg BID. - Continue warfarin per pharmacy recommendations. Will need to consider a dose for discharge. - Continue telemetry. 2. Community acquired pneumonia possible aspiration pneumonia, present on admission, active. - Seen on x-ray and lumbar CT, which showed bilateral lobe pneumonia. No micro evidence to confirm. - Procalcitonin was 1.82, trending down to 0.3 yesterday. - Ceftriaxone and azithromycin stopped and switched to Zosyn for aspiration pneumonia coverage on 08/01/16. Day 9 of all antibiotics. - The patient has been discussed with Dr. Anderson. Repeat 2-view CXR ordered. We appreciate his recommendations. 3. Systolic congestive heart failure, compensated, present on admission, chronic. - Repeat echo shows worsened LV sytolic function compared to the previous Echo in 12/2013. The ejection fraction is estimated to be 35-40% (60-65% before). - Will need to continue beta ludin at d/c. - On losartan at home that will need to be continued once blood pressure is more stable. 4. Bilateral lower extremity pain, present on admission, chronic. - Venous U/S ruled out DVT. Likely muscle cramping. - Low Calcium and Potassium that improved today. Will continue to follow lytes and replenish as needed. 5. Dysphagia, chronic, present on admission. Active - Patient reports difficultly swallowing solids and has a palpable submandibular neck mass - Prior modified barium swallow imaging showed severe spontaneous gastroesophageal reflux - US neck showed heterogeneous solid mass with mild vascularity - Recommend follow up as an outpatient with fine needle biopsy of the mass 6. Hypothyroid, present on admission, chronic - TSH 0.381, mildly low but free T4 within normal limits - Continue levothyroxine 88 mcg. Dose decreased due to uncontrolled a. fib. - Will need outpatient lab follow up. 7. Chronic anemia, present on admission, stable. - Continue Ferrous sulfate 325 mg BID. - Continue to monitor CBC. 8. Acute on chronic kidney failure, present on admission, improved. - S/p right nephrectomy - Continue to monitor BMP. - Avoid nephrotoxic medications 9. Hypertension, chronic, stable. - Stop Isosorbide mononitrate 30mg per Cardiology's recommendation. Patient does not have ischemic heart disease by cardiac cath on 01/18/2014. - Furosemide and losartan were held since 08/04 as patient's blood pressure was low. Will consult with Cardiology before resuming losartan and furosemide. 10. Dyslipidemia, present on admission, chronic - Continue Atorvastatin 80 mg daily. 11. COPD, present on admission, chronic - DuoNebs Q6hrs PRN; albuterol inhalers Q4hrs PRN - Continue supplemental O2 with O2 goal 90-94%. Can titrate down O2 to meet these goals. - Plan for road test today without supplemental O2. 12. Depression, present on admission, chronic - Continue Citalopram 40mg daily. 13. History of GA, chronic, stable. - Note that QTc was 555 on admission. - Avoid QT prolongation drugs. - Cardiology reported that patient no longer needs to be taking Plavix. Plavix stopped 08/07/16. 14. Allergies, present on admission, chronic - Continued Zafirlukast 15. Acute on chronic pain, present on admission - Continued home tramadol PRN - Acetaminophen as needed for mild pain/fever/headache - Bowel regimen as needed & continued home dose of docusate - Antiemetic as needed Disposition: Anticipate discharge to home in the next 1-2 days. VTE Prophylaxis: Theraputic Anticoag with Warfarin VTE Mechanical Devices: Intermittant Pneumatic CD Resuscitation Status: DNR/DNI:Do Not Resuscitate/Intubate Attending Statement The patient was seen and examined together with Dr. Polanco on 08/07/2016 and I agree with the history, exam and plan as outlined in the note above. . Dariana Polanco DO Aug 07, 2016 12:09 Patel Oneill MD Aug 08, 2016 09:44
--- NOTE | 2016-08-07 15:13 | NUR ---
Social Work: Readiness for Discharge D: Pt discussed in am rounds. Pt is still not medically stable for discharge. Cardiology is following pt and adjusting meds. RESIDENT CARE AIDE met with pt at bedside to confirm discharge plan and assess for any unmet needs. Pt denies any at this time. Pt continues to be I during admission. EMR reviewed and no further needs identified at this time. A: Pt who is I at baseline. P: Anticipate pt to discharge home via POV when medically stable; RESIDENT CARE AIDE to continue to follow. [place]
--- NOTE | 2016-08-07 15:19 | PROG NOTE ---
[address] [address] PROGRESS NOTE PATIENT: DANITZA PUTNAM : 1935 MR#: [id number] ADMIT: 07/30/2016 JOB ID: [id number] DATE: FOLLOWUP NOTE: The patient looks well today. She states that her breathing is good. She continues to cough some and brings up a little bit of clear sputum, but she has had no fevers or chills. Her telemetry shows that the majority of the time, her heart rate is below 100, occasionally peaking up into the 100-110 range but she seems to be tolerating 100 mg of metoprolol succinate b.i.d. well and that seems to be doing a good job at this point in time with adequate rate control. She is on appropriate anticoagulation as well. Her chest x-ray today continues to show evidence of consolidation in the right lower and right mid lung field, which seems to be worsening since admission and I think probably needs to be looked into further. She is anxious to be discharged home. At this time, Cardiology will sign off. She should remain on 100 mg of metoprolol succinate in addition to her warfarin anticoagulation. I might recommend repeating a BNP to make sure that she does not have some atypical pulmonary congestion related to her ventricular dysfunction and atrial fibrillation, but it would be somewhat atypical. She should also then follow up in our office with Dr. Gilmore sometime in the next several weeks. Please let me know if any further assistance is needed.
--- NOTE | 2016-08-07 17:50 | NUR ---
Activity/O2 order to walk pt on RA and to monitor SpO2. Pre activity SpO2 95-97% on RA. During activity pt SpO2 87-92% on Ra, pt stating "a little SOB". HR up to 110-120s. pt walked about 70 feet with SBA, steady gait. made aware. No new orders at this time.
[2016-08-08] VITALS (10 sets, daily range): BP systolic 120–150; BP diastolic 83–96; PULSE 101–127; RESP 16–22; O2SAT 96–98
[2016-08-08 04:13] LABS: BASOPHILS % (AUTO) 0.8 % (0-3); EOSINOPHILS % (AUTO) 4.8 % (0-5); MONOCYTES % (AUTO) 6.3 % (4-12); Mean Corpuscular Hemoglobin 26.5 pg (27.0-35.0); Mean Corpuscular Volume 89.3 fL (81-100); NEUTROPHILS % (AUTO) 71.6 % (40-74); Platelet Count 330 bil/L (150-400)
[2016-08-08 04:33] LABS: INR 1.48 ratio
[2016-08-08 04:40] LABS: Magnesium 2.3 mg/dL (1.6-2.6); Phosphorus 2.8 mg/dL (2.5-4.9)
[2016-08-08] MEDS: ZAFIRLUKAST 20 MG PO SCH ×2 (08:07→19:27)
[2016-08-08] MEDS: Fluticasone 0.05% 15 Spray/2 Gm 16 Gm Nasal Spray NASAL SCH ×2 (08:17→19:27)
[2016-08-08] MEDS: MeTOProlol XL 50 mg ER24 Tablet PO SCH ×2 (08:17→19:27)
[2016-08-08] MEDS: Piperacillin-Tazo 3.375 Gm Inj 3.375 GM in Dextrose 5% Minibag Plus 50 ML IV SCH (08:17)
[2016-08-08] MEDS: Fluticasone-Salmeterol 500-50 Inhaler INHALATION SCH ×2 (08:30→19:27)
--- NOTE | 2016-08-08 11:51 | PCM.PHAPRO ---
Progress Date of Service: Aug 08, 2016 INR = 1.48, HCT = 31, PLTS 330. Pt continues on warfarin for afib. Goal INR 2-3. INR today subtherapeutic, likely from being held on 08/05 for supratherapeutic INR. Will give warfarin 3mg PO today. INRs ordered. Pharmacy will follow this patient's warfarin therapy. Date -Jul 5-Jul 6-Jul 7-Jul 8-Aug 04-Aug 05-Aug 06-Aug 07-Aug 08-Jul INR 1.39 2.76 3.07 2.46 2.09 2.56 3.65 3.03 2.01 1.48 INR change 1.37 0.31 -0.61 -0.37 0.47 1.09 -0.62 -1.02 -0.53 Warf Dose 5MG HOLD HOLD 2.5 MG 5 MG 3 HOLD 0.5 3 3 Phylicia Montes PharmD Aug 08, 2016 11:51
[2016-08-08] MEDS ORDERED: MeTOProlol XL 50 mg ER24 Tablet PO ONE (12:05)
--- NOTE | 2016-08-08 13:40 | PCM.PNMED ---
Subjective Date of Service Aug 08, 2016 Subjective Overnight: No acute event. SpO2 during activity decreased from 95-97% on RA to 87-92% RA. Patient complained of a little SOB, but otherwise did well. Tele Afib 90-100s at rest and HR up to 110-120s with activities. Today: patient reports mild fatigue and short of breath on exertion, but is overall improved than before. She continues to cough some and brings up a little bit of clear sputum, but she has had no fevers or chills. Her SpO2 is 97 % at room air at the time of examination. Her HR up to 130s this morning. Patient has no other complaint. Exam Vital Signs Vital Sign - Last Date Time Temp Pulse Resp B/P Pulse Ox O2 Delivery O2 Flow Rate FiO2 08/08/16 13:10 36.5 115 22 128/89 97 Room Air 08/08/16 08:20 1.50 Intake and Output 08/07/16 08/07/16 08/08/16 Cumulative From/Thru 15:00 23:00 07:00 07/30/16 04:36 - 08/08/16 06:23 Intake Total 770 ml 275 ml 90621 ml Output Total 550 ml 900 ml 90509 ml Balance 770 ml -550 ml -625 ml 1819 ml Intake Oral 770 ml 275 ml 02379 ml IV Total 2233 ml Output Urine Total 550 ml 900 ml 32234 ml Urine/Stool Mix 550 ml # Voids 9 # Bowel Movements 7 Exam General: Elderly female sitting in bedside chair and in no acute distress, well- developed, well-nourished, appropriately interactive HEENT: Normocephalic, atraumatic. Anicteric sclerae, moist conjunctivae, and no lid lag. Moist oral mucosa without thrush. Cardiovascular: Irregularly irregular rhythm without murmurs, rubs, or gallops appreciated Pulmonary: Scattered rales with mild expiratory wheeze noted, R>L. Normal respiratory effort with no use of accessory muscles. Abdomen: Bowel tones present. Soft, nontender, nondistended. No hepatosplenomegaly or masses appreciated. Extremities: Trace edema. No clubbing or cyanosis. Tender to palpation at the calves (chronic per the patient) Skin: Normal temperature, turgor, and texture; no rash, ulcers, or subcutaneous nodules appreciated. Neurological: Normal speech. Moving all extremities spontaneously. Psychiatric: Normal mood and affect. Alert and oriented to person, place, and time. IVs and Medications Medications Reviewed: Medications were reviewed in detail Lab and Diagnostics Result Diagram: 08/08/1631208/08/16312 X-Rays, CTs and MRIs X-RAY CHEST ONE VIEW, PORTABLE IMPRESSION: 1. Mild right lung base atelectasis versus pneumonia. 2. Cardiomegaly. Dictated by: Rosenda Black M.D. on 07/30/2016 at 7:43 CT LUMBAR SPINE WITHOUT CONTRAST IMPRESSION: 1. Multilevel degenerative disc and facet disease, which could be further assessed with MRI, if clinically indicated. 2. No fracture. 3. Bilateral lower lobe pneumonia. Dictated by: Rosenda Black M.D. on 07/30/2016 at 8:37 PROCEDURE: US SOFT TISSUE OF HEAD OR NECK SONOGRAM IMPRESSION: Nonspecific soft tissue heterogeneous solid mass with mild vascularity. Findings are nonspecific and neoplasm cannot be excluded. Recommend clinical correlation and if indicated sonographically directed fine needle aspiration could be performed for pathologic diagnosis. Approved by: Linda Seth M.D. on 08/03/2016 at 11:49 PROCEDURE: US VENOUS LEG DUPLEX BILATERAL IMPRESSION: No deep venous thrombosis in the left or right lower extremity. Dictated by: Cindy Rodriges M.D. on 08/05/2016 at 9:29 Cardiac Echo Impressions Echo Interpretation Summary by Dr. Ryan Ahumada on 08/04/2016: The left ventricle is normal in size. There is normal left ventricular wall thickness. The ejection fraction is estimated to be 35-40%. There are no focal wall motion abnormalities. The right ventricle is normal in size and function. There is mild mitral annular calcification. There is mild mitral regurgitation. The aortic valve is normal in structure and function. The left atrium is severely dilated. The right ventricular systolic pressure is estimated at 34 mmHg assuming a right atrial pressure of 3 mm Hg. There is no pericardial effusion. Compared to the previous study, the patient is now in atrial fibrillation and LV systolic function is worse. Assessment & Plan Patient is an 80 year-old female with a medical history that includes hypertension, sciatica, CHF, [place], atrial fibrillation, chronic anemia, asthma, and renal cancer s/p right nephrectomy who presented to the ED via EMS with bilateral buttocks pain (R>L) that radiated down her legs to her knees. Hospital day # 10. 1. Atrial fibrillation with RVR, present on admission, just began warfarin for anticoagulation 2 days prior to admission. Active. - Amiodarone drip used for better control of heart rate. Discontinued 08/04/16. - Dr. Banks of cardiology was consulted and we appreciate his input. Cardiology signed of on 08/07/16. - Diltiazem discontinued 08/06/16. - HR not well controlled so metoprolol succinate increased to 150 mg BID. The dose was discussed with Dr. Lux, who agreed with up titrating the Metoprolol until HR is under control. - Continue warfarin per pharmacy recommendations. INR subtherapeutic this morning (1.48). Will need to consider a dose for discharge. - Continue telemetry. 2. Community acquired pneumonia possible aspiration pneumonia, present on admission, active. - Seen on x-ray and lumbar CT, which showed bilateral lobe pneumonia. No micro evidence to confirm. - Procalcitonin was 1.82, trending down to 0.21. - Ceftriaxone and azithromycin stopped and switched to Zosyn for aspiration pneumonia coverage on 08/01/16. Will D/C Zosyn today 08/08/2016. Total of 10 days of all antibiotics. - The patient has been discussed with Dr. Anderson. Repeat 2-view CXR ordered on 08/07/16, which showed unchanged right pulmonary radiopacities suspicious for multifocal pneumonia. - We appreciate Dr. Anderson's recommendations. 3. Systolic congestive heart failure, compensated, present on admission, chronic. - Repeat echo shows worsened LV sytolic function compared to the previous Echo in 12/2013. The ejection fraction is estimated to be 35-40% (60-65% before). - Will need to continue beta ludin at d/c. - BP have been stable, thus will resume Losartan, but decreased the home dose to 25mg PO daily given normal BP. - No signs of fluid overload, thus, will continue to hold home Lasix. 4. Bilateral lower extremity pain, present on admission, chronic. - Venous U/S ruled out DVT. Likely muscle cramping. - Will continue to follow lytes and replenish as needed. 5. Dysphagia, chronic, present on admission. Active - Patient reports difficultly swallowing solids and has a palpable submandibular neck mass - Prior modified barium swallow imaging showed severe spontaneous gastroesophageal reflux - US neck showed heterogeneous solid mass with mild vascularity - Recommend follow up as an outpatient with fine needle biopsy of the mass 6. Hypothyroid, present on admission, chronic - TSH 0.381, mildly low but free T4 within normal limits - Continue levothyroxine 88 mcg. Dose decreased due to uncontrolled a. fib. - Will need outpatient lab follow up. 7. Chronic anemia, present on admission, stable. - Continue Ferrous sulfate 325 mg BID. - Continue to monitor CBC. 8. Acute on chronic kidney failure, present on admission, improved. - S/p right nephrectomy - Continue to monitor BMP. - Avoid nephrotoxic medications 9. Hypertension, chronic, stable. - Stop Isosorbide mononitrate 30mg per Cardiology's recommendation. Patient does not have ischemic heart disease by cardiac cath on 01/18/2014. - Furosemide and losartan were held since 08/04 as patient's blood pressure was low. - Resume Losartan 25mg daily (reduced from home dose of 50mg daily) 10. Dyslipidemia, present on admission, chronic - Continue Atorvastatin 80 mg daily. 11. COPD, present on admission, chronic - DuoNebs Q6hrs PRN; albuterol inhalers Q4hrs PRN - Continue supplemental O2 with O2 goal 90-94%. Can titrate down O2 to meet these goals. 12. Depression, present on admission, chronic - Continue Citalopram 40mg daily. 13. History of [place], chronic, stable. - Note that QTc was 555 on admission. - Avoid QT prolongation drugs. - Cardiology reported that patient no longer needs to be taking Plavix. Plavix stopped 08/07/16. 14. Allergies, present on admission, chronic - Continued Zafirlukast 15. Acute on chronic pain, present on admission - Continued home tramadol PRN - Acetaminophen as needed for mild pain/fever/headache - Bowel regimen as needed & continued home dose of docusate - Antiemetic as needed Disposition: Anticipate discharge to home in the next 1-2 days. Pain Evaluation: Adequate Pain Control VTE Prophylaxis: Theraputic Anticoag with Warfarin VTE Mechanical Devices: Intermittant Pneumatic CD Resuscitation Status: DNR/DNI:Do Not Resuscitate/Intubate Attending Statement The patient was seen and examined together with Dr. Alvarez on 08-08-16 and I agree with the history, exam and plan as outlined in the note above. Jasmyne Alvarez DO Aug 08, 2016 13:40 Elaina Soto MD Aug 09, 2016 16:19
--- NOTE | 2016-08-08 15:37 | PCM.CHPMED ---
Subjective Date of Service: Aug 08, 2016 Provider requesting consult: Patel Oneill MD Primary Physician: Admitting Physician: Marie Barker DO Primary Care Physician: Hill Lucio MD Attending Physician: Marie Barker DO Admit Status: From the Emergency Department, Full Admit Chief Complaint: Chief Complaint: Shortness of Breath. . History of Present Illness: Pulmonology Consultation Note: Attending Dr. Anderson History of present illness: Mayi Han is an 80-year-old female with a past medical history significant for asthma, frequent bronchitis, systolic congestive heart failure, and obstructive sleep apnea on BiPAP who presented to [facility] Emergency Department via EMS from a doctor's office for elevated pulse. She was found to be in atrial fibrillation with RVR on admission thought to be secondary to CAP. She also was experiencing bilateral buttock pain/cramps and a nonproductive cough that later was initially productive of "blood-tinged/brown sputum" that is now clear in color. She endorses that her cough is chronic in nature but that 1-2 days into her admission it worsened. She does not appreciate any timing or exposures. She denies fever but endorses chills. She denies shortness of breath, nasal congestion, and sore throat. She has had pneumonia in the past the last time being 1991. She has a history of asthma and describes exacerbations with chemical solvents. She is not on oxygen at home. She does however, use BiPAP whenever she is sleeping for SIDDHARTHA and questionable OHS. She also uses Advair twice daily and occasionally her albuterol inhaler approximately once every 6 months. She does have a history of dysphagia and aspiration x approximately 2 years. She has a history of systolic congestive heart failure which is worsened. Exposure history: She was born and raised in [facility] in [place]. She states she has lived all over the state of [place]. She has also lived in [place], [place], and [place]. She spent a significant time in a [place], [place] with her when he was stationed at a [employer]. She has also spent some time in [place] vacationing. She grew up on a farm where her father farmed cotton and alfalfa in [place]. 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 She has no real exposure to livestock. She reports having various dogs during her childhood and a poodle in her adult life. She and her would travel to [place] by boat every year for many years. She denies history of tuberculosis or exposure to tuberculosis. However, her aunt had tuberculosis and at the age of 21 and her uncle had tuberculosis and was treated and survived. She was not around her uncle until later in life. She reports she has pulmonary nodules from the [facility]. Her hobbies include crafts and selling. She denies exposure to dust, sand, or molds. She has a significant smoking history of 30 pack years. . Review of Systems: A comprehensive review of systems was conducted with the patient and found to be negative except as above in the History of Present Illness. . PMH Past Medical History 1. Asthma. 2. PR. 3. Hypertension. 4. Renal cancer. 5. Sciatica. 6. Systolic congestive heart failure. 7. Chronic normocytic anemia. 8. GERD. 9. Hypothyroidism. 10. Obstructive sleep apnea on BiPAP. 11. Seasonal allergies. 12. History of frequent bronchitis and prior pneumonia. . Surgical History 1. Right nephrectomy. 2. Hand repair 5. 3. Appendectomy. 4. 2. 5. CONSTANCE. 6. Bilateral TKA. . Home Medications From medication reconciliation: Citalopram 40 mg daily. Clopidogrel 75 mg daily. Diltiazem ER 240 mg daily. Levothyroxine 112 mcg daily. Warfarin . Aspirin 81 mg daily. Ferrous sulfate 325 mg twice a day. Advair one puff twice a day. Naproxen 220 mg as needed for pain. Zafirlukast 20 mg twice a day. Tramadol 100 mg twice a day as needed for muscle spasm. Trazodone 100 mg daily at bedtime. Vitamin B complex daily. Combivent inhaler as needed for shortness of breath. Docusate 100 mg daily. . Allergies: Coded Allergies: morphine (Verified Allergy, Severe, hallucinations/parinoid, 10/23/12) iodine (Verified Allergy, Mild, swelling and redness, 10/23/12) neomycin (Verified Allergy, Unknown, 01/16/14) Uncoded Allergies: TAPE (Allergy, Severe, BLISTERS, 10/23/12) Family History Family History No family history of pulmonary issues. . Social History Hx Alcohol Use: NoHx Substance Use: NoHx Tobacco Use: Yes Smoking Status: Former Smoker (1 PPD 25-30 years, quit 1994) Living Arrangement: with Family (son lives in apartment above hers) Exam Vital Signs Vital Sign - Last Date Time Temp Pulse Resp B/P Pulse Ox O2 Delivery O2 Flow Rate FiO2 08/08/16 13:10 36.5 115 22 128/89 97 Room Air 08/08/16 08:20 1.50 Intake and Output 08/07/16 08/07/16 08/08/16 Cumulative From/Thru 15:00 23:00 07:00 07/30/16 04:36 - 08/08/16 06:23 Intake Total 770 ml 275 ml 82960 ml Output Total 550 ml 900 ml 48737 ml Balance 770 ml -550 ml -625 ml 1819 ml Intake Oral 770 ml 275 ml 97390 ml IV Total 2233 ml Output Urine Total 550 ml 900 ml 77734 ml Urine/Stool Mix 550 ml # Voids 9 # Bowel Movements 7 General: Alert, Oriented X3, Cooperative, No Acute Distress Head: Normal Eyes: PERRLA, EOMI, Scleral Anicteric Nose: Mucous Membr Moist/[place] Mouth: Mouth Normal, Other Chest & Lungs: Crackles (fine bibasilar crackles R>L, otherwise clear to auscultation, no wheezes or rhonchi) Cardiovascular: Regular Rate/Rhythm, Normal S1, Normal S2, No Murmurs/Rubs/ Gallops Pulses: NL carotid, radial, femoral, DP, PT Abdomen: Non-tender, Non-distended, Normoactive bowel tones, Soft, Obese Extremities: Edema (non-pitting edema R>L), Other (vertical surgical scars across bilateral knees ) Neurological: Grossly Neurologically Intact Lab and Diagnostics Labs Item Value Date Time Calcium Level 7.8 mg/dL L 08/08/16312 Phosphorus Level 2.8 mg/dL 08/08/16312 Magnesium Level 2.3 mg/dL 08/08/16312 Microbiology: Sputum culture grew light normal krista. Respiratory viral PCR negative. Blood culture 2 shows no growth after 5 days. Strep pneumonia and legionella urine antigens negative. MRSA screen negative. . Result Diagram: 08/08/1631208/08/16312 X-Rays, CTs and MRIs X-RAY CHEST, TWO VIEWS IMPRESSION: 1. Unchanged right pulmonary radiopacities suspicious for multifocal pneumonia. Short interval followup is recommended to ensure resolution of this finding and exclude underlying pulmonary pathology. Dictated by: Linda Seth M.D. on 08/07/2016 at 11:02 Approved by: Linda Seth M.D. on 08/07/2016 at 11:03 US VENOUS LEG DUPLEX BILATERAL IMPRESSION: No deep venous thrombosis in the left or right lower extremity. Dictated by: Cindy Rodriges M.D. on 08/05/2016 at 9:29 US SOFT TISSUE OF HEAD OR NECK SONOGRAM IMPRESSION: Nonspecific soft tissue heterogeneous solid mass with mild vascularity. Findings are nonspecific and neoplasm cannot be excluded. Recommend clinical correlation and if indicated sonographically directed fine needle aspiration could be performed for pathologic diagnosis. Dictated by: Quincy CALLOWAY Interpreted: Linda Seth MD on 08/03/2016 at 10: 01 Approved by: Linda Seth M.D. on 08/03/2016 at 11:49 X-RAY BARIUM SWALLOW WITH FOOD & VIDEOGRAPHY IMPRESSION: Silent tracheobronchial aspiration. Dictated by: Quincy CALLOWAY Interpreted: Caity Bingham MD on 08/01/2016 at 14:42 Approved by: Caity Bingham MD, PhD on 08/01/2016 at 16:37 CT LUMBAR SPINE WITHOUT CONTRAST IMPRESSION: 1. Multilevel degenerative disc and facet disease, which could be further assessed with MRI, if clinically indicated. 2. No fracture. 3. Bilateral lower lobe pneumonia. Dictated by: Rosenda Black M.D. on 07/30/2016 at 8:37 X-RAY CHEST ONE VIEW, PORTABLE IMPRESSION: 1. Mild right lung base atelectasis versus pneumonia. 2. Cardiomegaly. Dictated by: Rosenda Black M.D. on 07/30/2016 at 7:43 . Additional Diagnostics: Echocardiogram Interpretation Summary: The left ventricle is normal in size. There is normal left ventricular wall thickness. The ejection fraction is estimated to be 35-40%. There are no focal wall motion abnormalities. The right ventricle is normal in size and function. There is mild mitral annular calcification. There is mild mitral regurgitation. The aortic valve is normal in structure and function. The left atrium is severely dilated. The right ventricular systolic pressure is estimated at 34 mmHg assuming a right atrial pressure of 3 mm Hg. There is no pericardial effusion. Compared to the previous study, the patient is now in atrial fibrillation and LV systolic function is worse. Reading Physician:05:13 PM . Assessment & Plan Assessment Mayi Han is an 80-year-old female with a past medical history significant for asthma, frequent bronchitis, systolic congestive heart failure, and obstructive sleep apnea on BiPAP who presented to [facility] Emergency Department via EMS from a doctor's office for elevated pulse. Assessment: 1. Community-acquired and aspiration pneumonia, present on admission. Active. Impression: The patient presented with elevated pulse, bilateral buttock pain/cramping, and relatively nonproductive cough. She was febrile upon admission. She has a very mild leukocytosis that has now resolved. She reports that her cough is chronic in nature, however, several days into admission it worsened. She denies fevers but endorses severe chills. She was given ceftriaxone and azithromycin for several days and later transitioned to Zosyn for proven silent aspiration on modified barium swallow and probable aspiration pneumonia. She was found to be in atrial fibrillation with RVR on admission thought to be secondary to CAP. She has a history of asthma and reports exacerbations with chemical solvents. She has a significant exposure history including [place] with pulmonary nodules on previous radiographs and exposure to a family member with treated tuberculosis. She has a significant smoking history of 30 pack years. She also has significant systolic congestive heart failure with an EF of 35% and obstructive sleep apnea with questionable OHS on BiPAP. Throughout her hospitalization her cough has become productive with "brown/blood-tinged " sputum initially and now resolving with clear sputum. She reports that she feels significantly improved and her airways are more open. She denies shortness of breath. Repeat chest x-ray shows minimal interval improvement. Microbiology workup has been negative to date. Differential diagnosis for pulmonary infiltrates is vast and includes anything from Streptococcus pneumonia to bronchogenic carcinoma. She has a history of systolic congestive heart failure which is worsened on recent echocardiogram and is likely partly contributing. Recommendations: 1. Discontinue Zosyn as patient has likely received an adequate course of antibiotic therapy. 2. Continue speech therapy for laryngeal muscle strengthening and aspiration awareness. 3. Consider outpatient speech therapy and possible prophylactic antibiotic therapy at the discretion of her PCP if she continues to have recurrent aspiration pneumonia. 4. Continue ICS and bronchodilator therapy for asthma. 5. Continue BiPAP at night while sleeping and with daytime naps. 6. Patient appears to be clinically improving and recommend continuing to monitor while in the hospital. Patient should receive a follow-up chest x-ray in 6 weeks as an outpatient to monitor for resolution. Thank you for this most interesting consult. We will continue to follow along with you. . Problems: Pain Evaluation: Adequate Pain Control VTE Prophylaxis: Theraputic Anticoag with Warfarin VTE Mechanical Devices: Intermittant Pneumatic CD Resuscitation Status: DNR/DNI:Do Not Resuscitate/Intubate Attending Statement The patient was seen and examined together with Dr. Hester on 08/08/2016 and I agree with the history, exam and plan as outlined in the note above. Magda Hester DO Aug 08, 2016 15:37 Grey Anderson MD Aug 10, 2016 11:18
--- NOTE | 2016-08-08 18:38 | NUR ---
Tele/Malaise Tele AFIB 90s-110s, no reports of chest pain/pressure/discomfort. Resting HR trending up slightly to 110s-120s.Throughout shift patient has reported intermittent, short lived episodes of SOB-- typically after getting up to the BR, MD aware. SPO2 on RA mid to high 90s, SPO2 spot checks after ambulation show 92%. Nebs PRN. No reports of n/v/d/c or abdominal pain, decreased PO intake than recently per patient. Per patient soft very dark brown stool yesterday -- taking PO iron, stool softener withheld per patient request. Alert and oriented x3, GRAY, reports full sensation, reports generalized fatigue/malaise.
[2016-08-09] VITALS (8 sets, daily range): BP systolic 112–159; BP diastolic 67–84; PULSE 92–118; RESP 16–20; O2SAT 93–99
[2016-08-09 04:08] LABS: BASOPHILS % (AUTO) 1.1 % (0-3); EOSINOPHILS % (AUTO) 1.9 % (0-5); MONOCYTES % (AUTO) 6.9 % (4-12); Mean Corpuscular Hemoglobin 26.7 pg (27.0-35.0); Mean Corpuscular Volume 88.6 fL (81-100); NEUTROPHILS % (AUTO) 69.9 % (40-74); Platelet Count 359 bil/L (150-400)
[2016-08-09 04:16] LABS: INR 1.32 ratio
[2016-08-09 04:39] LABS: Magnesium 2.4 mg/dL (1.6-2.6)
--- NOTE | 2016-08-09 05:21 | NUR ---
Cardiac: Tele Afib 130s at start of shift. 150mg PO Metoprolol given as ordered. HR did decrease to 90-low 100s with rest. with activity HR does increase to 120s. Pt sleeping intermittently. VSS. Care ongoing.
[2016-08-09] MEDS ORDERED: MeTOProlol XL 50 mg ER24 Tablet PO ONE (08:00)
[2016-08-09] MEDS: ZAFIRLUKAST 20 MG PO SCH ×2 (08:30→19:43)
[2016-08-09] MEDS: MeTOProlol XL 50 mg ER24 Tablet PO SCH ×2 (08:42→19:43)
[2016-08-09] MEDS: Fluticasone 0.05% 15 Spray/2 Gm 16 Gm Nasal Spray NASAL SCH ×2 (08:43→19:41)
[2016-08-09] MEDS: Fluticasone-Salmeterol 500-50 Inhaler INHALATION SCH ×2 (08:43→19:41)
--- NOTE | 2016-08-09 10:14 | NUR ---
[facility] Signed [id number]
--- NOTE | 2016-08-09 17:49 | PCM.PNMED ---
Subjective Date of Service Aug 09, 2016 Subjective Overnight: Patient reported shortly episodes of shortness of breath, especially after getting to the bathroom. SPO2 on RA to high 90s and SPO2 spot checks after ambulation showed 92%. Tele AFIB 90s-110s at rest, no reports of chest pain/pressure/discomfort. With activity HR does increase to 120s-130s. No other acute event. Today: Patient reports to feel better with no shortness of breath. She admits to generalized fatigue and weakness, but denies any chest pain or shortness of breath. Her cough has improved as well. She has no other concerns. Exam Vital Signs Vital Sign - Last Date Time Temp Pulse Resp B/P Pulse Ox O2 Delivery O2 Flow Rate FiO2 08/09/16 03:22 36.6 118 20 159/77 99 Nasal Cannula 2.00 Intake and Output 08/08/16 08/08/16 08/09/16 Cumulative From/Thru 15:00 23:00 07:00 07/30/16 04:36 - 08/09/16 05:41 Intake Total 936 ml 300 ml 44516 ml Output Total 1625 ml 750 ml 69680 ml Balance -689 ml -450 ml 680 ml Intake Oral 880 ml 300 ml 96582 ml IV Total 56 ml 2289 ml Output Urine Total 1625 ml 750 ml 83625 ml Urine/Stool Mix 550 ml # Voids 9 # Bowel Movements 3 0 10 Exam General: Elderly female sitting in bedside chair and in no acute distress, well- developed, well-nourished, appropriately interactive HEENT: Normocephalic, atraumatic. Anicteric sclerae, moist conjunctivae, and no lid lag. Moist oral mucosa without thrush. Cardiovascular: Irregularly irregular rhythm without murmurs, rubs, or gallops appreciated Pulmonary: Scattered rales with no wheezing noted. Normal respiratory effort with no use of accessory muscles. Abdomen: Bowel tones present. Soft, nontender, nondistended. No hepatosplenomegaly or masses appreciated. Extremities: Trace edema. No clubbing or cyanosis. Tender to palpation at the calves (chronic per the patient) Skin: Normal temperature, turgor, and texture; no rash, ulcers, or subcutaneous nodules appreciated. Neurological: Normal speech. Moving all extremities spontaneously. Psychiatric: Normal mood and affect. Alert and oriented to person, place, and time. IVs and Medications Medications Reviewed: Medications were reviewed in detail Lab and Diagnostics Result Diagram: 08/09/16 0305 08/09/16 0305 X-Rays, CTs and MRIs X-RAY CHEST ONE VIEW, PORTABLE IMPRESSION: 1. Mild right lung base atelectasis versus pneumonia. 2. Cardiomegaly. Dictated by: Rosenda Black M.D. on 07/30/2016 at 7:43 CT LUMBAR SPINE WITHOUT CONTRAST IMPRESSION: 1. Multilevel degenerative disc and facet disease, which could be further assessed with MRI, if clinically indicated. 2. No fracture. 3. Bilateral lower lobe pneumonia. Dictated by: Rosenda Black M.D. on 07/30/2016 at 8:37 PROCEDURE: US SOFT TISSUE OF HEAD OR NECK SONOGRAM IMPRESSION: Nonspecific soft tissue heterogeneous solid mass with mild vascularity. Findings are nonspecific and neoplasm cannot be excluded. Recommend clinical correlation and if indicated sonographically directed fine needle aspiration could be performed for pathologic diagnosis. Approved by: Linda Seth M.D. on 08/03/2016 at 11:49 PROCEDURE: US VENOUS LEG DUPLEX BILATERAL IMPRESSION: No deep venous thrombosis in the left or right lower extremity. Dictated by: Cindy Rodriges M.D. on 08/05/2016 at 9:29 Cardiac Echo Impressions Echo Interpretation Summary by Dr. Ryan Ahumada on 08/04/2016: The left ventricle is normal in size. There is normal left ventricular wall thickness. The ejection fraction is estimated to be 35-40%. There are no focal wall motion abnormalities. The right ventricle is normal in size and function. There is mild mitral annular calcification. There is mild mitral regurgitation. The aortic valve is normal in structure and function. The left atrium is severely dilated. The right ventricular systolic pressure is estimated at 34 mmHg assuming a right atrial pressure of 3 mm Hg. There is no pericardial effusion. Compared to the previous study, the patient is now in atrial fibrillation and LV systolic function is worse. Assessment & Plan Patient is an 80 year-old female with a medical history that includes hypertension, sciatica, CHF, [place], atrial fibrillation, chronic anemia, asthma, and renal cancer s/p right nephrectomy who presented to the ED via EMS with bilateral buttocks pain (R>L) that radiated down her legs to her knees. Hospital day # 11. 1. Atrial fibrillation with RVR, present on admission, just began warfarin for anticoagulation 2 days prior to admission. Active. - Amiodarone drip used for better control of heart rate. Discontinued 08/04/16. - Diltiazem discontinued 08/06/16. - Dr. Banks of cardiology was consulted and we appreciate his input. Cardiology signed of on 08/07/16. - HR not well controlled so metoprolol succinate increased to 200 mg BID. The dose was discussed with Dr. Lux, who agreed with up titrating the Metoprolol until HR is under control. - Discussed the case of Enrique from cardiology and asked her to help with rate control as she saw the patient a few days ago. - Continue warfarin per pharmacy recommendations. INR subtherapeutic this morning (1.32). Will need to consider a dose for discharge. - Continue telemetry. 2. Community acquired pneumonia possible aspiration pneumonia, present on admission, active. - Seen on x-ray and lumbar CT, which showed bilateral lobe pneumonia. No micro evidence to confirm. - Procalcitonin was 1.82, trending down to 0.17. - Ceftriaxone and azithromycin stopped and switched to Zosyn for aspiration pneumonia coverage on 08/01/16. D/C Zosyn on 08/08/2016. Total of 10 days of all antibiotics. - Repeat 2-view CXR ordered on 08/07/16, which showed unchanged right pulmonary radiopacities suspicious for multifocal pneumonia. - The patient has been discussed with Dr. Anderson. We appreciate Dr. Anderson 's recommendations. - Will likely need follow up CXR in 6 weeks as out patient. 3. Systolic congestive heart failure, compensated, present on admission, chronic. - Repeat echo shows worsened LV sytolic function compared to the previous Echo in 12/2013. The ejection fraction is estimated to be 35-40% (60-65% before). - Will need to continue beta ludin at d/c. - BP have been stable, thus will resume Losartan, but decreased the home dose to 25mg PO daily given normal BP. - No signs of fluid overload and BP has been within normal limit, thus, will not continue home Lasix. 4. Bilateral lower extremity pain, present on admission, chronic. - Venous U/S ruled out DVT. Likely muscle cramping. - Will continue to follow electrolytes and replenish as needed. 5. Dysphagia, chronic, present on admission. Active - Patient reports difficultly swallowing solids and has a palpable submandibular neck mass - Prior modified barium swallow imaging showed severe spontaneous gastroesophageal reflux - US neck showed heterogeneous solid mass with mild vascularity - Recommend follow up as an outpatient with fine needle biopsy of the mass 6. Hypothyroid, present on admission, chronic - TSH 0.381, mildly low but free T4 within normal limits - Continue levothyroxine 88 mcg. Dose decreased due to uncontrolled a. fib. - Will need outpatient lab follow up. 7. Chronic anemia, present on admission, stable. - Continue Ferrous sulfate 325 mg BID. - Continue to monitor CBC. 8. Acute on chronic kidney failure, present on admission, improved. - S/p right nephrectomy - Continue to monitor BMP. - Avoid nephrotoxic medications 9. Hypertension, chronic, stable. - Stop Isosorbide mononitrate 30mg per Cardiology's recommendation. Patient does not have ischemic heart disease by cardiac cath on 01/18/2014. - Furosemide and losartan were held since 08/04 as patient's blood pressure was low. - Resume Losartan 25mg daily (reduced from home dose of 50mg daily) 10. Dyslipidemia, present on admission, chronic - Continue Atorvastatin 80 mg daily. 11. COPD, present on admission, chronic - DuoNebs Q6hrs PRN; albuterol inhalers Q4hrs PRN - Continue supplemental O2 with O2 goal 90-94%. Can titrate down O2 to meet these goals. 12. Depression, present on admission, chronic - Continue Citalopram 40mg daily. 13. History of [place], chronic, stable. - Note that QTc was 555 on admission. - Avoid QT prolongation drugs. - Cardiology reported that patient no longer needs to be taking Plavix. Plavix stopped 08/07/16. 14. Allergies, present on admission, chronic - Continued Zafirlukast 15. Acute on chronic pain, present on admission - Continued home tramadol PRN - Acetaminophen as needed for mild pain/fever/headache - Bowel regimen as needed & continued home dose of docusate - Antiemetic as needed Disposition: Anticipate discharge to home in the next 1-2 days. Pain Evaluation: Adequate Pain Control VTE Prophylaxis: Theraputic Anticoag with Warfarin VTE Mechanical Devices: Intermittant Pneumatic CD Resuscitation Status: DNR/DNI:Do Not Resuscitate/Intubate Attending Statement The patient was seen and examined together with Dr. Alvarez on 08-09-16 and I agree with the history, exam and plan as outlined in the note above. Jasmyne Alvarez DO Aug 09, 2016 08:05 Elaina Soto MD Aug 10, 2016 12:21
--- NOTE | 2016-08-09 17:49 | PCM.PNMED ---
Subjective Date of Service Aug 09, 2016 Subjective Pulmonology Progress Note: Attending Dr. Justin See Guille is an 80-year-old female with a past medical history significant for asthma, frequent bronchitis, systolic congestive heart failure, and obstructive sleep apnea on BiPAP who presented to [facility] Emergency Department via EMS from a doctor's office for elevated pulse and was found to be in atrial fibrillation with RVR. She is now being treated for community acquired and aspiration pneumonia. Hospital day #2. Overnight: There were no acute events. Telemetry overnight: Atrial fibrillation , heart rate average low 100's with burst up to 120 and no other ectopy. The patient is resting in bed comfortably and in no acute distress. She is now off oxygen completely and saturating well at room air. She denies headache, rhinitis, sore throat, cough, shortness of breath, chest pain, abdominal pain, nausea, vomiting, fever, dysuria, diarrhea or constipation. She does endorse chills which are improving. She is voiding and eliminating without difficulty. She is up ambulating with minimal assistance. . Exam Vital Signs Vital Sign - Last Date Time Temp Pulse Resp B/P Pulse Ox O2 Delivery O2 Flow Rate FiO2 08/09/16 15:20 36.9 112 16 122/67 95 Room Air 08/09/16 03:22 2.00 Intake and Output 08/08/16 08/08/16 08/09/16 Cumulative From/Thru 15:00 23:00 07:00 07/30/16 04:36 - 08/09/16 05:41 Intake Total 936 ml 300 ml 74384 ml Output Total 1625 ml 750 ml 78195 ml Balance -689 ml -450 ml 680 ml Intake Oral 880 ml 300 ml 21076 ml IV Total 56 ml 2289 ml Output Urine Total 1625 ml 750 ml 56748 ml Urine/Stool Mix 550 ml # Voids 9 # Bowel Movements 3 0 10 Exam General: Elderly female lying in bed in no acute distress, well-developed, well- nourished, appropriately interactive. HEENT: Normocephalic, atraumatic. External ears without defect. Pupils equal, round, and reactive to light. Anicteric sclerae, moist conjunctivae, and no lid lag. Oropharynx free of erythema and cobble stoning with moist mucosa. Neck: Supple with full range of motion. No jugular venous distension. No bruits. No lymphadenopathy or thyromegaly. Cardiovascular: Regular rate and rhythm with no murmurs, rubs, or gallops appreciated Pulmonary: Fine bibasilar crackles R>L otherwise clear to auscultation. No wheezes or rhonchi. Normal respiratory effort with no use of accessory muscles. Abdomen: Soft, obese, nontender, nondistended, bowel sounds present. No hepatosplenomegaly or masses appreciated. Extremities: No clubbing or cyanosis. Non-pitting edema R>L lower extremities. Vertical surgical scars across bilateral knees. Normal carotid, radial, femoral , DP, PT. Skin: Normal temperature, turgor, and texture; no rash, ulcers, or subcutaneous nodules appreciated. Neurological: Cranial nerves grossly intact. Psychiatric: Normal mood and affect. Alert and oriented to person, place, and time. . IVs and Medications Medications Reviewed: Medications were reviewed in detail Lab and Diagnostics Item Value Date Time Calcium Level 7.8 mg/dL L 08/09/16304 Magnesium Level 2.4 mg/dL 08/09/16 030 Total Bilirubin 0.2 mg/dL 08/09/16 030 Aspartate Amino Transf (AST/SGOT) 29 U/L 08/09/16 030 Alanine Aminotransferase (ALT/SGPT) 14 U/L 08/09/16 030 Alkaline Phosphatase 73 U/L 08/09/16 030 Total Protein 5.9 g/dL L 08/09/16 030 Albumin 2.6 g/dL L 08/09/16 030 Procalcitonin 0.17 ng/mL H 08/09/16 030 Result Diagram: 08/09/16 03008/09/16 030 Microbiology Sputum culture grew light normal krista. Respiratory viral PCR negative. Blood culture 2 shows no growth after 5 days. Strep pneumonia and legionella urine antigens negative. MRSA screen negative. . X-Rays, CTs and MRIs X-RAY CHEST, TWO VIEWS IMPRESSION: 1. Unchanged right pulmonary radiopacities suspicious for multifocal pneumonia. Short interval followup is recommended to ensure resolution of this finding and exclude underlying pulmonary pathology. Dictated by: Linda Seth M.D. on 08/07/2016 at 11:02 Approved by: Linda Seth M.D. on 08/07/2016 at 11:03 US VENOUS LEG DUPLEX BILATERAL IMPRESSION: No deep venous thrombosis in the left or right lower extremity. Dictated by: Cindy Rodriges M.D. on 08/05/2016 at 9:29 US SOFT TISSUE OF HEAD OR NECK SONOGRAM IMPRESSION: Nonspecific soft tissue heterogeneous solid mass with mild vascularity. Findings are nonspecific and neoplasm cannot be excluded. Recommend clinical correlation and if indicated sonographically directed fine needle aspiration could be performed for pathologic diagnosis. Dictated by: Quincy CALLOWAY Interpreted: Linda Seth MD on 08/03/2016 at 10: 01 Approved by: Linda Seth M.D. on 08/03/2016 at 11:49 X-RAY BARIUM SWALLOW WITH FOOD & VIDEOGRAPHY IMPRESSION: Silent tracheobronchial aspiration. Dictated by: Quincy CALLOWAY Interpreted: Caity Bingham MD on 08/01/2016 at 14:42 Approved by: Caity Bingham MD, PhD on 08/01/2016 at 16:37 CT LUMBAR SPINE WITHOUT CONTRAST IMPRESSION: 1. Multilevel degenerative disc and facet disease, which could be further assessed with MRI, if clinically indicated. 2. No fracture. 3. Bilateral lower lobe pneumonia. Dictated by: Rosenda Black M.D. on 07/30/2016 at 8:37 X-RAY CHEST ONE VIEW, PORTABLE IMPRESSION: 1. Mild right lung base atelectasis versus pneumonia. 2. Cardiomegaly. Dictated by: Rosenda Black M.D. on 07/30/2016 at 7:43 . Cardiac Echo Impressions Echocardiogram Interpretation Summary: The left ventricle is normal in size. There is normal left ventricular wall thickness. The ejection fraction is estimated to be 35-40%. There are no focal wall motion abnormalities. The right ventricle is normal in size and function. There is mild mitral annular calcification. There is mild mitral regurgitation. The aortic valve is normal in structure and function. The left atrium is severely dilated. The right ventricular systolic pressure is estimated at 34 mmHg assuming a right atrial pressure of 3 mm Hg. There is no pericardial effusion. Compared to the previous study, the patient is now in atrial fibrillation and LV systolic function is worse. Reading Physician:05:13 PM . Assessment & Plan Mayi Hna is an 80-year-old female with a past medical history significant for asthma, frequent bronchitis, systolic congestive heart failure, and obstructive sleep apnea on BiPAP who presented to [facility] Emergency Department via EMS from a doctor's office for elevated pulse. Hospital day #2. Assessment: 1. Community-acquired and aspiration pneumonia, present on admission. Active. Impression: The patient presented with elevated pulse, bilateral buttock pain/cramping, and relatively nonproductive cough. She was febrile upon admission. She has a very mild leukocytosis that has now resolved. She reports that her cough is chronic in nature, however, several days into admission it worsened. She denies fevers but endorses severe chills. She was given ceftriaxone and azithromycin for several days and later transitioned to Zosyn for proven silent aspiration on modified barium swallow and probable aspiration pneumonia. She was found to be in atrial fibrillation with RVR on admission thought to be secondary to CAP. She has a history of asthma and reports exacerbations with chemical solvents. She has a significant exposure history including [place] fever with pulmonary nodules on previous radiographs and exposure to a family member with treated tuberculosis. She has a significant smoking history of 30 pack years. She also has significant systolic congestive heart failure with an EF of 35% and obstructive sleep apnea with questionable OHS on BiPAP. Throughout her hospitalization her cough has become productive with "brown/blood-tinged " sputum initially and now resolving with clear sputum. She reports that she feels significantly improved and her airways are more open. She denies shortness of breath. Repeat chest x-ray shows minimal interval improvement. Microbiology workup has been negative to date. Differential diagnosis for pulmonary infiltrates is vast and includes anything from Streptococcus pneumonia to bronchogenic carcinoma. She has a history of systolic congestive heart failure which is worsened on recent echocardiogram and is likely partly contributing. Recommendations: 1. Repeat chest xray in the morning. 2. Continue speech therapy for laryngeal muscle strengthening and aspiration awareness. 3. Consider outpatient speech therapy and possible prophylactic antibiotic therapy at the discretion of her PCP if she continues to have recurrent aspiration pneumonia. 4. Continue ICS and bronchodilator therapy for asthma. 5. Continue BiPAP at night while sleeping and with daytime naps. 6. Patient appears to be clinically improving and recommend continuing to monitor while in the hospital. Patient should receive a follow-up chest x-ray in 6 weeks as an outpatient to monitor for resolution. Thank you for this most interesting consult. We will sign off at this time but if there are any further questions feel free to contact us at anytime. . VTE Prophylaxis: Theraputic Anticoag with Warfarin VTE Mechanical Devices: Intermittant Pneumatic CD Resuscitation Status: DNR/DNI:Do Not Resuscitate/Intubate Attending Statement The patient was seen and examined together with Dr. Hester on 08/09/2016 and I agree with the history, exam and plan as outlined in the note above. Magda Hester DO Aug 09, 2016 17:49 Grey Anderson MD Aug 10, 2016 11:27 low. - Resume Losartan 25mg daily (reduced from home dose of 50mg daily) 10. Dyslipidemia, present on admission, chronic - Continue Atorvastatin 80 mg daily. 11. COPD, present on admission, chronic - DuoNebs Q6hrs PRN; albuterol inhalers Q4hrs PRN - Continue supplemental O2 with O2 goal 90-94%. Can titrate down O2 to meet these goals. 12. Depression, present on admission, chronic - Continue Citalopram 40mg daily. 13. History of [place], chronic, stable. - Note that QTc was 555 on admission. - Avoid QT prolongation drugs. - Cardiology reported that patient no longer needs to be taking Plavix. Plavix stopped 08/07/16. 14. Allergies, present on admission, chronic - Continued Zafirlukast 15. Acute on chronic pain, present on admission - Continued home tramadol PRN - Acetaminophen as needed for mild pain/fever/headache - Bowel regimen as needed & continued home dose of docusate - Antiemetic as needed Disposition: Anticipate discharge to home in the next 1-2 days. VTE Prophylaxis: Theraputic Anticoag with Warfarin VTE Mechanical Devices: Intermittant Pneumatic CD Resuscitation Status: DNR/DNI:Do Not Resuscitate/Intubate Magda Hester DO Aug 09, 2016 17:49
--- NOTE | 2016-08-09 18:21 | NUR ---
Tele Patient remains in Afib with rate in the 100s-120s, rate spikes to the 130s with activity.
--- NOTE | 2016-08-09 18:32 | PROG NOTE ---
[address] [address] CARDIOLOGY PROGRESS NOTE PATIENT: DANITZA PUTNAM : 1935 MR#: [id number] ADMIT: 07/30/2016 JOB ID: [id number] DATE OF SERVICE: 08/09/2016 CARDIOLOGY PROGRESS NOTE SUBJECTIVE: This is a very pleasant, 80-year-old lady with recently diagnosed atrial fibrillation with RVR, started to be anticoagulated with warfarin, who on July 30, 2016, was admitted to [facility] and diagnosed with community-acquired pneumonia. For better control of AFib with RVR on admission she was started on amiodarone drip. She also was on diltiazem and metoprolol. Heart rate got better controlled and eventually her amiodarone was discontinued. She was weaned out from diltiazem. She was switched from metoprolol tartrate to metoprolol succinate and dose was up-titrated. Currently she is on metoprolol succinate 200 mg twice a day. She also has a history of coronary artery disease with non-STEMI in 2013 and after that time cardiac cath showed slow filling in distal LAD and 1st principal diagonal had 50% stenosis. ECHO from 2014 showed that her left ventricular ejection fraction was from 60% to 65% without any wall motion abnormalities. On current admission, she had an echo done on August 04, 2016 and it showed decreased cardiac function with LVEF 35% to 40% without wall motion abnormalities. She had a slightly elevated pulmonary pressure of 34 mmHg, with normal central pressures of 3 mmHg. No pericardial effusion. Her Trops on this admission were negative. She also has a history of moderate restrictive lung disease, which was documented on medical records from 2009 and her last pulmonary function test which was done in 2008. The last time that I can see in medical records showed that her DLCO corrected was 55%. The patient was seen by maintenance representative Dr. Banks in hospital follow up, on July 30, 2016, and it was noted that her heart rate majority of time was controlled and was less than 100 bpm, so maintenance representative signed off. Today, hospitalist asked us to reassess the patient because her heart rate has been again high in more than 100 bpm. The patient had a chest x-ray done on August 07, which showed unchanged right pulmonary radio-opacity suspicious for multifocal pneumonia. I checked the patient today. She was sitting in chair comfortably. The patient stated that she was feeling fine. Denied having any chest discomfort. She moves around in the room and tells me that as long as she does not walk much, she does not have dyspnea on exertion, although she gets dyspnea on exertion with physical activity which is not much of unusual. She tells me that she is able to lay down flat without any difficulty breathing. She has obstructive sleep apnea and uses CPAP machine regularly. Denies PND. She has a good appetite; voids normally. PHYSICAL EXAM: Her vital signs today show temperature 36.9, blood pressure 122/66, pulse oximetry shows saturation 95% on room air. On telemetry, it shows that she is in atrial fibrillation with heart rate in one-teens bpm, sometimes getting to 120 beats per minute. She has not been febrile recently. General: She is not in acute distress, appropriately interactive. ENT: Sclerae anicteric, mucous membranes moist. Neck supple. No lymphadenopathy, no thyromegaly. Cardiovascular: Irregularly irregular rhythm, no murmur appreciated, no rubs or gallops appreciated. JVP is not elevated at 45 degrees. Pulmonary: Breathing effort normal, diffuse fine crackles laterally noted, no wheezing. The crackles are more pronounced on the right than on the left. Abdomen nontender with palpation. Extremities: She has trace lower extremity edema. Skin: No rash. Neuro: Alert and oriented x3. No gross abnormalities. LABS: Labs from August 09, 2016, show stable chronic anemia with hemoglobin 9.4, hematocrit 31.2. Her white blood cells are not elevated and is 4.7 . She has normal kidney function with a creatinine 0.98 and BUN 11, Normal potassium level of 4.3. Her calcium is 7.8. Her magnesium level is normal and is 2.4, and she has normal LFTs. Her INR is subtherapeutic, 1.32. It should be noted that recently, on August 05, 2016, her INR was supratherapeutic; it was 3.65 and warfarin was held, and currently, she is subtherapeutic as I noted. ASSESSMENT AND PLAN: 1. Atrial fibrillation with rapid ventricular response. Her aatrial fibrillation heart rate is one-teens, sometimes going in 120s. It is likely mediated with her unresolved pneumonia. It should be noted also that on this admission the patient had abnormal TSH on July 31, 2016; it was 0.381, and her levothyroxine dose was adjusted. Currently, she is on metoprolol succinate 200 mg twice a day, which we recommend to continue. Keeping in mind that her systolic blood pressure has been in 120s, would recommend to add digoxin for better heart rate control. Would recommend to start digoxin 0.25 mg every 6 hours x3. That will be the loading dose. After that, the patient can be switched to maintenance dose 0.25 mg daily. She needs to be anticoagulated; she was anticoagulated until her INR became supratherapeutic and warfarin was held. My understanding is that warfarin was not restarted yet and patient's INR is becoming more and more subtherapeutic with INR yesterday 1.48 and today 1.32. Would recommend to restart warfarin. 2. Cardiomyopathy with decreased ejection fraction of 35% to 40%, comparing to her echo from 2014 when her ejection fraction was 60-65%; she does not have wall motion abnormalities. She is not fluid overloaded on exam and she does not have signs of congestive heart failure. Would recommend to continue current medications without change, which include losartan 25 mg daily. She is already on metoprolol succinate as I noted above, and she does not need to be diuresed at this point. 3. Community-acquired pneumonia. This is managed by hospitalist team, and as I noted above, chest x-ray from July 2011 showed unchanged right pulmonary radio-opacity suspicious for multifocal pneumonia, although X-ray results can lag with improving clinical picture. She is afebrile, and on exam, but she still has bilateral fine diffuse crackles. 4. Hypothyroidism. As I noted above, her TSH was abnormal this admission and levothyroxine dose was adjusted. At some point, she will need recheck of her TFTs. The case and Assessment and Plan was discussed and coordinated with Fraud Examiner Dr. Lux. REYNA
[2016-08-10 03:32] VITALS: BP 146/70; PULSE 106; RESP 20; O2SAT 99
[2016-08-10 04:35] LABS: EOSINOPHILS % (AUTO) 2.5 % (0-5); MONOCYTES % (AUTO) 8.2 % (4-12); Mean Corpuscular Hemoglobin 26.6 pg (27.0-35.0); Mean Corpuscular Volume 89.5 fL (81-100); Platelet Count 361 bil/L (150-400)
[2016-08-10 04:42] LABS: INR 1.19 ratio
--- NOTE | 2016-08-10 07:51 | PCM.PHAPRO ---
Progress Shortness of Breath. . 14-Jul 14-Jul 1.48 1.32 1.19 -0.53 -0.16 -0.13 3 4 MG 4 MG Elmer Hassan Aug 10, 2016 07:51
--- NOTE | 2016-08-10 07:53 | PROG NOTE ---
[address] [address] PROGRESS NOTE PATIENT: DANITZA PUTNAM : 1935 MR#: [id number] ADMIT: 07/30/2016 JOB ID: [id number] DATE: 08/09/2016 SUBJECTIVE: Dr. Alvarez has asked the Cardiology Service to re-consult on this 80-year-old female with recently diagnosed atrial fibrillation, to assist with heart rate control. Please see the progress note by Enrique Stone PA-C, for complete details. I have interviewed and examined the patient, and agree with Ms. Stone's note. Briefly, the patient was admitted with a community-acquired pneumonia with atrial fibrillation that has been challenging to rate control despite advancing doses of metoprolol. She has moderately reduced left ventricular systolic function, with an EF around 35-40%. Her heart rates have generally been in the 100-120 range. The patient today states that she feels well and denies any sense of any palpitations or significant dyspnea. She has had no chest discomfort, although has not ambulated much. PHYSICAL EXAMINATION: As per Ms. Stone's note. IMPRESSION: 1. Atrial fibrillation with a rapid ventricular response. I suspect this is a reflection of her intrinsic stress from her pneumonia and will likely improve. I would not be overly aggressive in trying to reduce her heart rates, being satisfied with heart rates in the 90-100 range. This may also improve as her thyroid condition improves. In the meantime, I would recommend digitalization with digoxin loading dose, followed by 0.25 mg daily. She should have a trough digoxin level checked in around 4-5 days. If this fails to adequately control her heart rate, then addition of low-dose diltiazem could be considered, but with close observation of her blood pressure. She is currently subtherapeutic on her warfarin, and this should be adjusted to maintain INR of 2.0-3.0. 2. Cardiomyopathy. She does not appear to be volume overloaded, and would continue with afterload reduction and metoprolol. 3. Pneumonia. Per the hospitalist team. 4. Hypothyroidism, with a depressed TSH. Per the hospitalist. RECOMMENDATIONS: 1. Digoxin loading dose, followed by 0.25 mg daily. 2. Check a trough digoxin level in 4-5 days. Adjust warfarin to maintain an INR of 2.0-3.0. 3. Ensure that potassium stays greater than 4.0 and magnesium greater than 2.0. 4. The patient should follow up with Dr. Gilmore as an outpatient in around 3-4 weeks post discharge. At this point, I will sign off. If you have any further questions or concerns, please give the Cardiology service a call. TIME SPENT: I spent over 40 minutes discussing the case with Ms. Stone, reviewing the records, examining the patient, and answering the patient's questions and providing documentation. REYNA
[2016-08-10] MEDS: ZAFIRLUKAST 20 MG PO SCH (08:30)
[2016-08-10 10:08] VITALS: PULSE 84; RESP 16; O2SAT 94
[2016-08-10 10:44] VITALS: BP 134/83; PULSE 90; RESP 20; O2SAT 97
[2016-08-10] MEDS: Fluticasone-Salmeterol 500-50 Inhaler INHALATION SCH (10:46)
[2016-08-10 10:47] VITALS: PULSE 94
[2016-08-10] MEDS: MeTOProlol XL 50 mg ER24 Tablet PO SCH (10:47)
[2016-08-10] MEDS: Fluticasone 0.05% 15 Spray/2 Gm 16 Gm Nasal Spray NASAL SCH (10:51)
[2016-08-10] MEDS ORDERED: LEVO88TA4 PO (11:54)
[2016-08-10] MEDS ORDERED: WARF3TAB7 PO (11:54)
[2016-08-10] MEDS ORDERED: LOSA25TA2 PO (11:54)
[2016-08-10] MEDS ORDERED: DIGO250T72 PO (11:54)
[2016-08-10] MEDS ORDERED: METO-272 PO (11:54)
--- NOTE | 2016-08-10 12:06 | PCM.DIMED ---
Jasmyne Alvarez DO 08/10/16 0803: Discharge Instructions Date of Service Aug 10, 2016 Dates of Hospitalization Jul 30, 2016 at 07:12 Discharge Diagnosis Discharge Diagnosis 1. Atrial fibrillation with RVR, present on admission, just began warfarin for anticoagulation 2 days prior to admission. Active. 2. Community acquired pneumonia possible aspiration pneumonia, present on admission. Improved. 3. Systolic congestive heart failure, compensated, present on admission, chronic. 4. Bilateral lower extremity pain, present on admission, chronic. 5. Dysphagia, chronic, present on admission. Active. 6. Hypothyroid, present on admission, chronic. 7. Chronic anemia, present on admission, stable. 8. Acute on chronic kidney failure, present on admission, improved. 9. Hypertension, chronic, stable. 10. Dyslipidemia, present on admission, chronic. 11. COPD, present on admission, chronic. 12. Depression, present on admission, chronic. 13. History of [place], chronic, stable. 14. Allergies, chronic, stable. 15. Acute on chronic pain, present on admission, stable. Medication Instructions We make a few changes to your medication list: - Stop taking the Amlodipine and Diltiazem. We added 2 new medications called Metoprolol and Digoxin. Please take it as directed. - We reduced the Losartan from 50mg to 25mg. Please take the Losartan 25mg as directed. - Continue to take the ASA, Plavix, and Statin. - Stop taking the Lasix. You can discuss with your clinical biostatistician, Dr. Gilmore, about resuming it if you develop leg swelling. - We reduced the Levothyroxine to 88mcg. Please stop taking the home dose of 112mcg. - Your Warfarin is also reduced to 3mg PO 1 tab once daily. You will need to have INR/protime check this Monday08/12/16. Diet Low fat, Low Sodium, Heart Healthy Activity No restrictions Call your provider Fever or Chills, Shortness of breath, Chest pain, Weakness (unilateral) Patient Instructions - You were found to have uncontrolled Afib and we made some changes to your medications. Please see above for details. Take all your medications as directed. - You need to have a Protime/INR and Digoxin level check in 2 days, on Monday. The results should be sent to Dr. Hill Lucio. - You have pneumonia that was treated with antibiotics for 10 days. You also need to follow up with your PCP to order a Chest XR to determine improvement of your pneumonia in 2 weeks. - Because there is a mass on your neck, you will possibly need a biopsy to rule out cancer. Please follow up with Dr. Lucio to have this set up. - Follow up with Dr. Gilmore in 2 weeks. - Your back pain has been stable and was likely exacerbated from the lung issue. Follow-up plan - Follow up with PCP in 1 week. - Repeat chest XR in 2 weeks. - Check INR and Digoxin level this Monday08/12/16. Results should be sent to Dr. Hill Lucio. - Follow up the neck mass as outpatient Follow-up Provider: Hill Lucio MD Follow-up with PCP in: 1 week Provider: Chery Gilmore MD Follow-up in: 2 weeks Elaina Soto MD 08/11/16 1357: Discharge Instructions Attending's Statement The patient was seen and examined together with Dr. Alvarez on 08-10-16 and I agree with the history, exam and plan as outlined in the note above. Jasmyne Alvarez DO Aug 10, 2016 08:03 Elaina Soto MD Aug 11, 2016 13:57
[2016-08-10 13:19] VITALS: PULSE 80
--- NOTE | 2016-08-10 14:09 | NUR ---
Social Work Note: Discharge Data& Assessment: EMR reviewed. Per pt is medically ready to discharge home via POV. Brad Han is a 80 year old female admitted on 07/30/2016 for rapid AFIB. Per pt is medically improved and ready to discharge. Pt has been ambulating 200+ ft with her walker with the RN. SW met with pt at bedside to confirm discharge plan and assess for any unmet needs. Pt confirmed her son Jamal will be transporting her home today. Pt denies any other needs. No other discharge needs identified. Plan: Per pt is medically improved and ready to discharge home via POV. Pt is ambulating at baseline. Pt denies any other needs. No other discharge needs identified. BRE Esparza
--- NOTE | 2016-08-10 14:15 | NUR ---
Discharge of patient Reviewed discharge instructions with patient and patient's son. Both verbalized understanding. Pt discharged via wheelchair with instructions. Prescriptions faxed to pharmacy per MD. IV and telemetry previously discontinued. Pt left hospital with son to home self care.
--- NOTE | 2016-08-10 21:12 | PCM.DC.MED ---
Discharge Summary Date of Service Aug 10, 2016 Dates of Hospitalization Date of Hospital Admission Jul 30, 2016 at 07:12 Date of Discharge: Aug 10, 2016 Providers: Admitting Physician: Marie Barker DO Primary Care Physician: Hill Lucio MD Attending Physician: Marie Barker DO Diagnosis at Time of Discharge Diagnosis at Time of Discharge 1. Atrial fibrillation with RVR, present on admission, just began warfarin for anticoagulation 2 days prior to admission. Active. 2. Community acquired pneumonia possible aspiration pneumonia, present on admission. Improved. 3. Systolic congestive heart failure, compensated, present on admission, chronic. 4. Bilateral lower extremity pain, present on admission, chronic. 5. Dysphagia, chronic, present on admission. Active. 6. Hypothyroid, present on admission, chronic. 7. Chronic anemia, present on admission, stable. 8. Acute on chronic kidney failure, present on admission, improved. 9. Hypertension, chronic, stable. 10. Dyslipidemia, present on admission, chronic. 11. COPD, present on admission, chronic. 12. Depression, present on admission, chronic. 13. History of MA, chronic, stable. 14. Allergies, chronic, stable. 15. Acute on chronic pain, present on admission, stable. Consultations Cardiology and Pulmonology Procedures XRay, CTs & MRIs X-RAY CHEST, TWO VIEWS IMPRESSION: 1. Unchanged right pulmonary radiopacities suspicious for multifocal pneumonia. Short interval followup is recommended to ensure resolution of this finding and exclude underlying pulmonary pathology. Dictated by: Linda Seth M.D. on 08/07/2016 at 11:02 Approved by: Linda Seth M.D. on 08/07/2016 at 11:03 US VENOUS LEG DUPLEX BILATERAL IMPRESSION: No deep venous thrombosis in the left or right lower extremity. Dictated by: Cindy Rodriges M.D. on 08/05/2016 at 9:29 US SOFT TISSUE OF HEAD OR NECK SONOGRAM IMPRESSION: Nonspecific soft tissue heterogeneous solid mass with mild vascularity. Findings are nonspecific and neoplasm cannot be excluded. Recommend clinical correlation and if indicated sonographically directed fine needle aspiration could be performed for pathologic diagnosis. Dictated by: Quincy Cantor RR Interpreted: Linda Seth MD on 08/03/2016 at 10: 01 Approved by: Linda Seth M.D. on 08/03/2016 at 11:49 X-RAY BARIUM SWALLOW WITH FOOD & VIDEOGRAPHY IMPRESSION: Silent tracheobronchial aspiration. Dictated by: Quincy Cantor RRA Interpreted: Caity Bingham MD on 08/01/2016 at 14:42 Approved by: Caity Bingham MD, PhD on 08/01/2016 at 16:37 CT LUMBAR SPINE WITHOUT CONTRAST IMPRESSION: 1. Multilevel degenerative disc and facet disease, which could be further assessed with MRI, if clinically indicated. 2. No fracture. 3. Bilateral lower lobe pneumonia. Dictated by: Rosenda Black M.D. on 07/30/2016 at 8:37 X-RAY CHEST ONE VIEW, PORTABLE IMPRESSION: 1. Mild right lung base atelectasis versus pneumonia. 2. Cardiomegaly. Dictated by: Rosenda Black M.D. on 07/30/2016 at 7:43 . Cardiac Echo Impression Echocardiogram Interpretation Summary: The left ventricle is normal in size. There is normal left ventricular wall thickness. The ejection fraction is estimated to be 35-40%. There are no focal wall motion abnormalities. The right ventricle is normal in size and function. There is mild mitral annular calcification. There is mild mitral regurgitation. The aortic valve is normal in structure and function. The left atrium is severely dilated. The right ventricular systolic pressure is estimated at 34 mmHg assuming a right atrial pressure of 3 mm Hg. There is no pericardial effusion. Compared to the previous study, the patient is now in atrial fibrillation and LV systolic function is worse. Reading Physician:05:13 PM . Brief History Per Pulmonology's Consultation: Mayi Han is an 80-year-old female with a past medical history significant for asthma, frequent bronchitis, systolic congestive heart failure, and obstructive sleep apnea on BiPAP who presented to [facility] Emergency Department via EMS from a doctor's office for elevated pulse. She was found to be in atrial fibrillation with RVR on admission thought to be secondary to CAP. She also was experiencing bilateral buttock pain/cramps and a nonproductive cough that later was initially productive of "blood-tinged/brown sputum" that is now clear in color. She endorses that her cough is chronic in nature but that 1-2 days into her admission it worsened. She does not appreciate any timing or exposures. She denies fever but endorses chills. She denies shortness of breath, nasal congestion, and sore throat. She has had pneumonia in the past the last time being 1991. She has a history of asthma and describes exacerbations with chemical solvents. She is not on oxygen at home. She does however, use BiPAP whenever she is sleeping for SIDDHARTHA and questionable OHS. She also uses Advair twice daily and occasionally her albuterol inhaler approximately once every 6 months. She does have a history of dysphagia and aspiration x approximately 2 years. She has a history of systolic congestive heart failure which is worsened. Exposure history: She was born and raised in [place] in [place]. She states she has lived all over the [facility]. She has also lived in [place], [place], and [place]. She spent a significant time in a [place], [place] with her when he was stationed at a [employer]. She has also [place]. She grew up on a farm where her father farmed cotton and alfalfa in [place]. 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 She has no real exposure to livestock. She reports having various dogs during her childhood and a poodle in her adult life. She and her would travel to [place] by boat every year for many years. She denies history of tuberculosis or exposure to tuberculosis. However, her aunt had tuberculosis and at the age of 21 and her uncle had tuberculosis and was treated and survived. She was not around her uncle until later in life. 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 Her hobbies include crafts and selling. She denies exposure to dust, sand, or molds. She has a significant smoking history of 30 pack years. . Hospital Course Patient is an 80 year-old female with a medical history that includes hypertension, sciatica, CHF, MA, atrial fibrillation, chronic anemia, asthma, and renal cancer s/p right nephrectomy who presented to the ED via EMS with bilateral buttocks pain (R>L) that radiated down her legs to her knees. 1. Atrial fibrillation with RVR, present on admission, just began warfarin for anticoagulation 2 days prior to admission. Active. - Amiodarone drip used for better control of heart rate. Discontinued 08/04/16. - Diltiazem discontinued 08/06/16. - Dr. Banks of cardiology was consulted and we appreciate his input. Cardiology signed of on 08/07/16. - HR not well controlled so metoprolol succinate increased to 200 mg BID. The dose was discussed with Dr. Lux, who agreed with up titrating the Metoprolol until HR is under control. - Discussed the case of Enrique from cardiology and asked her to help with rate control as she saw the patient a few days ago. - She was given Digoxin 0.25mg Q6H x3 loading dose on 08/09/16 then start on Digoxin 0.25 mg PO at discharge. Check Digoxin level in 2 days. - Continue warfarin per pharmacy recommendations. INR subtherapeutic this morning (1.19). Will discharge on Warfarin 3mg PO daily and have INR checked in 2 days. - Keep Mg >2 and K >4 per Cardiology. - Follow up with Dr. Gilmore in 2-3 weeks. 2. Community acquired pneumonia possible aspiration pneumonia, present on admission, active. - Seen on x-ray and lumbar CT, which showed bilateral lobe pneumonia. No micro evidence to confirm. - Procalcitonin was 1.82, trending down to 0.17. - Ceftriaxone and azithromycin stopped and switched to Zosyn for aspiration pneumonia coverage on 08/01/16. D/C Zosyn on 08/08/2016. Total of 10 days of all antibiotics. - Repeat 2-view CXR ordered on 08/07/16, which showed unchanged right pulmonary radiopacities suspicious for multifocal pneumonia. - The patient has been discussed with Dr. Anderson. We appreciate Dr. Anderson 's recommendations. - Will likely need follow up CXR in 6 weeks as out patient. 3. Systolic congestive heart failure, compensated, present on admission, chronic. - Repeat echo shows worsened LV sytolic function compared to the previous Echo in 12/2013. The ejection fraction is estimated to be 35-40% (60-65% before). - Continue beta ludin at the above dose at discharge. - BP have been stable, thus will resume Losartan, but decreased the home dose to 25mg PO daily given normal BP. - No signs of fluid overload and BP has been within normal limit, thus, will not continue home Lasix. 4. Bilateral lower extremity pain, present on admission, chronic. - Venous U/S ruled out DVT. Likely muscle cramping. 5. Dysphagia, chronic, present on admission. Active - Patient reports difficultly swallowing solids and has a palpable submandibular neck mass - Prior modified barium swallow imaging showed severe spontaneous gastroesophageal reflux - US neck showed heterogeneous solid mass with mild vascularity - Recommend follow up as an outpatient with fine needle biopsy of the mass 6. Hypothyroid, present on admission, chronic - TSH 0.381, mildly low but free T4 within normal limits - Continue levothyroxine 88 mcg. Dose decreased due to uncontrolled a. fib. - Will need outpatient lab follow up. 7. Chronic anemia, present on admission, stable. - Continue Ferrous sulfate 325 mg BID. - Continue to monitor CBC. 8. Acute on chronic kidney failure, present on admission, improved. - S/p right nephrectomy - Continue to monitor BMP. - Avoid nephrotoxic medications 9. Hypertension, chronic, stable. - Stop Isosorbide mononitrate 30mg per Cardiology's recommendation. Patient does not have ischemic heart disease by cardiac cath on 01/18/2014. - Furosemide and losartan were held since 08/04 as patient's blood pressure was low. - Resume Losartan 25mg daily (reduced from home dose of 50mg daily) 10. Dyslipidemia, present on admission, chronic - Continue Atorvastatin 80 mg daily. 11. COPD, present on admission, chronic - DuoNebs Q6hrs PRN; albuterol inhalers Q4hrs PRN - Continue supplemental O2 with O2 goal 90-94%. Can titrate down O2 to meet these goals. 12. Depression, present on admission, chronic - Continue Citalopram 40mg daily. 13. History of MA, chronic, stable. - Note that QTc was 555 on admission. - Avoid QT prolongation drugs. - Patient was resumed on Plavix at discharge. She needs to discuss with Dr. Gilmore whether she should continue or stop taking it. 14. Allergies, present on admission, chronic - Continued Zafirlukast 15. Acute on chronic pain, present on admission - Continued home tramadol PRN - Follow up as outpatient - Acetaminophen as needed for mild pain/fever/headache - Bowel regimen as needed & continued home dose of docusate - Antiemetic as needed Exam Vital Signs (Last) Date Time Temp Pulse Resp B/P Pulse Ox O2 Delivery O2 Flow Rate FiO2 3/15/17 13:19 80 08/10/16 10:44 36.7 20 134/83 97 Room Air 08/10/16 03:32 2.00 Exam General: Elderly female sitting in bedside chair and in no acute distress, well- developed, well-nourished, appropriately interactive HEENT: Normocephalic, atraumatic. Anicteric sclerae, moist conjunctivae, and no lid lag. Moist oral mucosa without thrush. Cardiovascular: Irregularly irregular rhythm without murmurs, rubs, or gallops appreciated Pulmonary: Scattered rales with no wheezing noted. Normal respiratory effort with no use of accessory muscles. Abdomen: Bowel tones present. Soft, nontender, nondistended. No hepatosplenomegaly or masses appreciated. Extremities: Trace edema. No clubbing or cyanosis. Tender to palpation at the calves (chronic per the patient) Skin: Normal temperature, turgor, and texture; no rash, ulcers, or subcutaneous nodules appreciated. Neurological: Normal speech. Moving all extremities spontaneously. Psychiatric: Normal mood and affect. Alert and oriented to person, place, and time. Test 07/30/16 05:10 07/30/16 12:36 07/31/16 02:25 07/31/16 05:40 Activated Partial Thromboplast Time 31.9sec (22.8-33.0) Hemoglobin A1c 5.6% (4.8-5.6) Pro-B-Type Natriuretic Peptide 714.4pg/mL (0-738) Hold Smith Top Tube Received (Received) Urine Legionella pneumophilia Ag Negative (Negative) Troponin T 0.010ug/L (0.0-0.011) Thyroid Stimulating Hormone (TSH) 0.381uIU/mL (0.450-4.500) Test 07/31/16 07:36 08/03/16 20:30 08/07/16 04:11 08/08/16 03:13 Free Thyroxine 1.56ng/dL (0.82-1.77) Urine Color Yellow (YELLOW) Urine Appearance Hazy (CLEAR,HAZY) Urine pH 6.0 (5.0-8.0) Urine Specific Kellogg 1.015 (1.003-1.035) Urine Protein Tracemg/dL (NEG,TRACE) Urine Glucose (UA) Negativemg/dL (NEGATIVE) Urine Ketones Negativemg/dL (NEGATIVE) Urine Occult Blood Small (NEGATIVE) Urine Nitrite Negative (NEGATIVE) Urine Bilirubin Negative (NEGATIVE) Urine Urobilinogen Normalmg/dL (NORMAL) Urine Leukocyte Esterase Trace (NEGATIVE) Urine RBC 3-10/hpf (0-2) Urine WBC 6-10/hpf (0-5) Urine Epithelial Cells Moderate/hpf (NONE-MOD) Urine Crystals None seen (NONE SEEN) Urine Bacteria Few/hpf (NONE-FEW) Urine Hyaline Casts Rare/lpf (NONE) Urine Granular Casts None seen (NONE SEEN) Urine Waxy Casts None seen (NONE SEEN) Urine Red Blood Cell Casts None seen (NONE SEEN) Urine White Blood Cell Casts None seen (NONE SEEN) Urine Mucus None seen (None Seen) Urine Trichomonas None seen (NONE SEEN) Urine Yeast None (NONE SEEN) Urinalysis Comment None Lactic Acid Level 0.8mmol/L (0.4-2.0) Phosphorus Level 2.8mg/dL (2.5-4.9) Test 08/09/16 03:05 08/10/16 03:55 Magnesium Level 2.4mg/dL (1.6-2.6) White Blood Count 5.1th/mm3 (3.8-10.1) Red Blood Count 3.53mil/mm3 (3.90-5.20) Hemoglobin 9.4g/dL (12.0-15.6) Hematocrit 31.6% (35.0-46.0) Mean Corpuscular Volume 89.5fL (81-100) Mean Corpuscular Hemoglobin 26.6pg (27.0-35.0) Mean Corpuscular Hemoglobin Concent 29.7% (32.0-37.0) Red Cell Distribution Width 14.5% (12.3-15.4) Platelet Count 361bil/L (150-400) Neutrophils (%) (Auto) 62.0% (40-74) Lymphocytes (%) (Auto) 26.1% (14-46) Monocytes (%) (Auto) 8.2% (4-12) Eosinophils (%) (Auto) 2.5% (0-5) Basophils (%) (Auto) 1.0% (0-3) Prothrombin Time 12.8sec (8.1-12.5) Prothromb Time International Ratio 1.19ratio Sodium Level 139mEq/L (134-144) Potassium Level 4.7mEq/L (3.5-5.2) Chloride Level 105mEq/L (97-108) Carbon Dioxide Level 23mmol/L (18-29) Blood Urea Nitrogen 14mg/dL (8-27) Creatinine 1.10mg/dL (0.57-1.00) Estimat Glomerular Filtration Rate 68mL/min (>59) Glucose Level 111mg/dL (60-99) Calcium Level 7.8mg/dL (8.5-10.1) Total Bilirubin 0.2mg/dL (0.0-1.2) Aspartate Amino Transf (AST/SGOT) 29U/L (0-50) Alanine Aminotransferase (ALT/SGPT) 13U/L (0-32) Alkaline Phosphatase 73U/L (25-165) Total Protein 6.2g/dL (6.4-8.4) Albumin 2.7g/dL (3.4-5.0) Procalcitonin 0.16ng/mL (0.00-0.08) Microbiology Results Sputum culture grew light normal krista. Respiratory viral PCR negative. Blood culture 2 shows no growth after 5 days. Strep pneumonia and legionella urine antigens negative. MRSA screen negative. . Discharge Medications Discharge Medications ([Aspirin]) 81 MG TAB.CHEW 81 MG PO DAILY Prescribed by: DONI PIMENTEL MD Atorvastatin Calcium (Atorvastatin Calcium) 80 Mg Tablet 80 MG PO DAILY ( Reported) Citalopram Hydrobromide (Celexa) 40 Mg Tablet 40 MG PO DAILY (Reported) Clopidogrel Bisulfate (Plavix) 75 Mg Tablet 75 MG PO DAILY Prescribed by: DONI PIMENTEL MD Digoxin (Digoxin) 250 Mcg Tablet 0.25 MG PO DAILY@12 Prescribed by: MEDHAT CHAPPELL DO Docusate Sodium (Stool Softener) 100 Mg Capsule 100 MG PO DAILY (Reported) Ferrous Sulfate (Iron) 325 Mg Capsule.er 325 MG PO BID (Reported) Fluticasone/Salmeterol (Advair 500-50 Diskus) 1 Each Disk.w.dev 1 PUFF IH BID ( Reported) Levothyroxine (Levothyroxine) 88 Mcg Tablet 88 MCG PO 06 Prescribed by: MEDHAT CHAPPELL DO Losartan Potassium (Cozaar) 25 Mg Tablet 25 MG PO DAILY Prescribed by: MEDHAT CHAPPELL DO Metoprolol Succinate ER (Metoprolol Succinate ER) 50 Mg Tab.er.24h 200 MG PO BID Prescribed by: MEDHAT CHAPPELL DO Trazodone (Trazodone) 100 Mg Tablet 100 MG PO HS (Reported) Vitamin B Complex (Stress B) 1 Each Tablet 1 EACH PO DAILY (Reported) Warfarin Sodium (Warfarin Sodium) 3 Mg Tablet 3 MG PO DAILY Prescribed by: MEDHAT CHAPPELL DO Zafirlukast (Accolate) 20 Mg Tablet 20 MG PO BID (Reported) As needed Albuterol/Ipratropium (Combivent Inhaler) 14.7 Gm Aero 2 PUFFS INH PRN For Shortness of Breath (Reported) Nitroglycerin SL (Nitrostat) 0.4 Mg Tab.subl 0.4 MG SL Q5MIN PRN PRN For Chest Pain (Reported) Tramadol (Tramadol) 50 Mg Tablet 100 MG PO BID PRN PRN For Pain (Reported) Additional med instructions We make a few changes to your medication list: - Stop taking the Amlodipine and Diltiazem. We added 2 new medications called Metoprolol and Digoxin. Please take it as directed. - We reduced the Losartan from 50mg to 25mg. Please take the Losartan 25mg as directed. - Continue to take the ASA, Plavix, and Statin. - Stop taking the Lasix. You can discuss with your substation mechanic, Dr. Gilmore, about resuming it if you develop leg swelling. - We reduced the Levothyroxine to 88mcg. Please stop taking the home dose of 112mcg. - Your Warfarin is also reduced to 3mg PO 1 tab once daily. You will need to have INR/protime check this Monday08/12/16. Followup Plan Disposition: Home Follow-up plan - Follow up with PCP in 1 week. - Repeat chest XR in 2 weeks. - Check INR and Digoxin level this Monday08/12/16. Results should be sent to Dr. Hill Lucio. - Follow up the neck mass as outpatient Discharge Diet: Low fat, Low Sodium, Heart Healthy Discharge Activity: No restrictions Patient Instructions - You were found to have uncontrolled Afib and we made some changes to your medications. Please see above for details. Take all your medications as directed. - You need to have a Protime/INR and Digoxin level check in 2 days, on Monday. The results should be sent to Dr. Hill Lucio. - You have pneumonia that was treated with antibiotics for 10 days. You also need to follow up with your PCP to order a Chest XR to determine improvement of your pneumonia in 2 weeks. - Because there is a mass on your neck, you will possibly need a biopsy to rule out cancer. Please follow up with Dr. Lucio to have this set up. - Follow up with Dr. Gilmore in 2 weeks. - Your back pain has been stable and was likely exacerbated from the lung issue. Follow-up Provider: Hill Lucio MD Follow-up with PCP in: 1 week Provider: Chery Gilmore MD Follow-up in: 2 weeks Attending Statement The patient was seen and examined together with Dr. Chappell on 08-10-16 and I agree with the history, exam and plan as outlined in the note above. copies to: Chery Gilmore MD; Hill Lucio MD, Ngochanh H DO Aug 10, 2016 21:12 Elaina Soto MD Aug 11, 2016 13:58
== END 2016-08-10 14:15 | disposition home or self-care (01) | DRG 308 ==
LOC: SED 04:28 → OBSVTOIN 07:12 → MPC 07:12 → PCC 08-04 17:24
PROVIDERS: ADMIT Internal Medicine; ATTEND Neuromusculoskeletal Medicine & OMM
DX: I48.1 Persistent atrial fibrillation (principal); J69.0 Pneumonitis due to inhalation of food and vomit; I50.32 Chronic diastolic (congestive) heart failure; N17.9 Acute kidney failure, unspecified; E78.5 Hyperlipidemia, unspecified; I25.10 Atherosclerotic heart disease of native coronary artery without angina pectoris; D64.9 Anemia, unspecified; E03.9 Hypothyroidism, unspecified; F32.9 Major depressive disorder, single episode, unspecified; J45.40 Moderate persistent asthma, uncomplicated; I25.2 Old myocardial infarction; Z90.5 Acquired absence of kidney; Z85.528 Personal history of other malignant neoplasm of kidney; Z87.891 Personal history of nicotine dependence; Z66 Do not resuscitate; R13.10 Dysphagia, unspecified; G47.33 Obstructive sleep apnea (adult) (pediatric); M79.662 Pain in left lower leg; M79.661 Pain in right lower leg; M54.32 Sciatica, left side; M54.31 Sciatica, right side; N18.3 Chronic kidney disease, stage 3 (moderate); I12.9 Hypertensive chronic kidney disease with stage 1 through stage 4 chronic kidney disease, or unspecified chronic kidney disease